=== PATIENT | female | born 1940 | race Caucasian/White ===

== ENCOUNTER 2016-12-26 05:54 | Emergency (ER) | payer OTHER ==
[~2016-12-26] VITALS: Ht 157.5 cm; Wt 79.4 kg
[~2016-12-26 05:54] MED LIST: FERR325T58 PO; HYDR-963 PO
[2016-12-26 06:05] VITALS: BP 190/71
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
[2016-12-26] MEDS ORDERED: ACETAMINOPHEN 500 MG TABLET PO ONE (06:30)
[2016-12-26] MEDS ORDERED: IBUPROFEN 400 MG TABLET. PO ONE (06:30)
[2016-12-26] MEDS ORDERED: NAPR-683 PO (07:20)
[2016-12-26] MEDS ORDERED: ACET325T9 PO (07:20)
--- NOTE | 2016-12-26 07:28 | RAD ---
Indication: Right elbow pain. Patient woke up with a swollen elbow. Technique: 3 views of the right elbow are submitted for review. No comparison is available. Findings: There is no fracture or dislocation. There is no displacement of fat pads/joint effusion. There is no gross bone destruction. There is no radiopaque foreign body Impression: Negative for fracture.
== END 2016-12-26 07:38 | disposition home or self-care (01) ==
LOC: ER 05:54
DX: M25.521 Pain in right elbow (principal); M19.90 Unspecified osteoarthritis, unspecified site; Z88.2 Allergy status to sulfonamides
CPT/HCPCS: 73080; 99284

== ENCOUNTER → 2017-05-03 | Outpatient (CLI) | payer OTHER | END | disposition home or self-care (01) | LOC: KCIC MRI 14:57 | DX: S83.232A Complex tear of medial meniscus, current injury, left knee, initial encounter (principal); M17.12 Unilateral primary osteoarthritis, left knee; M25.762 Osteophyte, left knee; M79.89 Other specified soft tissue disorders; R60.0 Localized edema; X58.XXXA Exposure to other specified factors, initial encounter; Y93.89 Activity, other specified; Y92.89 Other specified places as the place of occurrence of the external cause; Y99.8 Other external cause status | CPT/HCPCS: 73721 ==

== ENCOUNTER → 2017-07-17 | Outpatient (CLI) | payer OTHER ==
[2017-07-17 21:14] LABS: MRSA BY PCR Negative (Negative)
== END | disposition home or self-care (01) ==
LOC: SURGPAT 13:02
DX: Z01.818 Encounter for other preprocedural examination (principal); M17.12 Unilateral primary osteoarthritis, left knee
CPT/HCPCS: 36415; 71046; 87641; 93005

== ENCOUNTER → 2017-08-02 | Outpatient (CLI) | payer OTHER | END | disposition home or self-care (01) | LOC: ECHO 08:15 | DX: Z01.810 Encounter for preprocedural cardiovascular examination (principal); I08.1 Rheumatic disorders of both mitral and tricuspid valves; I31.3 Pericardial effusion (noninflammatory) | CPT/HCPCS: 93306 ==

== ENCOUNTER 2017-08-08 05:34 | Inpatient (IN) | payer OTHER ==
[2017-08-08] MEDS ORDERED: MELOXICAM 7.5 MG TABLET PO (06:00)
[2017-08-08] MEDS: ACETAMINOPHEN 500 MG TABLET PO (06:51)
[2017-08-08] MEDS: IV RINGERS,LACTATED 1000ML 1,000 ML IV (06:52)
[2017-08-08] MEDS ORDERED: MORPHINE SULFATE 4 MG/ML DISP.SYRIN. IV ×3 (07:00→10:00)
[2017-08-08] MEDS ORDERED: fentaNYL PF VIAL 100 MCG/2 ML VIAL IV ×2 (07:00→10:00)
[2017-08-08] MEDS ORDERED: LIDOCAINE 1% PF 2 ML VIAL. ID (07:00)
[2017-08-08] MEDS ORDERED: ONDANSETRON PF 4 MG/2 ML VIAL. IV (07:00)
[2017-08-08] MEDS ORDERED: PROCHLORPERAZINE 10 MG/2 ML VIAL. IV ×2 (07:00→10:00)
[2017-08-08] MEDS ORDERED: fentaNYL PF VIAL 100 MCG/2 ML VIAL (07:07)
[2017-08-08] MEDS ORDERED: PHENYLEPHRINE in 0.9% NACL PF 1 MG/10 ML SYRINGE. IV (07:08)
[2017-08-08] MEDS ORDERED: PROPOFOL 20 ML IV (07:08)
[2017-08-08] MEDS ORDERED: DEXAMETHASONE SOD PHOS 20 MG/5 ML VIAL. (07:29)
[2017-08-08] MEDS ORDERED: ONDANSETRON PF 4 MG/2 ML VIAL. (07:29)
[2017-08-08] MEDS ORDERED: SEVOFLURANE 61 TO 120 MINUTES. IH (07:29)
[2017-08-08] MEDS: TRANEXAMIC ACID 1,000 MG in IV NS 50ML -- 1ST BAG INJ (07:40)
[2017-08-08] MEDS: TOBRAMYCIN POWDER 1.2 GM VIAL. (08:13)
[2017-08-08] MEDS: VANCOMYCIN 1 GM VIAL. (08:14)
[2017-08-08] MEDS: TV=100ml MORPHINE 5 MG, KETOROLAC 30 MG, ROPIVacaine 0.5% PF 60 ML, EPINEPH... INT ART (08:15)
[2017-08-08] MEDS: TRANEXAMIC ACID 1,000 MG in IV NS 50ML -- 2ND BAG INJ (08:45)
[2017-08-08] MEDS ORDERED: PROCHLORPERAZINE 5 MG TABLET. PO (10:00)
[2017-08-08] MEDS ORDERED: ACETAMINOPHEN 325 MG TABLET. PO (10:00)
[2017-08-08] MEDS ORDERED: diphenhydrAMINE 50 MG/ML VIAL IV (10:00)
[2017-08-08] MEDS ORDERED: CALCIUM CARBONATE 500 MG TAB.CHEW PO (10:00)
[2017-08-08] MEDS ORDERED: HYDROcodone/APAP 10/325 1 TAB TABLET PO (10:00)
[2017-08-08] MEDS ORDERED: DEXTROSE 50% 25 GM / 50ML DISP.SYRIN. IV (10:00)
[2017-08-08] MEDS ORDERED: traMADol 50 MG TABLET PO (10:00)
[2017-08-08] MEDS ORDERED: METOCLOPRAMIDE HCL 10 MG/2 ML VIAL. IV (10:00)
[2017-08-08] MEDS ORDERED: 0.9 % SODIUM CHLORIDE 10 ML DISP.SYRIN. IV (10:00)
[2017-08-08] MEDS ORDERED: MORPHINE SULFATE 10 MG/ML VIAL. IV (10:00)
[2017-08-08] MEDS: IV DEXTROSE 5 %-0.45 % NACL 1,000 ML IV (10:37)
[2017-08-08] MEDS: fentaNYL PF VIAL 100 MCG/2 ML VIAL IV ×3 (10:37→11:35)
[2017-08-08] MEDS: MORPHINE SULFATE 4 MG/ML DISP.SYRIN. IV ×2 (13:18→21:22)
[2017-08-08] MEDS: FERROUS SULFATE 325 MG TABLET. PO (16:46)
[2017-08-08] MEDS: HYDROcodone/APAP 7.5/325MG 1 TAB TABLET PO ×2 (16:46→20:07)
[2017-08-08] MEDS: KETOROLAC 30 MG, BUPIVACAINE MPF 0.25% 20 ML, EPINEPHrine 0.5 MG in TOTAL VOLUME SYRING... INT ART (18:00)
[2017-08-08] MEDS: ASPIRIN ENTERIC COATED 325 MG TABLET.DR. PO (21:21)
[2017-08-09] MEDS: oxyCODONE/APAP 5/325 1 TAB TABLET PO (00:56)
[2017-08-09] MEDS: KETOROLAC 30 MG, BUPIVACAINE MPF 0.25% 20 ML, EPINEPHrine 0.5 MG in TOTAL VOLUME SYRING... INT ART (05:49)
[2017-08-09] MEDS ORDERED: MAGNESIUM HYDROXIDE 2,400 MG/30 ML ORAL.SUSP. PO (06:00)
[2017-08-09 06:36] LABS: HEMATOCRIT 32.8 % (36.0-47.0); HEMOGLOBIN 11.3 g/dL (12.0-15.5); MEAN CORPUSCULAR HGB CONC 35 g/dL (31-37)
[2017-08-09] MEDS: MORPHINE SULFATE 4 MG/ML DISP.SYRIN. IV (07:57)
[2017-08-09] MEDS: MULTIVITAMIN with MINERAL TABLET. PO (08:03)
[2017-08-09] MEDS: MELOXICAM 7.5 MG TABLET PO (08:03)
[2017-08-09] MEDS: SENNOSIDES/DOCUSATE 8.6/50MG TABLET. PO (08:03)
[2017-08-09] MEDS: FERROUS SULFATE 325 MG TABLET. PO ×2 (08:04→17:00)
[2017-08-09] MEDS: oxyCODONE/APAP 7.5/325 1 TAB TABLET PO ×4 (08:04→20:52)
[2017-08-09] MEDS: ASPIRIN ENTERIC COATED 325 MG TABLET.DR. PO ×2 (08:04→20:52)
[2017-08-09] MEDS: CHOLECALCIFEROL (VITAMIN D3) 1,000 UNIT TABLET PO (08:04)
[2017-08-09] MEDS ORDERED: BISACODYL 10 MG SUPP.RECT. PR (16:00)
[2017-08-09] MEDS: ZOLPIDEM 5 MG TABLET. PO (22:11)
[2017-08-10] MEDS: oxyCODONE/APAP 7.5/325 1 TAB TABLET PO ×2 (03:22→08:04)
[2017-08-10 04:58] LABS: HEMATOCRIT 31.5 % (36.0-47.0); MEAN CORPUSCULAR HGB CONC 35 g/dL (31-37)
[2017-08-10] MEDS: SENNOSIDES/DOCUSATE 8.6/50MG TABLET. PO (08:04)
[2017-08-10] MEDS: ASPIRIN ENTERIC COATED 325 MG TABLET.DR. PO ×2 (08:04→21:00)
[2017-08-10] MEDS: CHOLECALCIFEROL (VITAMIN D3) 1,000 UNIT TABLET PO (08:04)
[2017-08-10] MEDS: MULTIVITAMIN with MINERAL TABLET. PO (08:04)
[2017-08-10] MEDS: FERROUS SULFATE 325 MG TABLET. PO ×2 (08:05→17:00)
[2017-08-10] MEDS: MELOXICAM 7.5 MG TABLET PO (08:05)
[2017-08-10] MEDS: ONDANSETRON ODT 4 MG TAB.RAPDIS. PO (10:02)
[2017-08-10] MEDS: traMADol 50 MG TABLET PO ×2 (12:57→21:00)
[2017-08-10] MEDS: ZOLPIDEM 5 MG TABLET. PO (22:24)
[2017-08-11 05:07] LABS: HEMATOCRIT 29.7 % (36.0-47.0); HEMOGLOBIN 10.5 g/dL (12.0-15.5); MEAN CORPUSCULAR HGB CONC 35 g/dL (31-37)
[2017-08-11] MEDS: FERROUS SULFATE 325 MG TABLET. PO (07:42)
[2017-08-11] MEDS: MULTIVITAMIN with MINERAL TABLET. PO (08:16)
[2017-08-11] MEDS: SENNOSIDES/DOCUSATE 8.6/50MG TABLET. PO (08:16)
[2017-08-11] MEDS: CHOLECALCIFEROL (VITAMIN D3) 1,000 UNIT TABLET PO (08:16)
[2017-08-11] MEDS: ASPIRIN ENTERIC COATED 325 MG TABLET.DR. PO (08:16)
[2017-08-11] MEDS: traMADol 50 MG TABLET PO ×2 (08:16→12:24)
[2017-08-11] MEDS: MELOXICAM 7.5 MG TABLET PO (08:17)
== END 2017-08-11 14:20 | disposition home health service (06) | DRG 470 ==
LOC: OPSVCIP 05:34 → 4 SOUTHEST 11:05
PROC: 0SRD069 Replacement of Left Knee Joint with Oxidized Zirconium on Polyethylene Synthetic Substitute, Cemented, Open Approach (ICD-10-PCS; principal; 2017-08-08 07:10)
DX: M17.12 Unilateral primary osteoarthritis, left knee (principal); Z82.3 Family history of stroke; Z82.49 Family history of ischemic heart disease and other diseases of the circulatory system; Z83.3 Family history of diabetes mellitus; Z88.2 Allergy status to sulfonamides; Z91.018 Allergy to other foods
CPT/HCPCS: 36415; 73560; 85014; 85018; 86850; 86900; 86901; 88304; 88311; 97110-GO; 97110-GP; 97116-GP; 97150-GP; 97162-GP; 97166-GO; 97530-GP; 97535-GO; A7015; C1713; J0171; J0690; J1100; J1885; J2270; J2370; J2405; J2704; J2795; J3010; J3260; J3370; J3490; J7030; J7120; Q0162

== ENCOUNTER → 2018-07-04 | Outpatient (CLI) | payer OTHER ==
[2017-08-11 13:22] VITALS: BP 129/54
[~2018-07-04] MED LIST changes: +ACET-182 PO; +ACET325T9 PO; +ASPI325T11 PO; +CEPH500T PO; +CHOL10003 PO; +DICL100G18 TP; +GING250C PO; +HYDR-3135 PO; -HYDR-963 PO; +IBUP-1027 PO; +MELO15TA6 PO; +NAPR-683 PO; +TRAM50TA PO; +TURM538C PO
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
== END | disposition home or self-care (01) ==
LOC: PNCL 12:51
PROVIDERS: ATTEND Anesthesiology
DX: M54.5 Low back pain (principal); M79.604 Pain in right leg; M19.90 Unspecified osteoarthritis, unspecified site; Z88.8 Allergy status to other drugs, medicaments and biological substances; Z90.49 Acquired absence of other specified parts of digestive tract; Z96.652 Presence of left artificial knee joint; Z96.612 Presence of left artificial shoulder joint
CPT/HCPCS: G0463

== ENCOUNTER → 2018-07-18 | Outpatient (CLI) | payer OTHER ==
[2017-08-11 13:22] VITALS: BP 129/54
[~2018-07-18] MED LIST changes: +IOHEXOL 180 MG/ML 10 ML VIAL. ONE; +methylPREDNISolone ACETATE 40 MG/ML VIAL. ONE; +methylPREDNISolone ACETATE 80 MG/ML VIAL. ONE
--- NOTE | 2018-07-19 01:14 | PAIN ---
DATE OF SERVICE: 07/18/2018 PROGRESS NOTE FOR PAIN CLINIC: DIAGNOSES: Lumbar radiculopathy with lumbar degenerative disk disease, lumbar spinal stenosis. HISTORY OF PRESENT ILLNESS: The patient is an 78-year-old female who returns for followup status post initial evaluation and preauthorization for lumbar epidural steroid injection. The patient reports still significant pain in the low back, worse in the right lower extremity as it was previously. The patient reports it is a 9-10 on a scale of 10 at its worst, 8-9 on average and 8 at its least and is an 8 today. The patient reports it is aching type, tingling, cramping and becoming more severe with walking, standing, changing positions, better with sitting or lying down. It awakens her from sleep about every 5 hours. The patient reports no new motor or sensory deficits, no new bowel or bladder incontinence, still significant pain with activity as noted. PHYSICAL EXAMINATION: VITAL SIGNS: The patient's blood pressure 148/60, pulse 73, respirations are 20, temperature is 98.4 degrees Fahrenheit, weight is 186 pounds. GENERAL: The patient is awake, alert, oriented, appropriate, very pleasant demeanor. HEENT: Head shows normocephalic, atraumatic. Extraocular movements are intact and symmetrical. Oral cavity: Mucous membranes moist and pink. Dentition is intact. NECK: Shows anterior throat supple without palpable lymphadenopathy noted. Swallow reflex symmetrical. CHEST: Shows normal on inspection. Breath sounds clear to auscultation bilaterally. HEART: Shows S1, S2 clear. No murmurs auscultated. ABDOMEN: Soft, nontender, nondistended. No palpable organomegaly is noted. No rebound or guarding demonstrated. BACK: Shows spine grossly in the midline. Normal appearing thoracic kyphosis and lumbar lordotic curvature. Lumbar paraspinous muscle shows symmetrical on inspection, with palpation shows some moderate tenderness diffusely in the inferior aspect of the paraspinous muscle bilaterally. The patient shows no trigger points. No atrophy, hypertrophy, no asymmetry. The patient has good rotational motion of lumbar spine, both laterally as well as extension and flexion without difficulty. EXTREMITIES: Lower extremities show deep tendon reflexes at 0/4 in the left and 1+ in the right patellar tendon and tendo calcaneus tendons are 1+ bilaterally. Motor exam is strong with approximately 4 on a scale of 5 right, 5/5 on the left with dorsiflexion and extension. Peripheral pulses are 1+ posterior tibia. No peripheral edema is noted bilaterally. Options were discussed with the patient. The patient's old chart was reviewed as her current medication regimen updated. Current review of systems updated today as well. We will proceed with a lumbar epidural steroid injection today with fluoroscopic guidance. Risks were again discussed including, but not limited to bleeding, infection, possibility of epidural hematoma, subsequent neurologic compromise, dural puncture headaches, spinal cord and/or nerve damage, side effects of steroid medication and poor results regarding pain control. The patient understands and wished to proceed. The patient will return to clinic in approximately 2 weeks for followup, was counseled as to return appointment, activity level and side effects to be aware of. DIAGNOSES: Lumbar radiculopathy with lumbar degenerative disk disease, lumbar spinal stenosis. PROCEDURE: Lumbar epidural steroid injection, translaminar approach L4-L5 level using C-arm fluoroscopic guidance under sterile prep and drape using local anesthetic. MEDICATION INJECTED: A total of 120 mg Depo-Medrol plus 10 mL of preservative-free normal saline and 2 mL of Isovue for contrast. CONDITION AT DISCHARGE: Stable. The patient tolerated the procedure well, had no complications. KASSI HIGGINS MD DR: JOSE/nts JOB#: [id number] / [id number]
== END | disposition home or self-care (01) ==
LOC: PNCL 10:32
PROVIDERS: ATTEND Anesthesiology
DX: M51.16 Intervertebral disc disorders with radiculopathy, lumbar region (principal); M48.061 Spinal stenosis, lumbar region without neurogenic claudication; Z88.2 Allergy status to sulfonamides; Z91.018 Allergy to other foods
CPT/HCPCS: 62323; J1030; J1040; Q9965

== ENCOUNTER → 2018-08-08 | Outpatient (CLI) | payer OTHER ==
[2017-08-11 13:22] VITALS: BP 129/54
[~2018-08-08] MED LIST changes: -IOHEXOL 180 MG/ML 10 ML VIAL. ONE; -methylPREDNISolone ACETATE 40 MG/ML VIAL. ONE; -methylPREDNISolone ACETATE 80 MG/ML VIAL. ONE
--- NOTE | 2018-08-09 03:16 | PAIN ---
DATE OF SERVICE: 08/08/2018 PROGRESS NOTE FOR PAIN CLINIC DIAGNOSES: 1. Lumbar radiculopathy with lumbar degenerative disk disease and lumbar spinal stenosis. 2. Cervical radiculopathy with cervical degenerative disk disease. HISTORY OF PRESENT ILLNESS: The patient is an 78-year-old female who returns for followup status post lumbar epidural steroid injection x 1. The patient reports 95% improvement, still maintaining after 2 weeks with almost no pain left in the back, only some very mild aching with walking but otherwise, doing very well, has been increasing her distance walking, increasing her activities at home, traveling and sitting, sleeping better at night. The patient reports her main complaint, however, is neck and right upper extremity pain. The patient has some radiation into the base of the neck and shoulder on the right and also the front of the shoulder and into the arm, forearm and biceps region on the right side in a radicular pattern as well, which is more noticeable now but her low back is doing much better. The patient reports pain in her neck and shoulders tight, shooting, sharp, cramping at times in the base of the neck, sometimes constant, much worse with activity with lifting items, reaching forward or operating a car or driving with her right arm. The patient reports she is right handed and becomes more noticeable but does not awaken her from sleep at night. The patient reports no new motor or sensory deficits and no new changes with significant radicular pain in the right upper extremity as noted. PHYSICAL EXAMINATION: VITAL SIGNS: The patient's blood pressure 152/69, pulse 74, respirations 20 and temperature 97.9 degrees Fahrenheit. Height is 5 feet 1 inch and weight is 189 pounds. GENERAL: The patient is awake, alert, oriented, appropriate and very pleasant demeanor. HEENT: Head shows normocephalic and atraumatic. Extraocular movements are intact and symmetrical. Oral cavity, mucous membranes are moist and pink. Dentition is intact. NECK: Shows anterior throat supple without palpable lymphadenopathy noted. Swallow reflex symmetrical. CHEST: Shows normal on inspection. Breath sounds clear to auscultation bilaterally. HEART: Shows S1 and S2 clear. No murmurs auscultated. ABDOMEN: Obese, soft, nontender and nondistended. BACK: Shows spine grossly in the midline. Cervical paraspinous musculature shows symmetrical on inspection with palpation shows some mild tenderness in the inferior aspect of the cervical paraspinous muscles, more on the right than the left as well as in the superior medial trapezius on the right but not the left without radiation. The patient shows good rotational motion of the cervical spine with some minor tenderness with extension but not with forward flexion and also good rotation of the right and left lateral past 45 degrees without difficulty. Low back shows midline spine, very mild tenderness in the low lumbar distribution, slightly more on the right than the left but good rotational motion of the lumbar spine as well greater than 10 degrees right and left as well as extension greater than 10 degrees, forward flexion 45 degrees without pain reported. EXTREMITIES: The patient's upper extremities show deep tendon reflexes 2+ in the biceps and triceps tendons. Motor exam is approximately 4 on a scale of 5 with right raw sampler strength and 5/5 on the left. Peripheral pulses are 2+ radial distribution. No peripheral edema is noted. Lower extremities show deep tendon reflexes 0/4 in the left patellar, 1+ in the right. Lower extremity motor exam is 4 on a scale 5 on the right and 5/5 on the left with dorsiflexion and extension. Options were discussed with the patient. The patient's old chart was reviewed as well as her current medication regimen updated. Current review of systems updated today as well and we will preauthorize the patient for a cervical epidural steroid injection with clinical cervical radiculopathy at C5-C6 dermatomal distribution on the right. The patient continues to do stretching and strengthening exercises but with significant pain prevailing now that her low back is doing better. Her right arm and shoulder is much more noticeable and tender. We reviewed her MRI scan with her today, which is showing a C5-C6 subarticular disk protrusion contributing neural foramen encroachment, facet arthropathy, moderate right foraminal encroachment and [id number] left foraminal encroachment. The patient will return to the clinic, will have a preauthorization with her insurance provider for a C5-C6 cervical epidural steroid injection for C5-C6 right-sided clinical radiculopathy. The patient will continue with exercises in the meantime, as noted and we will follow up as scheduled for a cervical epidural steroid injection at that time. KASSI HIGGINS MD DR: JOSE/maryse JOB#: [id number] / [id number]
== END | disposition home or self-care (01) ==
LOC: PNCL 10:08
PROVIDERS: ATTEND Anesthesiology
DX: M51.16 Intervertebral disc disorders with radiculopathy, lumbar region (principal); M48.061 Spinal stenosis, lumbar region without neurogenic claudication; M50.10 Cervical disc disorder with radiculopathy, unspecified cervical region
CPT/HCPCS: G0463

== ENCOUNTER → 2018-08-20 | Outpatient (CLI) | payer OTHER ==
[2017-08-11 13:22] VITALS: BP 129/54
[~2018-08-20] MED LIST changes: +IOHEXOL 180 MG/ML 10 ML VIAL. ONE; +methylPREDNISolone ACETATE 40 MG/ML VIAL. ONE; +methylPREDNISolone ACETATE 80 MG/ML VIAL. ONE
--- NOTE | 2018-08-20 22:29 | PAIN ---
DATE OF SERVICE: 08/20/2018 PROGRESS NOTE FOR PAIN CLINIC DIAGNOSES: 1. Lumbar radiculopathy with lumbar degenerative disk disease, lumbar spinal stenosis. 2. Cervical radiculopathy with cervical degenerative disk disease. HISTORY OF PRESENT ILLNESS: The patient is an 78-year-old female who returns for followup status post lumbar epidural steroid injection x 1 with about 95% improvement. We did preauthorize her for a cervical epidural steroid injection. She has some significant right radicular pain, which is still present. The patient reports it is worse with using her upper extremities as she has been dropping some items from the right hand, especially has some cramping and stinging in both the hands at times as well as in the neck on the right side into the right shoulder with activity or even turning the head to the right side. The patient reports over the past week, it has been a 5 on a scale of 10 at its worst, 4 on average, 2 at its least and is a 2 today. The patient reports it is dull and cramping, shooting into the right side as described. The patient reports no new motor or sensory deficits, no new bowel or bladder incontinence or other complaints. PHYSICAL EXAMINATION: VITAL SIGNS: Today, the patient's blood pressure is 160/72, pulse 78, respirations 18, temperature 98.4 degrees Fahrenheit. Height is 5 feet 1 inch, weight is 189 pounds. GENERAL: The patient is awake, alert, oriented, appropriate, very pleasant demeanor. HEENT: Head shows normocephalic, atraumatic. Extraocular movements are intact and symmetrical. Oral cavity shows mucous membranes moist and pink. Dentition intact. NECK: Shows anterior throat supple without palpable lymphadenopathy noted. Swallow reflex symmetrical. CHEST: Shows normal on inspection. Breath sounds are clear to auscultation bilaterally. HEART: Shows S1, S2 clear. No murmurs auscultated. ABDOMEN: Soft, nontender, nondistended. No palpable organomegaly is noted. No rebound or guarding demonstrated. BACK: Shows spine grossly in the midline. Increased thoracic kyphosis, some minor flattening of cervical lordotic curvature. Cervical paraspinous muscle shows symmetrical on inspection, on palpation shows some moderate tenderness diffusely, but only diffusely without significant radiation. EXTREMITIES: The patient's upper extremities show deep tendon reflexes 2+ in the biceps and triceps tendons. Motor exam is 4 on a scale of 5 on the right with steward/stewardess strength with biceps and triceps flexion is 5/5 on the left. Peripheral pulses are 2+ in the radial distribution. No peripheral edema is noted bilaterally. Options were discussed with the patient. The patient's old chart was reviewed, as her medication regimen updated. Current review of systems updated today as well. We will proceed with a cervical epidural steroid injection today with fluoroscopic guidance. Risks were again discussed including, but not limited to, bleeding, infection, possibility of epidural hematoma and subsequent neurological compromise, dural puncture, headaches, spinal cord and/or nerve damage, side effects of steroid medication and poor results regarding pain control. The patient understands and wished to proceed. The patient will return to the clinic in approximately 2 weeks for followup, was counseled as to return appointment, activity level and side effects to be aware of. DIAGNOSIS: Cervical radiculopathy with cervical degenerative disk disease. PROCEDURE: Cervical epidural steroid injection, translaminar approach, C6-C7 level using C-arm fluoroscopic guidance under sterile prep and drape using local anesthetic. MEDICATION INJECTED: A total of 120 mg of Depo-Medrol plus 5 mL of preservative-free normal saline and 2 mL of contrast. CONDITION ON DISCHARGE: Stable. The patient tolerated the procedure well, had no complications. KASSI HIGGINS MD DR: JOSE/maryse JOB#: [id number] / [id number]
== END ==
LOC: PNCL 10:24
PROVIDERS: ATTEND Anesthesiology
DX: M50.123 Cervical disc disorder at C6-C7 level with radiculopathy (principal)
CPT/HCPCS: 62321; J1030; J1040; Q9965

== ENCOUNTER → 2018-09-03 | Outpatient (CLI) | payer OTHER ==
[2017-08-11 13:22] VITALS: BP 129/54
[~2018-09-03] MED LIST changes: -IOHEXOL 180 MG/ML 10 ML VIAL. ONE; -methylPREDNISolone ACETATE 40 MG/ML VIAL. ONE; -methylPREDNISolone ACETATE 80 MG/ML VIAL. ONE
--- NOTE | 2018-09-03 12:24 | PAIN ---
DATE OF SERVICE: 09/03/2018 PROGRESS NOTE FOR PAIN CLINIC DIAGNOSES: 1. Lumbar radiculopathy with lumbar degenerative disk disease, lumbar spinal stenosis. 2. Cervical radiculopathy with cervical degenerative disk disease. HISTORY OF PRESENT ILLNESS: The patient is an 80-year-old female who returns for followup status post both lumbar and cervical epidural steroid injection. The patient did very well, had 75% improvement after last cervical injection and was about 95% improvement after lumbar injection. The patient reports she is doing quite well. She is starting a new workout routine later this week with the [facility] both pool therapy and personal lines sales executive will be working with her 4 days a week. The patient reports she is very much looking forward to this and losing some weight, feeling better. The patient reports still significant improvement in both the neck, shoulders, upper extremities and the low back and leg, now just a dull ache remaining in the low back when she first gets up and is walking, otherwise doing very well. The patient reports her pain is a 5-6 on a scale of 10 at its worst over the past week, 5 on average, 2 at its least and is a 5 today. The patient reports no new motor or sensory deficits, no new bowel or bladder incontinence or other complaints, sleeping well at night, has been increasing activities, walking and doing household activities as well as traveling with greater ease and comfort. PHYSICAL EXAMINATION: VITAL SIGNS: Shows blood pressure 155/65, pulse 73, respirations 18, temperature 98.1 degrees Fahrenheit, height is 5 feet 1 inch, weight is 192 pounds. GENERAL: The patient is awake, alert, oriented, appropriate, very pleasant demeanor. HEENT: Shows normocephalic, atraumatic. Extraocular movements intact and symmetrical. Oral cavity: Mucous membranes moist and pink. Dentition is intact. NECK: Shows anterior throat supple without lymphadenopathy. Neck shows full rotational motion of cervical spine, both laterally as well as extension and full forward flexion without significant pain reported. EXTREMITIES: The patient's lower extremities show deep tendon reflexes 1+ on the right and 0 on the left in the patellar tendon and tendo calcaneus tendons are 1+ bilaterally. Upper extremities show deep tendon reflexes 2+ bilaterally in the biceps and triceps tendons. Motor exam is approximately 4 on a scale of 5 on the right vice president supply chain strength compared to the left vice president supply chain strength which is 5/5. Peripheral pulses are 2+ radial, 1+ posterior tibial. No peripheral edema is noted bilaterally. ASSESSMENT AND PLAN: Options were discussed with the patient. The patient's old chart was reviewed as her current medication regimen updated, current review of system updated today as well and we will hold on any further injections at this time as the patient is doing quite a bit better, starting her physical therapy routine and workout routine with the [facility] including water therapy and we will have her return on as needed basis at this time. The patient was counseled as to activity level as well as routine with regimen. Also, we discussed dietary strategies with the weight loss goal as well. The patient will return at this time on an as needed basis. KASSI HIGGINS MD DR: JOES/nts JOB#: [id number] / [id number]
== END | disposition home or self-care (01) ==
LOC: PNCL 09:28
PROVIDERS: ATTEND Anesthesiology
DX: M51.16 Intervertebral disc disorders with radiculopathy, lumbar region (principal); M48.061 Spinal stenosis, lumbar region without neurogenic claudication; M50.10 Cervical disc disorder with radiculopathy, unspecified cervical region
CPT/HCPCS: G0463

== ENCOUNTER → 2018-11-05 | Outpatient (CLI) | payer OTHER ==
[2017-08-11 13:22] VITALS: BP 129/54
[~2018-11-05] MED LIST changes: +MELO15TA23 PO
--- NOTE | 2018-11-05 10:09 | EKG ---
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 Electronically Signed On 11-05-2018 13:35:47 CDT by Art Ochoa
--- NOTE | 2018-11-05 10:18 | RAD ---
EXAM: Chest, 2 views. HISTORY: Preoperative evaluation. COMPARISON: 07/17/2017 FINDINGS: 2 views of the chest are obtained. There is no infiltrate, pleural effusion or pneumothorax. The heart is normal in size. There is a left shoulder arthroplasty. IMPRESSION: No acute pulmonary finding. Electronically signed by: Lakeshia Hanna MD (11/05/2018 10:16 AM) [id number]
== END | disposition home or self-care (01) ==
LOC: SURGPAT 08:54
PROVIDERS: ATTEND Orthopaedic Surgery
DX: Z01.818 Encounter for other preprocedural examination (principal); T84.84XA Pain due to internal orthopedic prosthetic devices, implants and grafts, initial encounter; Z88.2 Allergy status to sulfonamides; Z96.612 Presence of left artificial shoulder joint
CPT/HCPCS: 36415; 71046; 87641; 93005

== ENCOUNTER 2018-11-06 07:10 | Inpatient (IN) | payer OTHER ==
[~2018-11-06] VITALS: Ht 165.1 cm; Wt 88.0 kg
[~2018-11-06 07:10] MED LIST changes: +HYDROmorphone 2 MG/ML VIAL IV PRN; +IV RINGERS,LACTATED 1000ML 1,000 ML IV SCH; +MORPHINE SULFATE 2 MG/ML VIAL. IV PRN; +MORPHINE SULFATE 5 MG, KETOROLAC 30MG VIAL 30 MG, ROPIVacaine 0.5% PF 60 ML, EPINEPHrin... INT ART ONE; +ONDANSETRON PF 4 MG/2 ML VIAL. IV PRN; +PROCHLORPERAZINE 10 MG/2 ML VIAL. IV PRN; +fentaNYL PF VIAL 100 MCG/2 ML VIAL IV PRN
--- NOTE | 2018-11-12 15:06 | PDOC1 ---
History and Physical Date of Admission Date of Admission 11/13/18 Identification/Chief Complaint Chief Complaint Painful left total knee arthroplasty Source Source: Chart review History of Present Illness History of Present Illness Ms. Clark is an 78-year-old female who presents to discuss lab results and revision surgery. She had a left total knee artoplasty done by me on 08/08/17. The MRI of the cervical and lumbar spine both show severe pathology left and right sides. She also has "shoulder pain" although describes radicular type pain in a radicular pattern. She notes that she works out regularly at the [employer]. Her knee symptoms are perhaps from mild instability and possible contact of some remaining patellar cartilage. The symptoms are bad enough that she is willing to undergo revision surgery. There was no infection on workup. Past Medical History Cardiovascular: No pertinent hx Pulmonary: No pertinent hx GI: No pertinent hx Endocrine: No pertinent hx Past Surgical History Past Surgical History: Total knee replacement Family History Family History: Diabetes, Heart Disease, Hypertension, Stroke Social History ALCOHOL: none Drugs: None Current Medications Current Medications Current Medications Morphine Sulfate 5 mg/Ketorolac Tromethamine 30 mg/Ropivacaine 60 ml/Epinephrine HCl 0.5 mg/Sodium Chloride 100 ml @ 100 mls/hr 1X ONCE INT ART ; Start 11/06/18 at 06:00; Stop 11/06/18 at 06:59; Status Cancel Ondansetron HCl (Zofran) 4 mg PRN Q6HRS PRN IV NAUSEA/VOMITING; Start 11/06/18 at 07:00; Stop 11/07/18 at 06:59; Status Cancel Fentanyl Citrate (Fentanyl 2ml Vial) 25 mcg PRN Q5MIN PRN IV MILD PAIN 1-3; Start 11/06/18 at 07:00; Stop 11/07/18 at 06:59; Status Cancel Fentanyl Citrate (Fentanyl 2ml Vial) 50 mcg PRN Q5MIN PRN IV MODERATE TO SEVERE PAIN; Start 11/06/18 at 07:00; Stop 11/07/18 at 06:59; Status Cancel Morphine Sulfate (Morphine Sulfate) 1 mg PRN Q10MIN PRN IV SEVERE PAIN 7-10; Start 11/06/18 at 07:00; Stop 11/07/18 at 06:59; Status Cancel Ringer's Solution 1,000 ml @ 30 mls/hr Q24H IV ; Start 11/06/18 at 07:00; Stop 11/06/18 at 18:59; Status Cancel Hydromorphone HCl (Dilaudid) 0.5 mg PRN Q10MIN PRN IV SEV PAIN, Second choice; Start 11/06/18 at 07:00; Stop 11/07/18 at 06:59; Status Cancel Prochlorperazine Edisylate (Compazine) 5 mg PACU PRN PRN IV NAUSEA, MRX1; Start 11/06/18 at 07:00; Stop 11/07/18 at 06:59; Status Cancel Ondansetron HCl (Zofran) 4 mg PRN Q6HRS PRN IV NAUSEA/VOMITING; Start 11/13/18 at 07:00; Stop 11/14/18 at 06:59 Fentanyl Citrate (Fentanyl 2ml Vial) 25 mcg PRN Q5MIN PRN IV MILD PAIN 1-3; Start 11/13/18 at 07:00; Stop 11/14/18 at 06:59 Fentanyl Citrate (Fentanyl 2ml Vial) 50 mcg PRN Q5MIN PRN IV MODERATE TO SEVERE PAIN; Start 11/13/18 at 07:00; Stop 11/14/18 at 06:59 Morphine Sulfate (Morphine Sulfate) 1 mg PRN Q10MIN PRN IV SEVERE PAIN 7-10; Start 11/13/18 at 07:00; Stop 11/14/18 at 06:59 Ringer's Solution 1,000 ml @ 30 mls/hr Q24H IV ; Start 11/13/18 at 07:00; Stop 11/13/18 at 18:59 Lidocaine HCl (Xylocaine-Mpf 1% 2ml Vial) 2 ml PRN 1X PRN ID PRIOR TO IV START; Start 11/13/18 at 07:00; Stop 11/14/18 at 06:59 Hydromorphone HCl (Dilaudid) 0.5 mg PRN Q10MIN PRN IV SEV PAIN, Second choice; Start 11/13/18 at 07:00; Stop 11/14/18 at 06:59 Prochlorperazine Edisylate (Compazine) 5 mg PACU PRN PRN IV NAUSEA, MRX1; Start 11/13/18 at 07:00; Stop 9/4/19 at 06:59 Morphine Sulfate 5 mg/Ketorolac Tromethamine 30 mg/Ropivacaine 60 ml/Epinephrine HCl 0.5 mg/Sodium Chloride 100 ml @ 100 mls/hr 1X ONCE INT ART ; Start 11/13/18 at 06:00; Stop 11/13/18 at 06:59 Meloxicam (Mobic) 15 mg 1X PREOP PRN PO PRIOR TO PROCEDURE; Start 11/13/18 at 06:00; Stop 11/13/18 at 18:00 Acetaminophen (Tylenol) 1,000 mg 1X PREOP PRN PO PRIOR TO PROCEDURE; Start 11/13/18 at 06:00; Stop 11/13/18 at 18:00 Cefazolin Sodium/ Dextrose 50 ml @ 100 mls/hr 1X PREOP PRN IV PRIOR TO PROCEDURE; Start 11/13/18 at 06:00; Stop 11/13/18 at 18:00 Tranexamic Acid 1000 mg/Sodium Chloride 60 ml @ 60 mls/hr 1X PERIOP ONCE INJ ; Start 11/13/18 at 06:00; Stop 11/13/18 at 06:59 Tranexamic Acid 1000 mg/Sodium Chloride 60 ml @ 60 mls/hr 1X PERIOP ONCE INJ ; Start 11/13/18 at 08:00; Stop 11/13/18 at 08:59 Active Scripts Active Reported Meloxicam 15 Mg Tablet 1 Tab PO DAILY Pain Relief (Acetaminophen) 500 Mg Tablet 200 Mg PO PRN PRN Allergies Allergies: Coded Allergies: Sulfa (Sulfonamide Antibiotics) (Verified Allergy, Intermediate, rash, 08/08/17) strawberry (Verified Allergy, Intermediate, Hives, 11/05/18) Physical Exam General: Alert, Cooperative HEENT: Atraumatic Lungs: Normal air movement Heart: RRR Abdomen: Soft Extremities: No clubbing, No cyanosis, Normal pulses, Other (The LEFT knee shows a well-healed total knee scar, without drainage or ulcers. There is mild valgus instability with no masses and no effusion. There is mild tibiofemoral instability and tenderness to palpation at the medial and lateral patella. Range of motion is 0-125 degrees, with typical total knee crepitus but no pain at the extremes of motion. Muscle strength is normal (5/5) for quadriceps and hamstrings, and muscle tone is normal. The extensor mechanism is intact. The ski n shows a well-healed midline scar from total knee arthroplasty and no other lesions or rashes. Light touch sensation is intact. No edema and no varicosities. ) Skin: No significant lesion Neuro: Normal speech, Normal tone, Sensation intact Vitals Vitals Vital Signs Date Time Temp Pulse Resp B/P (MAP) Pulse Ox O2 Delivery O2 Flow Rate FiO2 11/05/18 09:30 98.0 94 20 95 98.0 Labs Labs ESR 25 Images Images [facility] [address] [place] [address] IMAGING REPORT Signed PATIENT: PATO CLARK ACCOUNT: [id number] : 1940 LOCATION: [facility] AGE: 78 SEX: F EXAM STATUS: REG CLI ORD. PHYSICIAN: ROSEANN SAMANO MD REASON: LEFT KNEE TKA 1 YR AGO PROCEDURE: KNEE LEFT 3V Left knee, 3 views, 05/21/2018: HISTORY: Postop knee replacement AP standing, lateral and tangential patellar views were obtained. No previous radiographs are available at this time for comparison purposes. A left total knee prosthesis is in place in satisfactory position. There is no radiographic evidence of loosening or infection. There is an elongated plaque-like calcification in the soft tissues of the distal thigh medially. Multiple phlebolith type calcifications are also noted in the soft tissues. The right knee, as visualized on the AP standing view, demonstrates moderate joint space narrowing, moderate marginal spurring and chondrocalcinosis. IMPRESSION: 1. The left knee prosthesis appears to be in satisfactory position. 2. Moderate degenerative change at the right knee. Electronically signed by: Larry Siddiqui MD (05/21/2018 10:15 AM) [facility] DICTATED and SIGNED BY: LARRY SIDDIQUI MD DATE: 05/21/18 1015 VTE Prophylaxis Ordered VTE Prophylaxis Devices: Yes VTE Pharmacological Prophylaxi: Yes Assessment/Plan Assessment/Plan I believe the patient's symptoms are due to contact between the remaining [place] cartilage and bone around the edges of the plastic patella prosthesis. I used a biconvex patella prosthesis, and the design of that prosthesis allows some contact of the remaining [place] tissue. It's a prosthesis that has some advantages by resecting less of the [place] bone, but may have disadvantages as well. My total knee patella resurfacing techniques have evolved over the years, and when she had her knee replacement in 2018, I was using the inset biconvex patella on patients with 21 mm or less thickness of their [place] patella, so as to avoid over-resection and risk of patella fracture or avascular necrosis. In my experience with the biconvex patellae, I felt there were more patients with anterior knee pain and I do have a patient who I since have successfully revised from biconvex to oval onlay patella. (The literature says the results of biconvex inset patella is not better but not worse: AURELIANO 2009 Ananya Dixon et al. The inset biconvex patella component is an alternative form of patella resurfacing in knee arthroplasty. We retrospectively reviewed 433 patients in whom 521 patella prostheses were implanted before June 1996 to determine survivorship, factors associated with failure of the implant, incidence of anterior knee pain, and factors that may be associated with the latter. We had clinical results for 204 surviving patients (242 knees) without failure of their implants with a minimum 10-year followup (mean, 11.4 years; range, 1017 years). For the remaining 229 patients we used chart or radiographic review to determine if failure of their implant or other complications had occurred. At latest followup, 14 patella components had been revised for aseptic reasons or were radiographically loose. The 10-year Berry-Abiola survivorship for the entire cohort for aseptic failure was 97.0%. Aseptic failure of the patella component was associated with the presence of osteonecrosis and the ab sence of a superior rim of bone radiographically. The incidence of anterior knee pain in surviving patients without failure of their implants was 7.8%. No factor examined was associated with anterior knee pain. Survivorship and clinical and radiographic results are equivalent, but not clearly superior, to those reported for other forms of patella resurfacing.) Based on her daily painful symptoms, tenderness of the patella, and x-ray findings, I gave her the option of proceeding with surgical revision. She has daily symptoms so I am actually recommending surgery, despite the option for nonoperative treatment. I think if I recut the patella, carefully, so as to avoid patellar necrosis, but resurface it entirely with an oval implant rather than the inset implant she has, this will improve her symptoms. She also has mild tibiofemoral instability, and I would be prepared for revision of her polyethylene. After reviewing the possible treatment options moving forward, I advised revision surgery. I explained the possible risks of revision surgery including infection and blood clots or continued pain along with the possible benefits and expectations. All of the patient's questions were answered and she agrees with this plan. She will schedule surgery at a mutually convenient date. Going forward, I will the attempt to minimize any cost and will consider the possibly of outpatient observation since her insurance company refused to pay for her hospital stay after her total knee.. ROSEANN SAMANO MD Nov 12, 2018 15:06
[2018-11-13] MEDS ORDERED: MORPHINE SULFATE 5 MG, KETOROLAC 30MG VIAL 30 MG, ROPIVacaine 0.5% PF 60 ML, EPINEPHrin... INT ART ONE ×5 (06:00)
[2018-11-13] MEDS ORDERED: MELOXICAM 7.5 MG TABLET PO PRN (06:00)
[2018-11-13] MEDS ORDERED: ACETAMINOPHEN 500 MG TABLET PO PRN (06:00)
[2018-11-13] MEDS ORDERED: TRANEXAMIC ACID 1,000 MG in IV NS 50ML -- 1ST BAG INJ ONE (06:00)
[2018-11-13] MEDS ORDERED: LIDOCAINE 1% PF 2 ML VIAL. ID PRN (07:00)
[2018-11-13] MEDS ORDERED: HYDROmorphone 2 MG/ML VIAL IV PRN (07:00)
[2018-11-13] MEDS ORDERED: MORPHINE SULFATE 2 MG/ML VIAL. IV PRN ×2 (07:00→18:45)
[2018-11-13] MEDS ORDERED: ONDANSETRON PF 4 MG/2 ML VIAL. IV PRN (07:00)
[2018-11-13] MEDS ORDERED: IV RINGERS,LACTATED 1000ML 1,000 ML IV SCH (07:00)
[2018-11-13] MEDS ORDERED: PROCHLORPERAZINE 10 MG/2 ML VIAL. IV PRN (07:00)
[2018-11-13] MEDS ORDERED: fentaNYL PF VIAL 100 MCG/2 ML VIAL IV PRN ×3 (07:00→18:45)
[2018-11-13] MEDS ORDERED: TRANEXAMIC ACID 1,000 MG in IV NS 50ML -- 2ND BAG INJ ONE (08:00)
[2018-11-13] MEDS ORDERED: TOBRAMYCIN POWDER 1.2 GM VIAL. ONE ×2 (12:52→13:52)
[2018-11-13] MEDS ORDERED: VANCOMYCIN 1 GM VIAL. ONE ×2 (12:52→13:52)
[2018-11-13] MEDS ORDERED: LIDOCAINE 2% PF 5 ML VIAL. ONE (13:59)
[2018-11-13] MEDS ORDERED: fentaNYL PF VIAL 100 MCG/2 ML VIAL ONE ×2 (13:59→17:58)
[2018-11-13] MEDS ORDERED: DEXAMETHASONE SOD PHOS 4 MG/ML VIAL ONE ×2 (13:59→15:23)
[2018-11-13] MEDS ORDERED: PROPOFOL 20 ML IV ONE (13:59)
[2018-11-13] MEDS ORDERED: ONDANSETRON PF 4 MG/2 ML VIAL. ONE (13:59)
[2018-11-13] MEDS ORDERED: SUCCINYLCHOLINE 200 MG/10 ML VIAL. ONE (14:00)
[2018-11-13] MEDS ORDERED: FAMOTIDINE 20 MG/2 ML VIAL ONE (15:23)
[2018-11-13] MEDS ORDERED: ROCURONIUM 50 MG/5 ML VIAL. ONE (15:24)
[2018-11-13] MEDS ORDERED: DESFLURANE 61 TO 120 MINUTES IH ONE (16:50)
[2018-11-13] MEDS ORDERED: GLYCOPYRROLATE 1 MG/5 ML VIAL. ONE (16:50)
[2018-11-13] MEDS ORDERED: NEOSTIGMINE METHYLSULFATE 5 MG/5 ML SYRINGE. ONE (16:50)
[2018-11-13] MEDS: fentaNYL PF VIAL 100 MCG/2 ML VIAL IV PRN ×2 (18:01→18:09)
[2018-11-13] MEDS ORDERED: MORPHINE SULFATE 2 MG/ML VIAL. ONE (18:14)
[2018-11-13] MEDS ORDERED: IV NORMAL SALINE 1000ML BAG 1,000 ML IV SCH (18:33)
[2018-11-13 18:45] VITALS: BP 134/63
[2018-11-13] MEDS ORDERED: CALCIUM CARBONATE 500 MG TAB.CHEW PO PRN (18:45)
[2018-11-13] MEDS ORDERED: IV DEXTROSE 5% 250 ML BAG. IV PRN (18:45)
[2018-11-13] MEDS ORDERED: diphenhydrAMINE 50 MG/ML VIAL IV PRN (18:45)
[2018-11-13] MEDS ORDERED: METOCLOPRAMIDE HCL 10 MG/2 ML VIAL. IV PRN (18:45)
[2018-11-13] MEDS ORDERED: MORPHINE SULFATE 4 MG/ML VIAL. IV PRN (18:45)
[2018-11-13] MEDS ORDERED: PROCHLORPERAZINE 5 MG TABLET. PO PRN (18:45)
[2018-11-13] MEDS ORDERED: ZOLPIDEM 5 MG TABLET. PO PRN (18:45)
[2018-11-13] MEDS ORDERED: 0.9 % SODIUM CHLORIDE 10 ML DISP.SYRIN. IV PRN (18:45)
[2018-11-13] MEDS ORDERED: DEXTROSE 50% 25 GM / 50ML DISP.SYRIN. IV PRN (18:45)
[2018-11-13 19:15] VITALS: BP 155/64
[2018-11-13 19:45] VITALS: BP 147/73
[2018-11-13] MEDS: KETOROLAC 30MG VIAL 30 MG, BUPIVACAINE MPF 0.25% 20 ML, EPINEPHrine 0.5 MG in TOTAL VOL... INT ART SCH (20:00)
--- NOTE | 2018-11-13 20:04 | PDOC4 ---
Operative Note Operative Note Date of Procedure: November 13, 2018 Pre-Op Diagnosis: Painful left total knee arthroplasty Post-Op Diagnosis: Painful left total knee arthroplasty Procedure: Revision left total knee arthroplasty including patella resurfacing revision, and revision of the polyethylene component Surgeon: Roseann Beltre MD Beam Saw Operator: Jessica BOGGS Anesthesia: General EBL: 50 mL Specimens Obtained: None Complications: None Drains: Hemovac and pain catheter Tourniquet time: 42 minutes Findings: No evidence of infection. Stable implants. Inflammation of the previous inset patella without loosening, malalignment or infection. Mild tibiofemoral instability was able to be resolved with change of polyethylene liner. Indications for Procedure: The patient is a 78-year-old woman who had left total knee arthroplasty by me, but is having continued knee pain. On examination she has tenderness at the patellofemoral joint. She has an inset type patella, and there is possibly some pain being caused by the remaining cartilage with this type of implant. In addition she reports mild tibiofemoral instability. We talked about nonoperative treatment and tried that, but she has persistent symptoms and she would like something done. I offered her revision surgery, including changing the type of resurfacing of the patella and possible tibial polyethylene revision. The patient and I discussed the risks, benefits and alternatives of surgery. We discussed the potential risks of infection, neurovascular injury, bleeding, blood clots, need for revision surgery, or other potential surgical or anesthetic complications. All of her questions about surgery were answered and she desires to proceed. Procedure in Detail: The patient was identified in the preoperative holding area. The correct left lower gravity was marked by me. The patient was taken to the operating room where general anesthesia was used. The patient was positioned supine on the operating table. Preoperative antibiotics were given intravenously. A timeout procedure was performed. A tourniquet was applied to the upper limb. The limb was prepared in sterile fashion with surgical prep solution. Sterile drapes were applied. An impervious stockinette and Ioban drape were used such that the skin was entirely covered. Tranexamic acid was given intravenously. The operating team wore the personal exhaust ventilated hoods. An Esmarch bandage was used to examine the limb. The tourniquet was inflated to 350 mmHg. The previous midline incision was used. Sharp dissection was used and Bovie electrocautery was used for hemostasis. A medial parapatellar arthrotomy was performed. There was benign synovial fluid. The patella was everted, and had quite a bit of scar tissue and synovitis area the patellar component was stable without loosening. It does appear that there is patellofemoral irritation and inflammation. I resected some of the surrounding synovium to better visualize the patella. I measured the thickness with a caliper. I recut the patella, cutting off the prior patellar polyethylene, and cutting the patella in a flat fashion rather than the inset used before. The caliper was used for measurements, to confirm 12 mm thickness throughout. Sizing was performed, and then an oval 3 pegged patella component was planned. Next the tibiofemoral articulation was examined. 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 I would not have left the knee this lax at the time of the initial surgery, so this is developed since the prior surgery. I removed the prior polyethylene and confirmed the sizing. I used additional trials, and went to a thicker polyethylene. She had 11 mm thickness removed, and I trialed 12 mm, 13 mm, 15 mm, and 18 mm. I was unable to insert the 18 mm trial due to the joint being too tight. The 15 mm was able to be inserted with good stability, and I used a constrained polyethylene trial due to the MCL deficiency. This achieved excellent range of motion and good varus valgus stability. The final 15 mm constrained polyethylene was chosen and opened on the back table. Betadine irrigation was used in the knee joint. The Tamanna InterPulse furnace loader was used and copious saline irrigation was used. The final 15 mm constrained polyethylene was now secured to the baseplate using the cardboard inserter device. The knee was reduced a final time. I then used the trial for the patella, and confirmed good patellar tracking with no contact of the remaining patellar bone with the femoral implant. The [place] InterPulse furnace loader was used on the patella, and then the patella was dried carefully with suction and laparotomy sponges. One package of rally HV bone cement was mixed with 1 g of vancomycin, and hand mixing was performed. The final polyethylene 32 mm oval patella was secured to the remaining patellar bone, and held with a bone clamp while the cement hardened. Excess cement was removed. The tourniquet was released. Additional tranexamic acid was given intravenously. Bovie electrocautery was used for hemostasis. After the cement hardened at 10 minutes the clamp was removed. Final patellar tracking and stability of the knee were confirmed. The knee was irrigated a final time and then closed in layers. A Hemovac drain was placed. A pain catheter was placed. 1 g of powdered vancomycin was placed into the knee joint and subcutaneous layer. The arthrotomy was closed with #1 PDS [id number] sutures. I then ran the arthrotomy with #1 StrataFix. My prosthetic assistant then closed the subcutaneous tissues with #2-0 PDS. She reapproximated the skin layer with #3-0 StrataFix Monocryl. Acticoat and a SP dressing were applied. Needle and sponge counts were correct. There were no apparent complications. ROSEANN BELTRE MD Nov 13, 2018 20:04
[2018-11-13 20:15] VITALS: BP 142/58
[2018-11-13] MEDS: ASPIRIN ENTERIC COATED 325 MG TABLET.DR. PO SCH (20:33)
[2018-11-13] MEDS: oxyCODONE/APAP 5/325 1 TAB TABLET PO PRN (20:33)
[2018-11-13 23:00] VITALS: BP 147/66
--- NOTE | 2018-11-13 23:33 | RAD ---
Exam: Left knee radiographs 2 views INDICATION: Postop TECHNIQUE: Frontal and lateral views of the left knee Comparisons: None FINDINGS: Left total knee arthroplasty which appears well seated and well aligned. There is a drain noted within the surgical bed. No acute fracture is seen. Small amount of air noted within the soft tissues of the operative bed. There is a small suprapatellar effusion. IMPRESSION: Left total knee arthroplasty without evidence of complication. Electronically signed by: Stephen Romero MD (11/13/2018 11:29 PM) [facility]
[2018-11-14] MEDS: ONDANSETRON PF 4 MG/2 ML VIAL. IV SCH ×4 (05:45→18:00)
[2018-11-14] MEDS: ONDANSETRON ODT 4 MG TAB.RAPDIS. PO SCH ×4 (05:45→18:00)
[2018-11-14] MEDS ORDERED: MAGNESIUM HYDROXIDE 2,400 MG/30 ML ORAL.SUSP. PO PRN (06:00)
[2018-11-14] MEDS: KETOROLAC 30MG VIAL 30 MG, BUPIVACAINE MPF 0.25% 20 ML, EPINEPHrine 0.5 MG in TOTAL VOL... INT ART SCH (06:55)
[2018-11-14 07:14] VITALS: BP 147/56
--- NOTE | 2018-11-14 07:38 | PDOC ---
ORTHO PROGRESS NOTES Subjective Patient getting out of bed on her own and has no major complaints. Post-op Day: 1 Procedure Left Total Knee revision with poly exchange and patellar resurfacing Vitals Vital Signs Date Time Temp Pulse Resp B/P (MAP) Pulse Ox O2 Delivery O2 Flow Rate FiO2 11/14/18 07:14 99.0 88 20 147/56 (86) 95 Room Air 99.0 11/13/18 23:00 3.0 Notes Awake and alert and stated she will be ready to go home tomorrow. Assessment and Plan POD # 1 S/P Left knee rev with poly exchange and patella resurfacing motor and sensory intact distally dressing dry and intact drain and pain catheter in place PT today Discharge planning for tomorrow MICHELLE VASQUEZ APRN Nov 14, 2018 07:38
[2018-11-14] MEDS: SENNOSIDES/DOCUSATE 8.6/50MG TABLET. PO SCH (09:33)
[2018-11-14] MEDS: MULTIVITAMIN with MINERAL TABLET. PO SCH (09:33)
[2018-11-14] MEDS: MELOXICAM 7.5 MG TABLET PO SCH (09:33)
[2018-11-14] MEDS: oxyCODONE/APAP 5/325 1 TAB TABLET PO PRN ×3 (09:33→21:12)
[2018-11-14] MEDS: ASPIRIN ENTERIC COATED 325 MG TABLET.DR. PO SCH ×2 (09:34→20:48)
[2018-11-14 10:01] LABS: HEMATOCRIT 38.4 % (36.0-47.0); HEMOGLOBIN 13.1 g/dL (12.0-15.5); RED BLOOD COUNT 4.04 x10^6/uL (3.50-5.40); RED CELL DISTRIBUTION WIDTH 12.5 % (11.5-14.5); WHITE BLOOD COUNT 12.7 x10^3/uL (4.0-11.0)
[2018-11-14] MEDS ORDERED: ONDANSETRON PF 4 MG/2 ML VIAL. IV PRN (12:00)
[2018-11-14] MEDS ORDERED: ONDANSETRON ODT 4 MG TAB.RAPDIS. PO PRN (12:00)
[2018-11-14] MEDS ORDERED: BISACODYL 10 MG SUPP.RECT. PR PRN (16:00)
--- NOTE | 2018-11-14 17:25 | PDOC ---
PROGRESS NOTES Subjective Subjective Pain controlled. No complaints. Objective Vital Signs Vital Signs Date Time Temp Pulse Resp B/P (MAP) Pulse Ox O2 Delivery O2 Flow Rate FiO2 11/14/18 13:09 Room Air 11/14/18 07:14 99.0 88 20 147/56 (86) 95 99.0 11/13/18 23:00 3.0 Physical Exam Dressing intact and dry. Hemovac and pain catheter in place. Thigh and calf s oft. Good active range of motion of foot including dorsiflexion and plantar flexion. Cap refill at toes intact. No signs of compartment syndrome, DVT or neurovascular injury. Labs Laboratory Tests Test 11/14/18 09:00 White Blood Count 12.7 x10^3/uL (4.0-11.0) Red Blood Count 4.04 x10^6/uL (3.50-5.40) Hemoglobin 13.1 g/dL (12.0-15.5) Hematocrit 38.4 % (36.0-47.0) Mean Corpuscular Volume 95 fL (79-100) Mean Corpuscular Hemoglobin 33 pg (25-35) Mean Corpuscular Hemoglobin Concent 34 g/dL (31-37) Red Cell Distribution Width 12.5 % (11.5-14.5) Platelet Count 250 x10^3/uL (140-400) Prothrombin Time 13.0 SEC (11.7-14.0) Prothromb Time International Ratio 1.0 (0.8-1.1) Laboratory Tests Test 11/14/18 09:00 White Blood Count 12.7 x10^3/uL (4.0-11.0) Red Blood Count 4.04 x10^6/uL (3.50-5.40) Hemoglobin 13.1 g/dL (12.0-15.5) Hematocrit 38.4 % (36.0-47.0) Mean Corpuscular Volume 95 fL (79-100) Mean Corpuscular Hemoglobin 33 pg (25-35) Mean Corpuscular Hemoglobin Concent 34 g/dL (31-37) Red Cell Distribution Width 12.5 % (11.5-14.5) Platelet Count 250 x10^3/uL (140-400) Prothrombin Time 13.0 SEC (11.7-14.0) Prothromb Time International Ratio 1.0 (0.8-1.1) Imaging Postop X-rays reviewed by me. Satisfactory patella revision and poly revision without apparent complications. Assessment Assessment POD 1 TKA revision of patella and revision of tibial polyethylene Plan Plan of Care Continue POC ROSEANN SAMANO MD Nov 14, 2018 17:25
[2018-11-14 18:40] VITALS: BP 141/62
[2018-11-15 06:00] VITALS: BP 130/71
[2018-11-15] MEDS: CHOLECALCIFEROL (VITAMIN D3) 5,000 UNIT CAPSULE PO SCH (08:45)
[2018-11-15] MEDS: MULTIVITAMIN with MINERAL TABLET. PO SCH (08:45)
[2018-11-15] MEDS: SENNOSIDES/DOCUSATE 8.6/50MG TABLET. PO SCH (08:45)
[2018-11-15] MEDS: MELOXICAM 7.5 MG TABLET PO SCH (08:45)
[2018-11-15] MEDS: ASPIRIN ENTERIC COATED 325 MG TABLET.DR. PO SCH ×2 (08:46→22:22)
[2018-11-15] MEDS: oxyCODONE/APAP 5/325 1 TAB TABLET PO PRN ×3 (08:48→19:30)
[2018-11-15 09:39] LABS: HEMATOCRIT 37.7 % (36.0-47.0); HEMOGLOBIN 12.9 g/dL (12.0-15.5)
[2018-11-15 09:48] LABS: PROTHROMBIN TIME PATIENT 12.6 SEC (11.7-14.0)
--- NOTE | 2018-11-15 12:55 | PDOC ---
PROGRESS NOTES Subjective Subjective Quite a bit more pain today. Has taken oral medications but pain still preventing motion, and pain at 8/10 Objective Vital Signs Vital Signs Date Time Temp Pulse Resp B/P (MAP) Pulse Ox O2 Delivery O2 Flow Rate FiO2 11/15/18 08:48 Room Air 11/15/18 06:00 98.2 71 20 130/71 (90) 95 98.2 11/13/18 23:00 3.0 Physical Exam I don't see evidence of effusion, infection or other reason for described pain. SP dressing intact. Pain catheter and drain have been removed. Calf soft and nontender. Good AROM of ankle. Minimal erythema/warmth. Not yet safely ambulating with walker. Requires PT or nursing assistance, and gait belt for safe transition from chair or bed to walker. Labs Laboratory Tests Test 11/14/18 09:00 11/15/18 09:15 White Blood Count 12.7 x10^3/uL (4.0-11.0) Red Blood Count 4.04 x10^6/uL (3.50-5.40) Hemoglobin 13.1 g/dL (12.0-15.5) 12.9 g/dL (12.0-15.5) Hematocrit 38.4 % (36.0-47.0) 37.7 % (36.0-47.0) Mean Corpuscular Volume 95 fL (79-100) Mean Corpuscular Hemoglobin 33 pg (25-35) Mean Corpuscular Hemoglobin Concent 34 g/dL (31-37) 34 g/dL (31-37) Red Cell Distribution Width 12.5 % (11.5-14.5) Platelet Count 250 x10^3/uL (140-400) Prothrombin Time 13.0 SEC (11.7-14.0) 12.6 SEC (11.7-14.0) Prothromb Time International Ratio 1.0 (0.8-1.1) 1.0 (0.8-1.1) Laboratory Tests Test 11/15/18 09:15 Hemoglobin 12.9 g/dL (12.0-15.5) Hematocrit 37.7 % (36.0-47.0) Mean Corpuscular Hemoglobin Concent 34 g/dL (31-37) Prothrombin Time 12.6 SEC (11.7-14.0) Prothromb Time International Ratio 1.0 (0.8-1.1) Assessment Assessment POD #2 TKA with pain and elevated WBC but no fever. Will add additional IV pain meds, and watch further for signs of infection. Plan Plan of Care Check CBC in AM IV pain meds today. Reexamine tomorrow for possible discharge ROSEANN SAMANO MD Nov 15, 2018 12:55
--- NOTE | 2018-11-15 15:10 | NUR ---
Pt c/o pain states "10" on pain scale. Fentanyl IV given. Cont. monitor.
[2018-11-15 18:15] VITALS: BP 148/73
[2018-11-16] MEDS: oxyCODONE/APAP 5/325 1 TAB TABLET PO PRN ×3 (00:23→15:50)
[2018-11-16 06:00] VITALS: BP 152/66
[2018-11-16] MEDS: MELOXICAM 7.5 MG TABLET PO SCH (07:59)
[2018-11-16] MEDS: MULTIVITAMIN with MINERAL TABLET. PO SCH (08:00)
[2018-11-16] MEDS: SENNOSIDES/DOCUSATE 8.6/50MG TABLET. PO SCH (08:00)
[2018-11-16] MEDS: ASPIRIN ENTERIC COATED 325 MG TABLET.DR. PO SCH (08:00)
[2018-11-16] MEDS: CHOLECALCIFEROL (VITAMIN D3) 5,000 UNIT CAPSULE PO SCH (08:00)
[2018-11-16 08:19] LABS: BASO # 0.1 x10^3/uL (0.0-0.2); BASO % 1 % (0-3); EOS # 0.9 x10^3/uL (0.0-0.7); EOS % 9 % (0-3); HEMATOCRIT 36.4 % (36.0-47.0); HEMOGLOBIN 12.7 g/dL (12.0-15.5); LYMPH # 1.7 x10^3/uL (1.0-4.8); LYMPH % 16 % (24-48); MEAN CORPUSCULAR HEMOGLOBIN 33 pg (25-35); MEAN CORPUSCULAR HGB CONC 35 g/dL (31-37); MEAN CORPUSCULAR VOLUME 94 fL (79-100); MONO # 0.9 x10^3/uL (0.0-1.1); MONO % 9 % (0-9); NEUT # 6.7 x10^3/uL (1.8-7.7); NEUT % 65 % (31-73); PLATELET COUNT 202 x10^3/uL (140-400); RED BLOOD COUNT 3.87 x10^6/uL (3.50-5.40); RED CELL DISTRIBUTION WIDTH 12.8 % (11.5-14.5); WHITE BLOOD COUNT 10.3 x10^3/uL (4.0-11.0)
[2018-11-16 08:30] LABS: PROTHROMBIN TIME PATIENT 13.3 SEC (11.7-14.0)
--- NOTE | 2018-11-16 16:12 | PDOC ---
PROGRESS NOTES Subjective Subjective No complaints. Planning on discharge today to home. Objective Vital Signs Vital Signs Date Time Temp Pulse Resp B/P (MAP) Pulse Ox O2 Delivery O2 Flow Rate FiO2 11/16/18 15:50 Room Air 11/16/18 09:25 95 11/16/18 06:00 99.0 84 18 152/66 (94) 99.0 11/15/18 20:14 3.0 Physical Exam SP intact and dry. Good AROM ankle. Calf soft and nontender. Minimal warmth or erythema. Labs Laboratory Tests Test 11/15/18 09:15 11/16/18 07:17 Hemoglobin 12.9 g/dL (12.0-15.5) 12.7 g/dL (12.0-15.5) Hematocrit 37.7 % (36.0-47.0) 36.4 % (36.0-47.0) Mean Corpuscular Hemoglobin Concent 34 g/dL (31-37) 35 g/dL (31-37) Prothrombin Time 12.6 SEC (11.7-14.0) 13.3 SEC (11.7-14.0) Prothromb Time International Ratio 1.0 (0.8-1.1) 1.0 (0.8-1.1) White Blood Count 10.3 x10^3/uL (4.0-11.0) Red Blood Count 3.87 x10^6/uL (3.50-5.40) Mean Corpuscular Volume 94 fL (79-100) Mean Corpuscular Hemoglobin 33 pg (25-35) Red Cell Distribution Width 12.8 % (11.5-14.5) Platelet Count 202 x10^3/uL (140-400) Neutrophils (%) (Auto) 65 % (31-73) Lymphocytes (%) (Auto) 16 % (24-48) Monocytes (%) (Auto) 9 % (0-9) Eosinophils (%) (Auto) 9 % (0-3) Basophils (%) (Auto) 1 % (0-3) Neutrophils # (Auto) 6.7 x10^3/uL (1.8-7.7) Lymphocytes # (Auto) 1.7 x10^3/uL (1.0-4.8) Monocytes # (Auto) 0.9 x10^3/uL (0.0-1.1) Eosinophils # (Auto) 0.9 x10^3/uL (0.0-0.7) Basophils # (Auto) 0.1 x10^3/uL (0.0-0.2) Erythrocyte Sedimentation Rate 37 (0-25) C-Reactive Protein, Quantitative 47.6 mg/L (0-3.3) Laboratory Tests Test 11/16/18 07:17 White Blood Count 10.3 x10^3/uL (4.0-11.0) Red Blood Count 3.87 x10^6/uL (3.50-5.40) Hemoglobin 12.7 g/dL (12.0-15.5) Hematocrit 36.4 % (36.0-47.0) Mean Corpuscular Volume 94 fL (79-100) Mean Corpuscular Hemoglobin 33 pg (25-35) Mean Corpuscular Hemoglobin Concent 35 g/dL (31-37) Red Cell Distribution Width 12.8 % (11.5-14.5) Platelet Count 202 x10^3/uL (140-400) Neutrophils (%) (Auto) 65 % (31-73) Lymphocytes (%) (Auto) 16 % (24-48) Monocytes (%) (Auto) 9 % (0-9) Eosinophils (%) (Auto) 9 % (0-3) Basophils (%) (Auto) 1 % (0-3) Neutrophils # (Auto) 6.7 x10^3/uL (1.8-7.7) Lymphocytes # (Auto) 1.7 x10^3/uL (1.0-4.8) Monocytes # (Auto) 0.9 x10^3/uL (0.0-1.1) Eosinophils # (Auto) 0.9 x10^3/uL (0.0-0.7) Basophils # (Auto) 0.1 x10^3/uL (0.0-0.2) Erythrocyte Sedimentation Rate 37 (0-25) Prothrombin Time 13.3 SEC (11.7-14.0) Prothromb Time International Ratio 1.0 (0.8-1.1) C-Reactive Protein, Quantitative 47.6 mg/L (0-3.3) Assessment Assessment POD #3 TKA revision. WBC back to normal. ESR and CRP in expected range for postop TKA. Plan Plan of Care Discharge planning for today. Continue PT and DVT prophylaxis. F/U 10-14 days in office.POD# ROSEANN SAMANO MD Nov 16, 2018 16:12
[2018-11-16] MEDS ORDERED: OXYC1TAB15 PO (16:15)
--- NOTE | 2018-11-16 16:18 | SNU/HH DC ---
DISCHARGE WITH HOME HEALTH DISCHARGE INFORMATION: Discharge Date: Nov 16, 2018 Final Diagnosis: painful left total knee replacement aftercare following (revision) total knee replacement Condition on Discharge: Stable CODE STATUS: Code Status: Full HOME HEALTH: Face to Face: I certify this patient is under my care and that I had a face to face encounter that meets the physician face to face encounter requirements with this patient on 11/16/18. RN For Eval/Treatment: No Physical Therapy For: Evalulation/Treatment Pt Meets Homebound Status: Unsteady balance w/ amb,, Limited distance walking POST DISCHARGE ORDERS: Activity Instructions for Disc: Activity as tolerated, Progressive ambulation Weight Bearing Status after Di: As tolerated Bathing Instructions: Shower-keep dressing dry, No Tub Bath until see DIET AFTER DISCHARGE: Regular Wound/Incision Care: Ice to area for comfort, Keep wound/cast CDI, Do not change dressing Other wound/incision instructi: DO NOT change SP dressing. It is to remain in place for two weeks. FOLLOW-UP: Follow Up With: Dr Beltre in 10-14 days [phone] Warfarin Follow UP: NOT NEEDED TREATMENT/EQUIPMENT ORDERS: Adaptive Equipment Issued: Walker CERTIFICATION STATEMENT: Certification Statement: Certification Statement: Based on the above finding, I certify that this patient is confined to the home and needs intermittent custodial care, physical therapy and/or speech therapy, or continues to need occupational therapy. This patient is under my care, and I have initiated the establishment of the plan of care. This patient will be followed by myself or a community physician who will periodically review the plan of care. Home Meds Active Scripts Oxycodone/Apap 5-325 (PERCOCET 5-325 MG TABLET ) 1 Each Tablet, 1-2 TAB PO PRN Q4HRS PRN for PAIN, #50 TAB Take 1-2 tablets by mouth every 4 hours as needed for pain. Prov:ROSEANN BELTRE MD 11/16/18 Reported Medications Meloxicam (MELOXICAM) 15 Mg Tablet, 1 TAB PO DAILY for inflammation, #30 TAB 2 Refills 11/05/18 Acetaminophen (PAIN RELIEF) 500 Mg Tablet, 200 MG PO PRN PRN for PAIN, TAB 07/04/18 ROSEANN BELTRE MD Nov 16, 2018 16:18
--- NOTE | 2018-11-16 16:20 | PDOC3 ---
Discharge Summary Visit Information Date of Admission: Nov 13, 2018 Date of Discharge: Nov 16, 2018 Final Diagnosis painful left total knee arthroplasty Brief Hospital Course Allergies Allergies Coded Allergies Type Severity Reaction Last Updated Verified Sulfa (Sulfonamide Antibiotics) Allergy Intermediate rash 11/13/18 Yes strawberry Allergy Intermediate Hives 11/13/18 Yes Vital Signs Vital Signs Date Time Temp Pulse Resp B/P (MAP) Pulse Ox O2 Delivery O2 Flow Rate FiO2 11/16/18 15:50 Room Air 11/16/18 09:25 95 11/16/18 06:00 99.0 84 18 152/66 (94) 99.0 11/15/18 20:14 3.0 Lab Results Laboratory Tests Test 11/15/18 09:15 11/16/18 07:17 Hemoglobin 12.9 g/dL (12.0-15.5) 12.7 g/dL (12.0-15.5) Hematocrit 37.7 % (36.0-47.0) 36.4 % (36.0-47.0) Mean Corpuscular Hemoglobin Concent 34 g/dL (31-37) 35 g/dL (31-37) Prothrombin Time 12.6 SEC (11.7-14.0) 13.3 SEC (11.7-14.0) Prothromb Time International Ratio 1.0 (0.8-1.1) 1.0 (0.8-1.1) White Blood Count 10.3 x10^3/uL (4.0-11.0) Red Blood Count 3.87 x10^6/uL (3.50-5.40) Mean Corpuscular Volume 94 fL (79-100) Mean Corpuscular Hemoglobin 33 pg (25-35) Red Cell Distribution Width 12.8 % (11.5-14.5) Platelet Count 202 x10^3/uL (140-400) Neutrophils (%) (Auto) 65 % (31-73) Lymphocytes (%) (Auto) 16 % (24-48) Monocytes (%) (Auto) 9 % (0-9) Eosinophils (%) (Auto) 9 % (0-3) Basophils (%) (Auto) 1 % (0-3) Neutrophils # (Auto) 6.7 x10^3/uL (1.8-7.7) Lymphocytes # (Auto) 1.7 x10^3/uL (1.0-4.8) Monocytes # (Auto) 0.9 x10^3/uL (0.0-1.1) Eosinophils # (Auto) 0.9 x10^3/uL (0.0-0.7) Basophils # (Auto) 0.1 x10^3/uL (0.0-0.2) Erythrocyte Sedimentation Rate 37 (0-25) C-Reactive Protein, Quantitative 47.6 mg/L (0-3.3) Laboratory Tests Test 11/16/18 07:17 White Blood Count 10.3 x10^3/uL (4.0-11.0) Red Blood Count 3.87 x10^6/uL (3.50-5.40) Hemoglobin 12.7 g/dL (12.0-15.5) Hematocrit 36.4 % (36.0-47.0) Mean Corpuscular Volume 94 fL (79-100) Mean Corpuscular Hemoglobin 33 pg (25-35) Mean Corpuscular Hemoglobin Concent 35 g/dL (31-37) Red Cell Distribution Width 12.8 % (11.5-14.5) Platelet Count 202 x10^3/uL (140-400) Neutrophils (%) (Auto) 65 % (31-73) Lymphocytes (%) (Auto) 16 % (24-48) Monocytes (%) (Auto) 9 % (0-9) Eosinophils (%) (Auto) 9 % (0-3) Basophils (%) (Auto) 1 % (0-3) Neutrophils # (Auto) 6.7 x10^3/uL (1.8-7.7) Lymphocytes # (Auto) 1.7 x10^3/uL (1.0-4.8) Monocytes # (Auto) 0.9 x10^3/uL (0.0-1.1) Eosinophils # (Auto) 0.9 x10^3/uL (0.0-0.7) Basophils # (Auto) 0.1 x10^3/uL (0.0-0.2) Erythrocyte Sedimentation Rate 37 (0-25) Prothrombin Time 13.3 SEC (11.7-14.0) Prothromb Time International Ratio 1.0 (0.8-1.1) C-Reactive Protein, Quantitative 47.6 mg/L (0-3.3) Brief Hospital Course 78 year old who presented for elective left total knee arthroplasty revision. The patient underwent total knee arthroplasty revision under general anesthesia the day of admission. Perioperative antibiotics and DVT prophylaxis were used. Postoperatively physical therapy and case management were consulted. The patient progressed and is stable for discharge. Discharge Information Condition at Discharge: Stable Follow Up: Weeks Disposition/Orders: D/C to Home w/ HH Scheduled Meloxicam (Meloxicam), 1 TAB PO DAILY, (Reported) Scheduled PRN Acetaminophen (Pain Relief), 200 MG PO PRN PRN for PAIN, (Reported) Oxycodone/Apap 5-325 (Percocet 5-325 Mg Tablet ), 1-2 TAB PO PRN Q4HRS PRN for PAIN Patient Instructions Patient Instructions Continue to weight bearing as tolerated with walker. Keep SP dressing intact and dry. Cut off SP "tail" and throw away battery pack on the 7th day after surgery. Tape down SP tail Leave SP dressing intact otherwise. Follow up with Dr. Beltre's office in 10-14 days. Call for appointment unless already scheduled. Continue enteric coated aspirin 325 mg by mouth twice a day for 30 days to prevent blood clots. ROSEANN BELTRE MD Nov 16, 2018 16:20
--- NOTE | 2018-11-16 18:12 | NUR ---
Patient left the facility by wheelchair around 1800 with her sister, nephew, and niece. SP dressing education was completed by this nurse without any concerns noted by the patient or her family. Discharge education was completed by this nurse, therapy, and the patients doctor. No IV access present upon discharge. Patient and family stated understanding of all discharge education.
== END 2018-11-16 18:10 | disposition home health service (06) | DRG 489 ==
LOC: OPSVCIP 11-13 12:30 → SURHIP 11-13 18:45 → 4 SOUTHEST 11-13 19:21
PROVIDERS: ADMIT Orthopaedic Surgery; ATTEND Orthopaedic Surgery
PROC: 0SUW09Z Supplement Left Knee Joint, Tibial Surface with Liner, Open Approach (ICD-10-PCS; 2018-11-13)
PROC: 0SPD09Z Removal of Liner from Left Knee Joint, Open Approach (ICD-10-PCS; 2018-11-13)
PROC: 0SUD09C Supplement Left Knee Joint with Liner, Patellar Surface, Open Approach (ICD-10-PCS; 2018-11-13)
PROC: 0SPD09Z Removal of Liner from Left Knee Joint, Open Approach (ICD-10-PCS; principal; 2018-11-13 15:00)
DX: T84.84XA Pain due to internal orthopedic prosthetic devices, implants and grafts, initial encounter (principal); Z96.652 Presence of left artificial knee joint; M65.9 Synovitis and tenosynovitis, unspecified; Y83.1 Surgical operation with implant of artificial internal device as the cause of abnormal reaction of the patient, or of later complication, without mention of misadventure at the time of the procedure; Y92.89 Other specified places as the place of occurrence of the external cause; Z83.3 Family history of diabetes mellitus; Z82.49 Family history of ischemic heart disease and other diseases of the circulatory system; Z82.3 Family history of stroke; Z88.2 Allergy status to sulfonamides
CPT/HCPCS: 36415; 73560; 85014; 85018; 85025; 85027; 85610; 85651; 86140; 86850; 86900; 86901; A7015; C1713; C1776; J0171; J0330; J0696; J1100; J1885; J2001; J2270; J2405; J2704; J2710; J2795; J3010; J3260; J3370; J3490; J7120; 97116; 97150; 97530; 97535; A4461; C1769; G0378

== ENCOUNTER 2018-11-22 15:03 | Inpatient (IN) | payer OTHER ==
[~2018-11-22] VITALS: Ht 154.9 cm; Wt 54.0 kg
[~2018-11-22 15:03] MED LIST changes: -HYDROmorphone 2 MG/ML VIAL IV PRN; -IV RINGERS,LACTATED 1000ML 1,000 ML IV SCH; -MORPHINE SULFATE 2 MG/ML VIAL. IV PRN; -MORPHINE SULFATE 5 MG, KETOROLAC 30MG VIAL 30 MG, ROPIVacaine 0.5% PF 60 ML, EPINEPHrin... INT ART ONE; -ONDANSETRON PF 4 MG/2 ML VIAL. IV PRN; +OXYC1TAB15 PO; -PROCHLORPERAZINE 10 MG/2 ML VIAL. IV PRN; -fentaNYL PF VIAL 100 MCG/2 ML VIAL IV PRN
[2018-11-22] MEDS ORDERED: IV NORMAL SALINE 1000ML BAG 1,000 ML IV SCH (15:44)
[2018-11-22] MEDS ORDERED: ONDANSETRON PF 4 MG/2 ML VIAL. IV ONE ×2 (15:45→20:00)
[2018-11-22] MEDS ORDERED: LIDO:MAALOX 1:1 20 ML SINGLE DOSE. SWSW ONE (15:45)
--- NOTE | 2018-11-22 16:07 | PHYS DOC ---
Past Medical History Past Medical History: Arthritis Additional Past Medical Histor: ( (JEAN MARIE LEBRON MD) Past Surgical History: Other Additional Past Surgical Histo: right shoulder surgery, left knee (JEAN MARIE LEBRON MD) Alcohol Use: Occasionally Drug Use: None (JEAN MARIE LEBRON MD) Adult General Chief Complaint Chief Complaint: ABDOMINAL PAIN HPI HPI Patient is an 78-year-old female, who presents to the emergency department for evaluation. 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 She has been taking oxycodone every 4 hours, and states that since the surgery she has been having some gradually worsening epigastric pain, described as a burning. She has had several episodes of vomiting. She has not had any diarrhea, and reports that she has been having regular bowel movements throughout this time, including several normal bowel movements today. She denies any bloody emesis or stools, chest pain or shortness of breath. She is taking aspirin for coagulation prophylaxis post procedure, and although she has some swelling in her left leg, she does not have any soft tissu e pain or pain greater than expected postoperatively. There are no alleviating, or exacerbating factors to his symptoms. (JEAN MARIE LEBRON MD) Review of Systems Review of Systems Constitutional: Denies fever or chills [] Eyes: Denies change in visual acuity, redness, or eye pain [] HENT: Denies nasal congestion or sore throat [] Respiratory: Denies cough or shortness of breath [] Cardiovascular: The patient denies any shortness of breath, chest pain, palpitations, or orthopnea [] GI: No additional information not addressed in HPI [] : Denies dysuria or hematuria [] Musculoskeletal: Denies back pain or joint pain [] Integument: Denies rash or skin lesions [] Neurologic: Denies headache, focal weakness or sensory changes [] Endocrine: Denies polyuria or polydipsia [] All other systems were reviewed and found to be within normal limits, except as documented in this note. (JEAN MARIE LEBRON MD) Current Medications Current Medications Current Medications Medications (Trade) Dose Ordered Sig/Jerod Start Time Stop Time Status Last Admin Dose Admin Ciprofloxacin/ Dextrose 200 ml @ 200 mls/hr 1X ONCE 11/22/18 20:00 11/22/18 20:59 UNV Fentanyl Citrate (Fentanyl 2ml Vial) 50 mcg 1X ONCE 11/22/18 20:00 11/22/18 20:01 Info (CONTRAST GIVEN -- Rx MONITORING) 1 each PRN DAILY PRN 11/22/18 17:00 11/24/18 16:59 Iohexol (Omnipaque 300 Mg/ml) 75 ml 1X ONCE 11/22/18 17:00 11/22/18 17:01 DC Metronidazole 100 ml @ 100 mls/hr Q8HRS 11/22/18 22:00 UNV Multi-Ingredient Mouthwash/Gargle (Gi Cocktail) 20 ml 1X ONCE 11/22/18 15:45 11/22/18 15:55 DC 11/22/18 16:40 20 ML Ondansetron HCl (Zofran) 4 mg 1X ONCE 11/22/18 20:00 11/22/18 20:01 Sodium Chloride 1,000 ml @ 100 mls/hr Q10H 11/22/18 15:44 11/23/18 01:43 11/22/18 16:40 100 MLS/HR (JAIR SCOTT Jr. DO) Allergies Allergies Allergies Coded Allergies Type Severity Reaction Last Updated Verified Sulfa (Sulfonamide Antibiotics) Allergy Intermediate rash 11/13/18 Yes strawberry Allergy Intermediate Hives 11/13/18 Yes (JAIR SCOTT Jr. DO) Physical Exam Physical Exam PHYSICAL EXAM: CONSTITUTIONAL: Well developed, well nourished HEAD: normocephalic, atraumatic EENT: PERRL, EOMI. Conjunctivae normal color, sclerae non-icteric; moist mucous membranes. NECK: Supple, non-tender; no meningismus. LUNGS: Lungs CTA, breathing even and unlabored. Normal air movement. HEART: Regular rate and rhythm, no murmur CHEST: No deformity; non-tender ABDOMEN: The abdomen is soft, there is diffuse tenderness to palpation to the entire upper abdomen, without rebound or guarding, the remainder the abdomen is relatively soft and non-tender, no masses or bruits. EXTREM: Normal ROM; no deformity, no calf tenderness. Normal pulses palpable in all extremities. There is no pedal edema. SKIN: No rash; no diaphoresis NEURO: Alert; normal speech and cognition; CN's grossly intact; strength grossly intact without focal deficit. BACK: No CVA TTP. (JEAN MARIE LEBRON MD) Current Patient Data Vital Signs Vital Signs Date Time Temp Pulse Resp B/P (MAP) Pulse Ox O2 Delivery O2 Flow Rate FiO2 11/22/18 18:43 86 193/74 (113) 93 Room Air 11/22/18 15:39 99.0 20 99.0 (JAIR SCOTT Jr. DO) Lab Values Laboratory Tests Test 11/22/18 16:19 11/22/18 18:00 White Blood Count 10.1 x10^3/uL (4.0-11.0) Red Blood Count 3.88 x10^6/uL (3.50-5.40) Hemoglobin 12.6 g/dL (12.0-15.5) Hematocrit 36.1 % (36.0-47.0) Mean Corpuscular Volume 93 fL (79-100) Mean Corpuscular Hemoglobin 32 pg (25-35) Mean Corpuscular Hemoglobin Concent 35 g/dL (31-37) Red Cell Distribution Width 12.3 % (11.5-14.5) Platelet Count 333 x10^3/uL (140-400) Neutrophils (%) (Auto) 81 % (31-73) H Lymphocytes (%) (Auto) 12 % (24-48) L Monocytes (%) (Auto) 6 % (0-9) Eosinophils (%) (Auto) 0 % (0-3) Basophils (%) (Auto) 1 % (0-3) Neutrophils # (Auto) 8.1 x10^3/uL (1.8-7.7) H Lymphocytes # (Auto) 1.2 x10^3/uL (1.0-4.8) Monocytes # (Auto) 0.6 x10^3/uL (0.0-1.1) Eosinophils # (Auto) 0.0 x10^3/uL (0.0-0.7) Basophils # (Auto) 0.1 x10^3/uL (0.0-0.2) Prothrombin Time 13.6 SEC (11.7-14.0) Prothrombin Time INR 1.1 (0.8-1.1) Sodium Level 140 mmol/L (136-145) Potassium Level 4.0 mmol/L (3.5-5.1) Chloride Level 103 mmol/L (98-107) Carbon Dioxide Level 27 mmol/L (21-32) Anion Gap 10 (6-14) Blood Urea Nitrogen 17 mg/dL (7-20) Creatinine 0.7 mg/dL (0.6-1.0) Estimated GFR (Cockcroft-Gault) 80.5 BUN/Creatinine Ratio 24 (6-20) H Glucose Level 167 mg/dL (70-99) H Calcium Level 9.5 mg/dL (8.5-10.1) Total Bilirubin 0.7 mg/dL (0.2-1.0) Aspartate Amino Transferase (AST) 24 U/L (15-37) Alanine Aminotransferase (ALT) 23 U/L (14-59) Alkaline Phosphatase 96 U/L (46-116) Troponin I Quantitative < 0.017 ng/mL (0.000-0.055) Total Protein 7.5 g/dL (6.4-8.2) Albumin 3.3 g/dL (3.4-5.0) L Albumin/Globulin Ratio 0.8 (1.0-1.7) L Lipase 83 U/L (73-393) Urine Collection Type Clean catch Urine Color Yellow Urine Clarity Clear Urine pH 8.0 Urine Specific [place] >=1.030 Urine Protein Negative mg/dL (NEG-TRACE) Urine Glucose (UA) Negative mg/dL (NEG) Urine Ketones (Stick) Trace mg/dL (NEG) Urine Blood Negative (NEG) Urine Nitrite Negative (NEG) Urine Bilirubin Negative (NEG) Urine Urobilinogen Dipstick 1.0 mg/dL (0.2 mg/dL) Urine Leukocyte Esterase Negative (NEG) Urine RBC 0 /HPF (0-2) Urine WBC 1-4 /HPF (0-4) Urine Squamous Epithelial Cells Few /LPF Urine Bacteria Few /HPF (0-FEW) Laboratory Tests 11/22/18 16:19 Laboratory Tests 11/22/18 16:19 (JAIR SCOTT Jr. DO) Lab Values Laboratory Tests Test 11/22/18 16:19 White Blood Count 10.1 x10^3/uL (4.0-11.0) Red Blood Count 3.88 x10^6/uL (3.50-5.40) Hemoglobin 12.6 g/dL (12.0-15.5) Hematocrit 36.1 % (36.0-47.0) Mean Corpuscular Volume 93 fL (79-100) Mean Corpuscular Hemoglobin 32 pg (25-35) Mean Corpuscular Hemoglobin Concent 35 g/dL (31-37) Red Cell Distribution Width 12.3 % (11.5-14.5) Platelet Count 333 x10^3/uL (140-400) Neutrophils (%) (Auto) 81 % (31-73) H Lymphocytes (%) (Auto) 12 % (24-48) L Monocytes (%) (Auto) 6 % (0-9) Eosinophils (%) (Auto) 0 % (0-3) Basophils (%) (Auto) 1 % (0-3) Neutrophils # (Auto) 8.1 x10^3/uL (1.8-7.7) H Lymphocytes # (Auto) 1.2 x10^3/uL (1.0-4.8) Monocytes # (Auto) 0.6 x10^3/uL (0.0-1.1) Eosinophils # (Auto) 0.0 x10^3/uL (0.0-0.7) Basophils # (Auto) 0.1 x10^3/uL (0.0-0.2) Prothrombin Time 13.6 SEC (11.7-14.0) Prothrombin Time INR 1.1 (0.8-1.1) Sodium Level 140 mmol/L (136-145) Potassium Level 4.0 mmol/L (3.5-5.1) Chloride Level 103 mmol/L (98-107) Carbon Dioxide Level 27 mmol/L (21-32) Anion Gap 10 (6-14) Blood Urea Nitrogen 17 mg/dL (7-20) Creatinine 0.7 mg/dL (0.6-1.0) Estimated GFR (Cockcroft-Gault) 80.5 BUN/Creatinine Ratio 24 (6-20) H Glucose Level 167 mg/dL (70-99) H Calcium Level 9.5 mg/dL (8.5-10.1) Total Bilirubin 0.7 mg/dL (0.2-1.0) Aspartate Amino Transferase (AST) 24 U/L (15-37) Alanine Aminotransferase (ALT) 23 U/L (14-59) Alkaline Phosphatase 96 U/L (46-116) Troponin I Quantitative < 0.017 ng/mL (0.000-0.055) Total Protein 7.5 g/dL (6.4-8.2) Albumin 3.3 g/dL (3.4-5.0) L Albumin/Globulin Ratio 0.8 (1.0-1.7) L Lipase 83 U/L (73-393) Laboratory Tests 11/22/18 16:19 Laboratory Tests 11/22/18 16:19 (JEAN MARIE LEBRON MD) EKG EKG []Normal sinus rhythm at a rate of 87 beats for minute, normal axis, normal intervals, nonspecific ST/T changes. (JEAN MARIE LEBRON MD) Radiology/Procedures Radiology/Procedures [] (JEAN MARIE LEBRON MD) Impressions: PROCEDURE: CT ABD PELV W/ IV CONTRST ONLY Exam: CT abdomen and pelvis with contrast INDICATION: Abdominal pain, vomiting TECHNIQUE: Sequential axial images through the abdomen and pelvis obtained following the administration of 75 mL of Omni 300 IV contrast. Sagittal and coronal reformatted images were reconstructed from the axial data and reviewed. Comparisons: None FINDINGS: Heart size is normal. No pericardial effusion. Bandlike opacity at the lung bases likely representing atelectasis. No pleural effusion. Liver, spleen, pancreas, and adrenals are unremarkable. Kidneys demonstrate symmetric enhancement. No perinephric inflammation or hydronephrosis. No renal or ureteral calculi are identified. Bilateral peripelvic cysts are noted. The graft bladder is incompletely distended and not well evaluated. Uterus is not enlarged. No abnormal adnexal mass. Extensive diverticulosis is noted within the descending and sigmoid colon. Very mild stranding noted at the descending colon/sigmoid colon junction. The appendix is normal. No free intra-abdominal air or fluid. No obstruction. Abdominal aorta has a normal course and caliber. Abdominal vasculature is patent. No enlarged intra-abdominal lymph nodes are identified. No suspicious osseous lesion or acute fracture. IMPRESSION: Very mild fat stranding at the descending/sigmoid colon junction in the area of diverticulosis which may represent a very mild diverticulitis. Exposure: One or more of the following in the visualized dose reduction techniques were utilized for this examination: 1. Automated exposure control 2. Adjustment of the MA and/or KV according to patient size 3. Use of iterative of reconstructive technique Electronically signed by: Stephen Romero MD (11/22/2018 5:43 PM) [facility] (JAIR SCOTT Jr., DO) Course & Med Decision Making Course & Med Decision Making Pertinent Labs and Imaging studies reviewed. (See chart for details) []5:00 PM: Patient condition remains stable. Care will be turned over to Dr. Scott at shift change, pending urinalysis, CT, and final disposition. Report given. (JEAN MARIE LEBRON MD) Dragon Disclaimer Dragon Disclaimer This electronic medical record was generated, in whole or in part, using a voice recognition dictation system. (JEAN MARIE LEBRON MD) Departure Departure Impression: Primary Impression: Diverticulitis large intestine Disposition: ADMITTED INPATIENT Admitting Physician: HORTENCIAS (DR. CARRILLO) (JAIR SCOTT Jr. DO) Condition: IMPROVED Referrals: MICKI ROSARIO (PCP) Problem Qualifiers Primary Impression: Diverticulitis large intestine Diverticulitis bleeding: without bleeding Diverticulitis complication: without perforation or abscess Qualified Codes: K57.32 - Diverticulitis of large intestine without perforation or abscess without bleeding JEAN MARIE LEBRON MD Nov 22, 2018 16:07 JAIR SCOTT Jr., DO Nov 22, 2018 18:03
[2018-11-22 16:34] LABS: BASO # 0.1 x10^3/uL (0.0-0.2); BASO % 1 % (0-3); EOS % 0 % (0-3); HEMATOCRIT 36.1 % (36.0-47.0); HEMOGLOBIN 12.6 g/dL (12.0-15.5); LYMPH # 1.2 x10^3/uL (1.0-4.8); LYMPH % 12 % (24-48); MEAN CORPUSCULAR HEMOGLOBIN 32 pg (25-35); MEAN CORPUSCULAR HGB CONC 35 g/dL (31-37); MEAN CORPUSCULAR VOLUME 93 fL (79-100); MONO # 0.6 x10^3/uL (0.0-1.1); MONO % 6 % (0-9); NEUT # 8.1 x10^3/uL (1.8-7.7); NEUT % 81 % (31-73); PLATELET COUNT 333 x10^3/uL (140-400); RED BLOOD COUNT 3.88 x10^6/uL (3.50-5.40); RED CELL DISTRIBUTION WIDTH 12.3 % (11.5-14.5); WHITE BLOOD COUNT 10.1 x10^3/uL (4.0-11.0)
[2018-11-22 16:38] LABS: PROTHROMBIN TIME PATIENT 13.6 SEC (11.7-14.0)
[2018-11-22 16:41] LABS: CALCIUM 9.5 mg/dL (8.5-10.1); CREATININE 0.7 mg/dL (0.6-1.0); GFR 80.5
[2018-11-22 16:46] LABS: ALBUMIN 3.3 g/dL (3.4-5.0); ALBUMIN/GLOBULIN RATIO 0.8 (1.0-1.7); TOTAL BILIRUBIN 0.7 mg/dL (0.2-1.0); TOTAL PROTEIN 7.5 g/dL (6.4-8.2)
[2018-11-22] MEDS ORDERED: CONTRAST GIVEN. MC PRN (17:00)
[2018-11-22] MEDS ORDERED: IOHEXOL 300 MG/ML 100ML VIAL. IV ONE (17:00)
--- NOTE | 2018-11-22 17:46 | RAD ---
Exam: CT abdomen and pelvis with contrast INDICATION: Abdominal pain, vomiting TECHNIQUE: Sequential axial images through the abdomen and pelvis obtained following the administration of 75 mL of Omni 300 IV contrast. Sagittal and coronal reformatted images were reconstructed from the axial data and reviewed. Comparisons: None FINDINGS: Heart size is normal. No pericardial effusion. Bandlike opacity at the lung bases likely representing atelectasis. No pleural effusion. Liver, spleen, pancreas, and adrenals are unremarkable. Kidneys demonstrate symmetric enhancement. No perinephric inflammation or hydronephrosis. No renal or ureteral calculi are identified. Bilateral peripelvic cysts are noted. The graft bladder is incompletely distended and not well evaluated. Uterus is not enlarged. No abnormal adnexal mass. Extensive diverticulosis is noted within the descending and sigmoid colon. Very mild stranding noted at the descending colon/sigmoid colon junction. The appendix is normal. No free intra-abdominal air or fluid. No obstruction. Abdominal aorta has a normal course and caliber. Abdominal vasculature is patent. No enlarged intra-abdominal lymph nodes are identified. No suspicious osseous lesion or acute fracture. IMPRESSION: Very mild fat stranding at the descending/sigmoid colon junction in the area of diverticulosis which may represent a very mild diverticulitis. Exposure: One or more of the following in the visualized dose reduction techniques were utilized for this examination: 1. Automated exposure control 2. Adjustment of the MA and/or KV according to patient size 3. Use of iterative of reconstructive technique Electronically signed by: Stephen Romero MD (11/22/2018 5:43 PM) [facility]
[2018-11-22 18:14] LABS: BILIRUBIN,URINE NEGATIVE (NEG); CLARITY,URINE CLEAR; COLOR,URINE YELLOW; NITRITE,URINE NEGATIVE (NEG); PROTEIN,URINE NEGATIVE (NEG-TRACE)
[2018-11-22 18:22] LABS: BACTERIA,URINE FEW /HPF (0-FEW); RBC,URINE 0 /HPF (0-2); SQUAMOUS EPITHELIAL CELL,UR FEW /LPF
[2018-11-22] MEDS ORDERED: fentaNYL PF VIAL 100 MCG/2 ML VIAL IV ONE (20:00)
[2018-11-22] MEDS ORDERED: ACETAMINOPHEN 325 MG TABLET. PO PRN (20:00)
[2018-11-22] MEDS ORDERED: CIPROFLOXACIN 400MG PREMIX 200 ML IV ONE (20:00)
[2018-11-22] MEDS: fentaNYL PF VIAL 100 MCG/2 ML VIAL IV PRN (22:14)
[2018-11-22] MEDS: IV NORMAL SALINE 1000ML BAG 1,000 ML IV SCH (22:14)
[2018-11-22 23:00] VITALS: BP 165/89
[2018-11-23] MEDS: fentaNYL PF VIAL 100 MCG/2 ML VIAL IV PRN ×4 (01:35→14:41)
[2018-11-23] MEDS ORDERED: CHOL500L2 PO (02:38)
[2018-11-23] MEDS ORDERED: ASPI325T8 PO (02:38)
[2018-11-23 03:00] VITALS: BP 185/75
[2018-11-23] MEDS: ONDANSETRON PF 4 MG/2 ML VIAL. IV PRN ×2 (04:02→12:17)
[2018-11-23 05:37] LABS: BASO # 0.1 x10^3/uL (0.0-0.2); BASO % 1 % (0-3); EOS # 0.2 x10^3/uL (0.0-0.7); EOS % 2 % (0-3); HEMATOCRIT 34.3 % (36.0-47.0); HEMOGLOBIN 12.1 g/dL (12.0-15.5); LYMPH # 1.3 x10^3/uL (1.0-4.8); LYMPH % 13 % (24-48); MEAN CORPUSCULAR HEMOGLOBIN 33 pg (25-35); MEAN CORPUSCULAR HGB CONC 35 g/dL (31-37); MEAN CORPUSCULAR VOLUME 93 fL (79-100); MONO # 0.9 x10^3/uL (0.0-1.1); MONO % 9 % (0-9); NEUT % 76 % (31-73); PLATELET COUNT 353 x10^3/uL (140-400); RED CELL DISTRIBUTION WIDTH 12.4 % (11.5-14.5); WHITE BLOOD COUNT 10.5 x10^3/uL (4.0-11.0)
[2018-11-23 05:53] LABS: CREATININE 0.7 mg/dL (0.6-1.0); GFR 80.5; POTASSIUM 3.6 mmol/L (3.5-5.1)
--- NOTE | 2018-11-23 06:48 | EKG ---
[facility] [address] [place] [address] Test Date: 2018-11-22 Test Time: 16:12:16 Pat Name: PATO CLARK Department: Room: Gender: F Oss Architect: : [id number] Requested By: JEAN MARIE LEBRON Order Number: [id number] Reading MD: Measurements Intervals [place] Rate: 87 P: 34 [place]: 126 QRS: 3 QRSD: 84 T: 47 QT: 378 QTc: 460 Interpretive Statements SINUS RHYTHM LEFT ATRIAL ABNORMALITY NON SPECIFIC T ABNORMALITY ABNORMAL ECG No previous ECG available for comparison
[2018-11-23 07:00] VITALS: BP 167/55
--- NOTE | 2018-11-23 07:59 | PDOC1 ---
History and Physical Date of Admission Date of Admission DATE: 11/23/18 TIME: 07:59 Identification/Chief Complaint Chief Complaint vomiting/reflux, LLQ pain, change in bowel habits she underwent a revision of her left total knee arthroplasty about 2 days ago. She has been taking oxycodone every 4 hours, states that since the surgery she has been having some gradually worsening epigastric pain, described as a burning. She has had several episodes of vomiting. She has not had any diarrhea, and reports that she has been having regular bowel movements throughout this time, including several normal bowel movements 11/22. She denies any bloody emesis or stools, Past Medical History Past Medical History Past Medical History: Arthritis Additional Past Medical His Past Surgical History: Other Additional Past Surgical Histo: right shoulder surgery, left knee Alcohol Use: Occasionally Drug Use: None Cardiovascular: No pertinent hx Pulmonary: No pertinent hx GI: No pertinent hx Endocrine: No pertinent hx Past Surgical History Past Surgical History: Total knee replacement Family History Family History: Diabetes, Heart Disease, Hypertension, Stroke Social History Smoke: # pack years ALCOHOL: none Drugs: None Current Problem List Problem List Problems Medical Problems: (1) Diverticulitis large intestine Status: Acute Current Medications Current Medications Current Medications Multi-Ingredient Mouthwash/Gargle (Gi Cocktail) 20 ml 1X ONCE SWSW Last administered on 11/22/18at 16:40; Start 11/22/18 at 15:45; Stop 11/22/18 at 15:55; Status DC Sodium Chloride 1,000 ml @ 100 mls/hr Q10H IV Last administered on 11/22/18at 16:40; Start 11/22/18 at 15:44; Stop 11/23/18 at 01:43; Status DC Ondansetron HCl (Zofran) 4 mg 1X ONCE IV Last administered on 11/22/18at 16:40; Start 11/22/18 at 15:45; Stop 11/22/18 at 15:55; Status DC Iohexol (Omnipaque 300 Mg/ml) 75 ml 1X ONCE IV ; Start 11/22/18 at 17:00; Stop 11/22/18 at 17:01; Status DC Info (CONTRAST GIVEN -- Rx MONITORING) 1 each PRN DAILY PRN MC SEE COMMENTS; Start 11/22/18 at 17:00; Stop 11/24/18 at 16:59 Fentanyl Citrate (Fentanyl 2ml Vial) 50 mcg 1X ONCE IV Last administered on 11/22/18at 20:19; Start 11/22/18 at 20:00; Stop 11/22/18 at 20:01; Status DC Ondansetron HCl (Zofran) 4 mg 1X ONCE IV Last administered on 11/22/18at 22:15; Start 11/22/18 at 20:00; Stop 11/22/18 at 20:01; Status DC Ciprofloxacin/ Dextrose 200 ml @ 200 mls/hr 1X ONCE IV Last administered on 11/22/18at 20:19; Start 11/22/18 at 20:00; Stop 11/22/18 at 20:59; Status DC Metronidazole 100 ml @ 100 mls/hr Q8HRS IV Last administered on 11/23/18at 0 6:30; Start 11/22/18 at 22:00 Ondansetron HCl (Zofran) 4 mg PRN Q8HRS PRN IV NAUSEA/VOMITING Last administered on 11/23/18at 04:02; Start 11/22/18 at 20:00; Stop 11/23/18 at 19:59 Fentanyl Citrate (Fentanyl 2ml Vial) 25 mcg PRN Q1HR PRN IV PAIN Last admin istered on 11/23/18at 01:35; Start 11/22/18 at 20:00; Stop 11/23/18 at 19:59 Sodium Chloride 1,000 ml @ 100 mls/hr Q10H IV Last administered on 11/22/18at 22:15; Start 11/22/18 at 20:00; Stop 11/23/18 at 19:59 Acetaminophen (Tylenol) 650 mg PRN Q4HRS PRN PO FEVER; Start 11/22/18 at 20:00; Stop 11/23/18 at 19:59 Active Scripts Active Percocet 5-325 Mg Tablet (Oxycodone/Acetaminophen) 1 Each Tablet 1-2 Tab PO PRN Q4HRS PRN Take 1-2 tablets by mouth every 4 hours as needed for pain. Reported Meloxicam 15 Mg Tablet 1 Tab PO DAILY Pain Relief (Acetaminophen) 500 Mg Tablet 200 Mg PO PRN PRN Vitamin D3 (Cholecalciferol (Vitamin D3)) 500 Unit/5 Ml Liquid 500 Unit PO DAILY Allergies Allergies: Coded Allergies: Sulfa (Sulfonamide Antibiotics) (Verified Allergy, Intermediate, rash, 11/13/18) strawberry (Verified Allergy, Intermediate, Hives, 11/13/18) ROS Review of System Review of Systems Review of Systems Constitutional: Denies fever or chills [] Eyes: Denies change in visual acuity, redness, or eye pain [] HENT: Denies nasal congestion or sore throat [] Respiratory: Denies cough or shortness of breath [] Cardiovascular: The patient denies any shortness of breath, chest pain, palpitations, or orthopnea [] GI: No additional information not addressed in HPI [] : Denies dysuria or hematuria [] Musculoskeletal: Denies back pain or joint pain [] Integument: Denies rash or skin lesions [] Neurologic: Denies headache, focal weakness or sensory changes [] Endocrine: Denies polyuria or polydipsia [] 14 pt systems were reviewed and found to be within normal limits, except as documented . Physical Exam Physical Exam Physical Exam Physical Exam PHYSICAL EXAM: CONSTITUTIONAL: Well developed, well nourished HEAD: normocephalic, atraumatic EENT: PERRL, EOMI. Conjunctivae normal color, sclerae non-icteric; moist mucous membranes. NECK: Supple, non-tender; no meningismus. LUNGS: Lungs CTA, breathing even and unlabored. Normal air movement. HEART: Regular rate and rhythm, no murmur CHEST: No deformity; non-tender ABDOMEN: The abdomen is soft, there is diffuse tenderness to palpation to the entire upper abdomen, without rebound or guarding, the remainder the abdomen is relatively soft and non-tender, no masses or bruits. EXTREM: Normal ROM; no deformity, no calf tenderness. Normal pulses palpable in all extremities. There is no pedal edema. SKIN: No rash; no diaphoresis NEURO: Alert; normal speech and cognition; CN's grossly intact; strength grossly intact without focal deficit. BACK: No CVA TTP. General: Oriented X3, Cooperative HEENT: Atraumatic Breasts: Not examined Abdomen: Soft PELVIC: Examination not indicated Neuro: Normal speech, Cranial nerves 3-12 NL Psych/Mental Status: Mental status NL, Mood NL Vitals Vitals Vital Signs Date Time Temp Pulse Resp B/P (MAP) Pulse Ox O2 Delivery O2 Flow Rate FiO2 11/23/18 03:00 98.7 84 20 185/75 (111) 94 Room Air 98.7 Labs Labs Laboratory Tests Test 11/22/18 16:19 11/22/18 18:00 11/23/18 05:15 White Blood Count 10.1 x10^3/uL (4.0-11.0) 10.5 x10^3/uL (4.0-11.0) Red Blood Count 3.88 x10^6/uL (3.50-5.40) 3.70 x10^6/uL (3.50-5.40) Hemoglobin 12.6 g/dL (12.0-15.5) 12.1 g/dL (12.0-15.5) Hematocrit 36.1 % (36.0-47.0) 34.3 % (36.0-47.0) Mean Corpuscular Volume 93 fL (79-100) 93 fL (79-100) Mean Corpuscular Hemoglobin 32 pg (25-35) 33 pg (25-35) Mean Corpuscular Hemoglobin Concent 35 g/dL (31-37) 35 g/dL (31-37) Red Cell Distribution Width 12.3 % (11.5-14.5) 12.4 % (11.5-14.5) Platelet Count 333 x10^3/uL (140-400) 353 x10^3/uL (140-400) Neutrophils (%) (Auto) 81 % (31-73) 76 % (31-73) Lymphocytes (%) (Auto) 12 % (24-48) 13 % (24-48) Monocytes (%) (Auto) 6 % (0-9) 9 % (0-9) Eosinophils (%) (Auto) 0 % (0-3) 2 % (0-3) Basophils (%) (Auto) 1 % (0-3) 1 % (0-3) Neutrophils # (Auto) 8.1 x10^3/uL (1.8-7.7) 8.0 x10^3/uL (1.8-7.7) Lymphocytes # (Auto) 1.2 x10^3/uL (1.0-4.8) 1.3 x10^3/uL (1.0-4.8) Monocytes # (Auto) 0.6 x10^3/uL (0.0-1.1) 0.9 x10^3/uL (0.0-1.1) Eosinophils # (Auto) 0.0 x10^3/uL (0.0-0.7) 0.2 x10^3/uL (0.0-0.7) Basophils # (Auto) 0.1 x10^3/uL (0.0-0.2) 0.1 x10^3/uL (0.0-0.2) Prothrombin Time 13.6 SEC (11.7-14.0) Prothromb Time International Ratio 1.1 (0.8-1.1) Sodium Level 140 mmol/L (136-145) 141 mmol/L (136-145) Potassium Level 4.0 mmol/L (3.5-5.1) 3.6 mmol/L (3.5-5.1) Chloride Level 103 mmol/L (98-107) 105 mmol/L (98-107) Carbon Dioxide Level 27 mmol/L (21-32) 27 mmol/L (21-32) Anion Gap 10 (6-14) 9 (6-14) Blood Urea Nitrogen 17 mg/dL (7-20) 10 mg/dL (7-20) Creatinine 0.7 mg/dL (0.6-1.0) 0.7 mg/dL (0.6-1.0) Estimated GFR (Cockcroft-Gault) 80.5 80.5 BUN/Creatinine Ratio 24 (6-20) Glucose Level 167 mg/dL (70-99) 132 mg/dL (70-99) Calcium Level 9.5 mg/dL (8.5-10.1) 9.0 mg/dL (8.5-10.1) Total Bilirubin 0.7 mg/dL (0.2-1.0) Aspartate Amino Transf (AST/SGOT) 24 U/L (15-37) Alanine Aminotransferase (ALT/SGPT) 23 U/L (14-59) Alkaline Phosphatase 96 U/L (46-116) Troponin I Quantitative < 0.017 ng/mL (0.000-0.055) Total Protein 7.5 g/dL (6.4-8.2) Albumin 3.3 g/dL (3.4-5.0) Albumin/Globulin Ratio 0.8 (1.0-1.7) Lipase 83 U/L (73-393) Urine Collection Type Clean catch Urine Color Yellow Urine Clarity Clear Urine pH 8.0 Urine Specific [place] >=1.030 Urine Protein Negative mg/dL (NEG-TRACE) Urine Glucose (UA) Negative mg/dL (NEG) Urine Ketones (Stick) Trace mg/dL (NEG) Urine Blood Negative (NEG) Urine Nitrite Negative (NEG) Urine Bilirubin Negative (NEG) Urine Urobilinogen Dipstick 1.0 mg/dL (0.2 mg/dL) Urine Leukocyte Esterase Negative (NEG) Urine RBC 0 /HPF (0-2) Urine WBC 1-4 /HPF (0-4) Urine Squamous Epithelial Cells Few /LPF Urine Bacteria Few /HPF (0-FEW) Laboratory Tests Test 11/22/18 16:19 11/22/18 18:00 11/23/18 05:15 White Blood Count 10.1 x10^3/uL (4.0-11.0) 10.5 x10^3/uL (4.0-11.0) Red Blood Count 3.88 x10^6/uL (3.50-5.40) 3.70 x10^6/uL (3.50-5.40) Hemoglobin 12.6 g/dL (12.0-15.5) 12.1 g/dL (12.0-15.5) Hematocrit 36.1 % (36.0-47.0) 34.3 % (36.0-47.0) Mean Corpuscular Volume 93 fL (79-100) 93 fL (79-100) Mean Corpuscular Hemoglobin 32 pg (25-35) 33 pg (25-35) Mean Corpuscular Hemoglobin Concent 35 g/dL (31-37) 35 g/dL (31-37) Red Cell Distribution Width 12.3 % (11.5-14.5) 12.4 % (11.5-14.5) Platelet Count 333 x10^3/uL (140-400) 353 x10^3/uL (140-400) Neutrophils (%) (Auto) 81 % (31-73) 76 % (31-73) Lymphocytes (%) (Auto) 12 % (24-48) 13 % (24-48) Monocytes (%) (Auto) 6 % (0-9) 9 % (0-9) Eosinophils (%) (Auto) 0 % (0-3) 2 % (0-3) Basophils (%) (Auto) 1 % (0-3) 1 % (0-3) Neutrophils # (Auto) 8.1 x10^3/uL (1.8-7.7) 8.0 x10^3/uL (1.8-7.7) Lymphocytes # (Auto) 1.2 x10^3/uL (1.0-4.8) 1.3 x10^3/uL (1.0-4.8) Monocytes # (Auto) 0.6 x10^3/uL (0.0-1.1) 0.9 x10^3/uL (0.0-1.1) Eosinophils # (Auto) 0.0 x10^3/uL (0.0-0.7) 0.2 x10^3/uL (0.0-0.7) Basophils # (Auto) 0.1 x10^3/uL (0.0-0.2) 0.1 x10^3/uL (0.0-0.2) Prothrombin Time 13.6 SEC (11.7-14.0) Prothromb Time International Ratio 1.1 (0.8-1.1) Sodium Level 140 mmol/L (136-145) 141 mmol/L (136-145) Potassium Level 4.0 mmol/L (3.5-5.1) 3.6 mmol/L (3.5-5.1) Chloride Level 103 mmol/L (98-107) 105 mmol/L (98-107) Carbon Dioxide Level 27 mmol/L (21-32) 27 mmol/L (21-32) Anion Gap 10 (6-14) 9 (6-14) Blood Urea Nitrogen 17 mg/dL (7-20) 10 mg/dL (7-20) Creatinine 0.7 mg/dL (0.6-1.0) 0.7 mg/dL (0.6-1.0) Estimated GFR (Cockcroft-Gault) 80.5 80.5 BUN/Creatinine Ratio 24 (6-20) Glucose Level 167 mg/dL (70-99) 132 mg/dL (70-99) Calcium Level 9.5 mg/dL (8.5-10.1) 9.0 mg/dL (8.5-10.1) Total Bilirubin 0.7 mg/dL (0.2-1.0) Aspartate Amino Transf (AST/SGOT) 24 U/L (15-37) Alanine Aminotransferase (ALT/SGPT) 23 U/L (14-59) Alkaline Phosphatase 96 U/L (46-116) Troponin I Quantitative < 0.017 ng/mL (0.000-0.055) Total Protein 7.5 g/dL (6.4-8.2) Albumin 3.3 g/dL (3.4-5.0) Albumin/Globulin Ratio 0.8 (1.0-1.7) Lipase 83 U/L (73-393) Urine Collection Type Clean catch Urine Color Yellow Urine Clarity Clear Urine pH 8.0 Urine Specific [place] >=1.030 Urine Protein Negative mg/dL (NEG-TRACE) Urine Glucose (UA) Negative mg/dL (NEG) Urine Ketones (Stick) Trace mg/dL (NEG) Urine Blood Negative (NEG) Urine Nitrite Negative (NEG) Urine Bilirubin Negative (NEG) Urine Urobilinogen Dipstick 1.0 mg/dL (0.2 mg/dL) Urine Leukocyte Esterase Negative (NEG) Urine RBC 0 /HPF (0-2) Urine WBC 1-4 /HPF (0-4) Urine Squamous Epithelial Cells Few /LPF Urine Bacteria Few /HPF (0-FEW) Images Images LEFT VENTRICLE The left ventricle is normal size. There is mild to moderate concentric left ventricular hypertrophy. The left ventricular systolic function is normal and the ejection fraction is within normal range. The Ejection Fraction is 70%. RIGHT VENTRICLE The right ventricle is normal size. There is normal right ventricular wall thickness. The right ventricular systolic function is normal. ATRIA The left atrium size is normal. The right atrium size is normal. The interatrial septum is intact with no evidence for an atrial septal defect or patent foramen ovale as noted on 2-D or Doppler imaging. AORTIC VALVE The aortic valve is trileaflet. The aortic valve is mildly thickened. Doppler and Color Flow revealed trace aortic regurgitation. There is no significant aortic valvular stenosis. MITRAL VALVE There is no evidence of mitral valve prolapse. There is no mitral valve stenosis. Doppler and Color-flow revealed mild mitral regurgitation. TRICUSPID VALVE Doppler and Color Flow revealed mild to moderate tricuspid regurgitation. There is no tricuspid valve stenosis. PULMONIC VALVE The pulmonic valve is not well visualized. Doppler and Color Flow revealed no pulmonic valvular regurgitation. There is no pulmonic valvular stenosis. GREAT VESSELS The aortic root is normal in size. The IVC is normal in size and collapses >50% with inspiration. PERICARDIAL EFFUSION There is no pleural effusion. There is a very small pericardial effusion Critical Notification Critical Value: Yes <Conclusion> The left ventricular systolic function is normal and the ejection fraction is within normal range. The Ejection Fraction is 70%. There is mild to moderate concentric left ventricular hypertrophy. The left atrium size is normal. The right atrium size is normal. The aortic valve is trileaflet. The aortic valve is mildly thickened. Doppler and Color Flow revealed trace aortic regurgitation. Doppler and Color-flow revealed mild mitral regurgitation. Doppler and Color Flow revealed mild to moderate tricuspid regurgitation. The pulmonic valve is not well visualized. There is a very small pericardial effusion Signed by : Orlando Lamas MD Electronically Approved : 08/03/2017 15:15:46 REASON: abd pain, vomiting PROCEDURE: CT ABD PELV W/ IV CONTRST ONLY Exam: CT abdomen and pelvis with contrast INDICATION: Abdominal pain, vomiting TECHNIQUE: Sequential axial images through the abdomen and pelvis obtained following the administration of 75 mL of Omni 300 IV contrast. Sagittal and coronal reformatted images were reconstructed from the axial data and reviewed. Comparisons: None FINDINGS: Heart size is normal. No pericardial effusion. Bandlike opacity at the lung bases likely representing atelectasis. No pleural effusion. Liver, spleen, pancreas, and adrenals are unremarkable. Kidneys demonstrate symmetric enhancement. No perinephric inflammation or hydronephrosis. No renal or ureteral calculi are identified. Bilateral peripelvic cysts are noted. The graft bladder is incompletely distended and not well evaluated. Uterus is not enlarged. No abnormal adnexal mass. Extensive diverticulosis is noted within the descending and sigmoid colon. Very mild stranding noted at the descending colon/sigmoid colon junction. The appendix is normal. No free intra-abdominal air or fluid. No obstruction. Abdominal aorta has a normal course and caliber. Abdominal vasculature is patent. No enlarged intra-abdominal lymph nodes are identified. No suspicious osseous lesion or acute fracture. IMPRESSION: Very mild fat stranding at the descending/sigmoid colon junction in the area of diverticulosis which may represent a very mild diverticulitis. Exposure: One or more of the following in the visualized dose reduction techniques were utilized for this examination: 1. Automated exposure control 2. Adjustment of the MA and/or KV according to patient size 3. Use of iterative of reconstructive technique Electronically signed by: Stephen Romero MD (11/22/2018 5:43 PM) [facility] [id number] VTE Prophylaxis Ordered VTE Prophylaxis Devices: Yes VTE Pharmacological Prophylaxi: Yes Assessment/Plan Assessment/Plan Impression: Diverticulitis large intestine, acute mild fat stranding at the descending/sigmoid colon junction in the area of diverticulosis which may represent a very mild diverticulitis. ADMITTED gi consult IV ANTIBIOTICS , CIPRO, FLAGYL DVT PROPHYLAXIS IV PROTONIX HOME MEDS 56 MIN PT EXAM, CGHART REVIEW, > 50% OF TIME SPENT WITH EXAM, CHART REVIEW, PT CARE COORDINATION DEVON CARRILLO MD Nov 23, 2018 07:59
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
[2018-11-23] MEDS ORDERED: CALCIUM CARBONATE 500 MG TAB.CHEW PO PRN (09:45)
[2018-11-23] MEDS ORDERED: DICYCLOMINE HCL 10 MG CAPSULE PO PRN (09:45)
[2018-11-23] MEDS: CIPROFLOXACIN 200MG PREMIX 100 ML IV SCH ×2 (10:32→20:23)
[2018-11-23 11:00] VITALS: BP 183/75
[2018-11-23] MEDS: LIDO:MAALOX 1:1 20 ML SINGLE DOSE. PO PRN ×2 (12:17→20:29)
[2018-11-23] MEDS: IV NORMAL SALINE 1000ML BAG 1,000 ML IV SCH ×2 (12:45→16:00)
--- NOTE | 2018-11-23 14:23 | EKG ---
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
[2018-11-23 15:00] VITALS: BP 137/51
[2018-11-23] MEDS ORDERED: ACETAMINOPHEN 500 MG TABLET PO PRN (15:00)
[2018-11-23] MEDS: PANTOPRAZOLE IV PUSH 40 MG VIAL. IVP SCH (16:29)
[2018-11-23 19:00] VITALS: BP 148/59
[2018-11-23] MEDS: ASPIRIN 325 MG TABLET PO SCH (20:23)
[2018-11-23] MEDS: LACTOBACILLUS RHAMNOSUS GG 1 CAPSULE. PO SCH (20:23)
[2018-11-23 23:00] VITALS: BP 156/62
[2018-11-24 03:00] VITALS: BP 152/62
[2018-11-24 05:08] LABS: BASO # 0.1 x10^3/uL (0.0-0.2); BASO % 1 % (0-3); EOS # 0.5 x10^3/uL (0.0-0.7); EOS % 5 % (0-3); HEMATOCRIT 33.6 % (36.0-47.0); HEMOGLOBIN 11.7 g/dL (12.0-15.5); LYMPH % 21 % (24-48); MEAN CORPUSCULAR HEMOGLOBIN 32 pg (25-35); MEAN CORPUSCULAR HGB CONC 35 g/dL (31-37); MEAN CORPUSCULAR VOLUME 93 fL (79-100); MONO # 0.9 x10^3/uL (0.0-1.1); MONO % 10 % (0-9); NEUT % 63 % (31-73); PLATELET COUNT 338 x10^3/uL (140-400); RED BLOOD COUNT 3.62 x10^6/uL (3.50-5.40); RED CELL DISTRIBUTION WIDTH 12.4 % (11.5-14.5); WHITE BLOOD COUNT 9.5 x10^3/uL (4.0-11.0)
[2018-11-24 05:37] LABS: ALBUMIN 2.8 g/dL (3.4-5.0); ALBUMIN/GLOBULIN RATIO 0.8 (1.0-1.7); CALCIUM 8.8 mg/dL (8.5-10.1); CREATININE 0.7 mg/dL (0.6-1.0); GFR 80.5; POTASSIUM 3.6 mmol/L (3.5-5.1); TOTAL BILIRUBIN 0.5 mg/dL (0.2-1.0); TOTAL PROTEIN 6.5 g/dL (6.4-8.2)
[2018-11-24 07:00] VITALS: BP 146/61
--- NOTE | 2018-11-24 07:21 | PDOC ---
PROGRESS NOTES History of Present Illness History of Present Illness VTE Prophylaxis Ordered VTE Prophylaxis Devices: Yes VTE Pharmacological Prophylaxi: Yes Assessment/Plan Assessment/Plan Impression: Diverticulitis large intestine, acute mild fat stranding at the descending/sigmoid colon junction in the area of diverticulosis which may represent a very mild diverticulitis. MODERATE PROTEIN-CALORIC MALNUTRITION ADMITTED gi consult IV ANTIBIOTICS , CIPRO, FLAGYL DVT PROPHYLAXIS IV PROTONIX HOME MEDS CLEAR LIQ DIET 29 MIN PT EXAM, CGHART REVIEW, > 50% OF TIME SPENT WITH EXAM, CHART REVIEW, PT CARE COORDINATION Vitals Vitals Vital Signs Date Time Temp Pulse Resp B/P (MAP) Pulse Ox O2 Delivery O2 Flow Rate FiO2 11/24/18 03:00 99.3 84 20 152/62 (92) 95 Room Air 99.3 Physical Exam General: Alert, Oriented X3, Cooperative, No acute distress Heart: Regular rate, Normal S1 Lungs: Clear Abdomen: Soft Extremities: No cyanosis, No edema Labs LABS Laboratory Tests Test 11/24/18 04:55 White Blood Count 9.5 x10^3/uL (4.0-11.0) Red Blood Count 3.62 x10^6/uL (3.50-5.40) Hemoglobin 11.7 g/dL (12.0-15.5) Hematocrit 33.6 % (36.0-47.0) Mean Corpuscular Volume 93 fL (79-100) Mean Corpuscular Hemoglobin 32 pg (25-35) Mean Corpuscular Hemoglobin Concent 35 g/dL (31-37) Red Cell Distribution Width 12.4 % (11.5-14.5) Platelet Count 338 x10^3/uL (140-400) Neutrophils (%) (Auto) 63 % (31-73) Lymphocytes (%) (Auto) 21 % (24-48) Monocytes (%) (Auto) 10 % (0-9) Eosinophils (%) (Auto) 5 % (0-3) Basophils (%) (Auto) 1 % (0-3) Neutrophils # (Auto) 6.0 x10^3/uL (1.8-7.7) Lymphocytes # (Auto) 2.0 x10^3/uL (1.0-4.8) Monocytes # (Auto) 0.9 x10^3/uL (0.0-1.1) Eosinophils # (Auto) 0.5 x10^3/uL (0.0-0.7) Basophils # (Auto) 0.1 x10^3/uL (0.0-0.2) Sodium Level 143 mmol/L (136-145) Potassium Level 3.6 mmol/L (3.5-5.1) Chloride Level 108 mmol/L (98-107) Carbon Dioxide Level 26 mmol/L (21-32) Anion Gap 9 (6-14) Blood Urea Nitrogen 6 mg/dL (7-20) Creatinine 0.7 mg/dL (0.6-1.0) Estimated GFR (Cockcroft-Gault) 80.5 BUN/Creatinine Ratio 9 (6-20) Glucose Level 109 mg/dL (70-99) Calcium Level 8.8 mg/dL (8.5-10.1) Total Bilirubin 0.5 mg/dL (0.2-1.0) Aspartate Amino Transf (AST/SGOT) 18 U/L (15-37) Alanine Aminotransferase (ALT/SGPT) 20 U/L (14-59) Alkaline Phosphatase 81 U/L (46-116) Total Protein 6.5 g/dL (6.4-8.2) Albumin 2.8 g/dL (3.4-5.0) Albumin/Globulin Ratio 0.8 (1.0-1.7) Assessment and Plan Assessmemt and Plan Problems Medical Problems: (1) Diverticulitis large intestine Status: Acute Comment Review of Relevant I have reviewed the following items lynn (where applicable) has been applied. Labs Laboratory Tests Test 11/22/18 16:19 11/22/18 18:00 11/23/18 05:15 11/24/18 04:55 White Blood Count 10.1 x10^3/uL (4.0-11.0) 10.5 x10^3/uL (4.0-11.0) 9.5 x10^3/uL (4.0-11.0) Red Blood Count 3.88 x10^6/uL (3.50-5.40) 3.70 x10^6/uL (3.50-5.40) 3.62 x10^6/uL (3.50-5.40) Hemoglobin 12.6 g/dL (12.0-15.5) 12.1 g/dL (12.0-15.5) 11.7 g/dL (12.0-15.5) Hematocrit 36.1 % (36.0-47.0) 34.3 % (36.0-47.0) 33.6 % (36.0-47.0) Mean Corpuscular Volume 93 fL (79-100) 93 fL (79-100) 93 fL (79-100) Mean Corpuscular Hemoglobin 32 pg (25-35) 33 pg (25-35) 32 pg (25-35) Mean Corpuscular Hemoglobin Concent 35 g/dL (31-37) 35 g/dL (31-37) 35 g/dL (31-37) Red Cell Distribution Width 12.3 % (11.5-14.5) 12.4 % (11.5-14.5) 12.4 % (11.5-14.5) Platelet Count 333 x10^3/uL (140-400) 353 x10^3/uL (140-400) 338 x10^3/uL (140-400) Neutrophils (%) (Auto) 81 % (31-73) 76 % (31-73) 63 % (31-73) Lymphocytes (%) (Auto) 12 % (24-48) 13 % (24-48) 21 % (24-48) Monocytes (%) (Auto) 6 % (0-9) 9 % (0-9) 10 % (0-9) Eosinophils (%) (Auto) 0 % (0-3) 2 % (0-3) 5 % (0-3) Basophils (%) (Auto) 1 % (0-3) 1 % (0-3) 1 % (0-3) Neutrophils # (Auto) 8.1 x10^3/uL (1.8-7.7) 8.0 x10^3/uL (1.8-7.7) 6.0 x10^3/uL (1.8-7.7) Lymphocytes # (Auto) 1.2 x10^3/uL (1.0-4.8) 1.3 x10^3/uL (1.0-4.8) 2.0 x10^3/uL (1.0-4.8) Monocytes # (Auto) 0.6 x10^3/uL (0.0-1.1) 0.9 x10^3/uL (0.0-1.1) 0.9 x10^3/uL (0.0-1.1) Eosinophils # (Auto) 0.0 x10^3/uL (0.0-0.7) 0.2 x10^3/uL (0.0-0.7) 0.5 x10^3/uL (0.0-0.7) Basophils # (Auto) 0.1 x10^3/uL (0.0-0.2) 0.1 x10^3/uL (0.0-0.2) 0.1 x10^3/uL (0.0-0.2) Prothrombin Time 13.6 SEC (11.7-14.0) Prothromb Time International Ratio 1.1 (0.8-1.1) Sodium Level 140 mmol/L (136-145) 141 mmol/L (136-145) 143 mmol/L (136-145) Potassium Level 4.0 mmol/L (3.5-5.1) 3.6 mmol/L (3.5-5.1) 3.6 mmol/L (3.5-5.1) Chloride Level 103 mmol/L (98-107) 105 mmol/L (98-107) 108 mmol/L (98-107) Carbon Dioxide Level 27 mmol/L (21-32) 27 mmol/L (21-32) 26 mmol/L (21-32) Anion Gap 10 (6-14) 9 (6-14) 9 (6-14) Blood Urea Nitrogen 17 mg/dL (7-20) 10 mg/dL (7-20) 6 mg/dL (7-20) Creatinine 0.7 mg/dL (0.6-1.0) 0.7 mg/dL (0.6-1.0) 0.7 mg/dL (0.6-1.0) Estimated GFR (Cockcroft-Gault) 80.5 80.5 80.5 BUN/Creatinine Ratio 24 (6-20) 9 (6-20) Glucose Level 167 mg/dL (70-99) 132 mg/dL (70-99) 109 mg/dL (70-99) Calcium Level 9.5 mg/dL (8.5-10.1) 9.0 mg/dL (8.5-10.1) 8.8 mg/dL (8.5-10.1) Total Bilirubin 0.7 mg/dL (0.2-1.0) 0.5 mg/dL (0.2-1.0) Aspartate Amino Transf (AST/SGOT) 24 U/L (15-37) 18 U/L (15-37) Alanine Aminotransferase (ALT/SGPT) 23 U/L (14-59) 20 U/L (14-59) Alkaline Phosphatase 96 U/L (46-116) 81 U/L (46-116) Troponin I Quantitative < 0.017 ng/mL (0.000-0.055) < 0.017 ng/mL (0.000-0.055) Total Protein 7.5 g/dL (6.4-8.2) 6.5 g/dL (6.4-8.2) Albumin 3.3 g/dL (3.4-5.0) 2.8 g/dL (3.4-5.0) Albumin/Globulin Ratio 0.8 (1.0-1.7) 0.8 (1.0-1.7) Lipase 83 U/L (73-393) Urine Collection Type Clean catch Urine Color Yellow Urine Clarity Clear Urine pH 8.0 Urine Specific [place] >=1.030 Urine Protein Negative mg/dL (NEG-TRACE) Urine Glucose (UA) Negative mg/dL (NEG) Urine Ketones (Stick) Trace mg/dL (NEG) Urine Blood Negative (NEG) Urine Nitrite Negative (NEG) Urine Bilirubin Negative (NEG) Urine Urobilinogen Dipstick 1.0 mg/dL (0.2 mg/dL) Urine Leukocyte Esterase Negative (NEG) Urine RBC 0 /HPF (0-2) Urine WBC 1-4 /HPF (0-4) Urine Squamous Epithelial Cells Few /LPF Urine Bacteria Few /HPF (0-FEW) Laboratory Tests Test 11/24/18 04:55 White Blood Count 9.5 x10^3/uL (4.0-11.0) Red Blood Count 3.62 x10^6/uL (3.50-5.40) Hemoglobin 11.7 g/dL (12.0-15.5) Hematocrit 33.6 % (36.0-47.0) Mean Corpuscular Volume 93 fL (79-100) Mean Corpuscular Hemoglobin 32 pg (25-35) Mean Corpuscular Hemoglobin Concent 35 g/dL (31-37) Red Cell Distribution Width 12.4 % (11.5-14.5) Platelet Count 338 x10^3/uL (140-400) Neutrophils (%) (Auto) 63 % (31-73) Lymphocytes (%) (Auto) 21 % (24-48) Monocytes (%) (Auto) 10 % (0-9) Eosinophils (%) (Auto) 5 % (0-3) Basophils (%) (Auto) 1 % (0-3) Neutrophils # (Auto) 6.0 x10^3/uL (1.8-7.7) Lymphocytes # (Auto) 2.0 x10^3/uL (1.0-4.8) Monocytes # (Auto) 0.9 x10^3/uL (0.0-1.1) Eosinophils # (Auto) 0.5 x10^3/uL (0.0-0.7) Basophils # (Auto) 0.1 x10^3/uL (0.0-0.2) Sodium Level 143 mmol/L (136-145) Potassium Level 3.6 mmol/L (3.5-5.1) Chloride Level 108 mmol/L (98-107) Carbon Dioxide Level 26 mmol/L (21-32) Anion Gap 9 (6-14) Blood Urea Nitrogen 6 mg/dL (7-20) Creatinine 0.7 mg/dL (0.6-1.0) Estimated GFR (Cockcroft-Gault) 80.5 BUN/Creatinine Ratio 9 (6-20) Glucose Level 109 mg/dL (70-99) Calcium Level 8.8 mg/dL (8.5-10.1) Total Bilirubin 0.5 mg/dL (0.2-1.0) Aspartate Amino Transf (AST/SGOT) 18 U/L (15-37) Alanine Aminotransferase (ALT/SGPT) 20 U/L (14-59) Alkaline Phosphatase 81 U/L (46-116) Total Protein 6.5 g/dL (6.4-8.2) Albumin 2.8 g/dL (3.4-5.0) Albumin/Globulin Ratio 0.8 (1.0-1.7) Medications Current Medications Multi-Ingredient Mouthwash/Gargle (Gi Cocktail) 20 ml 1X ONCE SWSW Last administered on 11/22/18at 16:40; Start 11/22/18 at 15:45; Stop 11/22/18 at 15:55; Status DC Sodium Chloride 1,000 ml @ 100 mls/hr Q10H IV Last administered on 11/22/18at 16:40; Start 11/22/18 at 15:44; Stop 11/23/18 at 01:43; Status DC Ondansetron HCl (Zofran) 4 mg 1X ONCE IV Last administered on 11/22/18at 16:40; Start 11/22/18 at 15:45; Stop 11/22/18 at 15:55; Status DC Iohexol (Omnipaque 300 Mg/ml) 75 ml 1X ONCE IV ; Start 11/22/18 at 17:00; Stop 11/22/18 at 17:01; Status DC Info (CONTRAST GIVEN -- Rx MONITORING) 1 each PRN DAILY PRN MC SEE COMMENTS; Start 11/22/18 at 17:00; Stop 11/24/18 at 16:59 Fentanyl Citrate (Fentanyl 2ml Vial) 50 mcg 1X ONCE IV Last administered on 11/22/18at 20:19; Start 11/22/18 at 20:00; Stop 11/22/18 at 20:01; Status DC Ondansetron HCl (Zofran) 4 mg 1X ONCE IV Last administered on 11/22/18at 22:15; Start 11/22/18 at 20:00; Stop 11/22/18 at 20:01; Status DC Ciprofloxacin/ Dextrose 200 ml @ 200 mls/hr 1X ONCE IV Last administered on 11/22/18at 20:19; Start 11/22/18 at 20:00; Stop 11/22/18 at 20:59; Status DC Metronidazole 100 ml @ 100 mls/hr Q8HRS IV Last administered on 11/24/18at 06:17; Start 11/22/18 at 22:00 Ondansetron HCl (Zofran) 4 mg PRN Q8HRS PRN IV NAUSEA/VOMITING Last administered on 11/23/18 12:17; Start 11/22/18 at 20:00; Stop 11/23/18 at 19:59; Status DC Fentanyl Citrate (Fentanyl 2ml Vial) 25 mcg PRN Q1HR PRN IV PAIN Last administered on 11/23/18 14:43; Start 11/22/18 at 20:00; Stop 11/23/18 at 19:59; Status DC Sodium Chloride 1,000 ml @ 100 mls/hr Q10H IV Last administered on 11/23/18at 12:45; Start 11/22/18 at 20:00; Stop 11/23/18 at 19:59; Status DC Acetaminophen (Tylenol) 650 mg PRN Q4HRS PRN PO FEVER; Start 11/22/18 at 20:00; Stop 11/23/18 at 19:59; Status DC Pantoprazole Sodium (PROTONIX VIAL for IV PUSH) 40 mg BIDAC IVP Last administered on 11/23/18 16:29; Start 11/23/18 at 16:30 Ciprofloxacin/ Dextrose 100 ml @ 100 mls/hr Q12HR IV Last administered on 11/23/18 20:23; Start 11/23/18 at 10:00 Multi-Ingredient Mouthwash/Gargle (Gi Cocktail) 20 ml PRN QID PRN PO abd pain Last administered on 11/23/18at 20:29; Start 11/23/18 at 09:45 Calcium Carbonate/ Glycine (Tums) 500 mg PRN AFTMEALHC PRN PO INDIGESTION; Start 11/23/18 at 09:45 Dicyclomine HCl (Bentyl) 10 mg PRN TID PRN PO abd pain; Start 11/23/18 at 09:45 Acetaminophen (Tylenol) 500 mg PRN Q4HRS PRN PO FEVER/HEADACHE; Start 11/23/18 at 15:00 Aspirin (Lolis Aspirin) 325 mg BID PO Last administered on 11/23/18 20:23; Start 11/23/18 at 21:00 Vitamin D (Vitamin D3) 1,000 unit DAILY PO ; Start 11/24/18 at 09:00 Meloxicam (Mobic) 15 mg DAILY PO ; Start 11/24/18 at 09:00 Enoxaparin Sodium (Lovenox 40mg Syringe) 40 mg Q24H SQ ; Start 11/24/18 at 09:00 Lactobacillus Rhamnosus (Culturelle) 1 cap BID PO Last administered on 11/23/18at 20:23; Start 11/23/18 at 21:00 Active Scripts Active Percocet 5-325 Mg Tablet (Oxycodone/Acetaminophen) 1 Each Tablet 1-2 Tab PO P RN Q4HRS PRN Take 1-2 tablets by mouth every 4 hours as needed for pain. Reported Aspirin 325 Mg Tablet 1 Tab PO BID Vitamin D3 (Cholecalciferol (Vitamin D3)) 500 Unit/5 Ml Liquid 500 Unit PO DAILY Meloxicam 15 Mg Tablet 1 Tab PO DAILY Pain Relief (Acetaminophen) 500 Mg Tablet 200 Mg PO PRN PRN Vitals/I & O Vital Sign - Last 24 Hours 11/23/18 11/23/18 11/23/18 11/23/18 08:00 11:00 12:17 12:48 Temp 98.0 98.0 Pulse 82 Resp 16 B/P (MAP) 183/75 (111) Pulse Ox 97 O2 Delivery Room Air Room Air Room Air Room Air 11/23/18 11/23/18 11/23/18 11/23/18 15:00 19:00 20:00 22:15 Temp 99.0 99.2 99.0 99.2 Pulse 79 79 Resp 16 20 B/P (MAP) 137/51 (79) 148/59 (88) Pulse Ox 93 97 O2 Delivery Room Air Room Air Room Air Room Air 11/23/18 11/24/18 23:00 03:00 Temp 99.8 99.3 99.8 99.3 Pulse 76 84 Resp 20 20 B/P (MAP) 156/62 (93) 152/62 (92) Pulse Ox 97 95 O2 Delivery Room Air Room Air Intake and Output 11/23/18 11/23/18 11/24/18 14:59 22:59 06:59 Intake Total 100 ml 1400 ml Balance 100 ml 1400 ml DEVON CARRILLO MD Nov 24, 2018 07:21
[2018-11-24] MEDS: PANTOPRAZOLE IV PUSH 40 MG VIAL. IVP SCH ×2 (08:35→17:24)
[2018-11-24] MEDS: CIPROFLOXACIN 200MG PREMIX 100 ML IV SCH ×2 (08:38→20:47)
[2018-11-24] MEDS: ASPIRIN 325 MG TABLET PO SCH ×2 (08:40→20:47)
[2018-11-24] MEDS: LACTOBACILLUS RHAMNOSUS GG 1 CAPSULE. PO SCH ×2 (08:40→20:47)
[2018-11-24] MEDS: CHOLECALCIFEROL (VITAMIN D3) 1,000 UNIT TABLET PO SCH (08:41)
[2018-11-24] MEDS: MELOXICAM 7.5 MG TABLET PO SCH (08:41)
[2018-11-24] MEDS: ENOXAPARIN 40 MG/0.4 ML SYRINGE. SQ SCH (08:42)
[2018-11-24 11:00] VITALS: BP 161/53
[2018-11-24] MEDS: LIDO:MAALOX 1:1 20 ML SINGLE DOSE. PO PRN ×2 (13:57→20:47)
[2018-11-24 15:00] VITALS: BP 149/62
[2018-11-24 19:00] VITALS: BP 155/60
[2018-11-24 23:00] VITALS: BP 173/58
[2018-11-25 03:00] VITALS: BP 175/71
[2018-11-25 07:00] VITALS: BP 149/63
--- NOTE | 2018-11-25 08:31 | PDOC ---
PROGRESS NOTES History of Present Illness History of Present Illness VTE Prophylaxis Ordered VTE Prophylaxis Devices: Yes VTE Pharmacological Prophylaxi: Yes Assessment/Plan Assessment/Plan Impression: Diverticulitis large intestine, acute mild fat stranding at the descending/sigmoid colon junction in the area of diverticulosis which may represent a very mild diverticulitis. MODERATE PROTEIN-CALORIC MALNUTRITION ADMITTED gi consult IV ANTIBIOTICS , CIPRO, FLAGYL DVT PROPHYLAXIS IV PROTONIX HOME MEDS CLEAR LIQ DIET advance diet 27 MIN PT EXAM, CHART REVIEW, > 50% OF TIME SPENT WITH EXAM, CHART REVIEW, PT CARE COORDINATION Vitals Vitals Vital Signs Date Time Temp Pulse Resp B/P (MAP) Pulse Ox O2 Delivery O2 Flow Rate FiO2 11/25/18 07:00 98.2 72 18 149/63 (91) 95 Room Air 98.2 Physical Exam General: Alert, Oriented X3, Cooperative, No acute distress Heart: Regular rate, Normal S1 Lungs: Clear Abdomen: Soft Extremities: No cyanosis, No edema Labs LABS SPEC #: [id number] ISSA: 11/23/18 STATUS: RES REQ #: [id number] RECD: 11/23/18-[address] [facility] [address]: LISSETH THACKER SOURCE: FECES ENTR: 11/23/18-[address] [facility] [address]: MICKI ROSARIO SPDESC: DEVON CARRILLO MD, SCOTT S MD ORDERED: STOOL CULT COMMENTS: Has specimen been collected/obtained? Y ------ ------ Procedure Result STOOL CULTURE Final Final report STOOL CULT RES 1 Final Comment No Salmonella or Shigella recovered. Performed at: - [facility] [address], [place], [place] [id number] Time Clerk: FAROOQ Otero MD, Phone: [phone] CAMPY PENDING CAMPY RES 1 PENDING SHIGA TOXIN PENDING Assessment and Plan Assessmemt and Plan Problems Medical Problems: (1) Diverticulitis large intestine Status: Acute Comment Review of Relevant I have reviewed the following items lynn (where applicable) has been applied. Labs Laboratory Tests Test 11/23/18 09:50 11/24/18 04:55 Clostridium difficile Toxin B Gene Negative (Negative) White Blood Count 9.5 x10^3/uL (4.0-11.0) Red Blood Count 3.62 x10^6/uL (3.50-5.40) Hemoglobin 11.7 g/dL (12.0-15.5) Hematocrit 33.6 % (36.0-47.0) Mean Corpuscular Volume 93 fL (79-100) Mean Corpuscular Hemoglobin 32 pg (25-35) Mean Corpuscular Hemoglobin Concent 35 g/dL (31-37) Red Cell Distribution Width 12.4 % (11.5-14.5) Platelet Count 338 x10^3/uL (140-400) Neutrophils (%) (Auto) 63 % (31-73) Lymphocytes (%) (Auto) 21 % (24-48) Monocytes (%) (Auto) 10 % (0-9) Eosinophils (%) (Auto) 5 % (0-3) Basophils (%) (Auto) 1 % (0-3) Neutrophils # (Auto) 6.0 x10^3/uL (1.8-7.7) Lymphocytes # (Auto) 2.0 x10^3/uL (1.0-4.8) Monocytes # (Auto) 0.9 x10^3/uL (0.0-1.1) Eosinophils # (Auto) 0.5 x10^3/uL (0.0-0.7) Basophils # (Auto) 0.1 x10^3/uL (0.0-0.2) Sodium Level 143 mmol/L (136-145) Potassium Level 3.6 mmol/L (3.5-5.1) Chloride Level 108 mmol/L (98-107) Carbon Dioxide Level 26 mmol/L (21-32) Anion Gap 9 (6-14) Blood Urea Nitrogen 6 mg/dL (7-20) Creatinine 0.7 mg/dL (0.6-1.0) Estimated GFR (Cockcroft-Gault) 80.5 BUN/Creatinine Ratio 9 (6-20) Glucose Level 109 mg/dL (70-99) Calcium Level 8.8 mg/dL (8.5-10.1) Total Bilirubin 0.5 mg/dL (0.2-1.0) Aspartate Amino Transf (AST/SGOT) 18 U/L (15-37) Alanine Aminotransferase (ALT/SGPT) 20 U/L (14-59) Alkaline Phosphatase 81 U/L (46-116) Total Protein 6.5 g/dL (6.4-8.2) Albumin 2.8 g/dL (3.4-5.0) Albumin/Globulin Ratio 0.8 (1.0-1.7) Medications Current Medications Multi-Ingredient Mouthwash/Gargle (Gi Cocktail) 20 ml 1X ONCE SWSW Last administered on 11/22/18at 16:40; Start 11/22/18 at 15:45; Stop 11/22/18 at 15:55; Status DC Sodium Chloride 1,000 ml @ 100 mls/hr Q10H IV Last administered on 11/22/18at 16:40; Start 11/22/18 at 15:44; Stop 11/23/18 at 01:43; Status DC Ondansetron HCl (Zofran) 4 mg 1X ONCE IV Last administered on 11/22/18at 16:40; Start 11/22/18 at 15:45; Stop 11/22/18 at 15:55; Status DC Iohexol (Omnipaque 300 Mg/ml) 75 ml 1X ONCE IV ; Start 11/22/18 at 17:00; Stop 11/22/18 at 17:01; Status DC Info (CONTRAST GIVEN -- Rx MONITORING) 1 each PRN DAILY PRN MC SEE COMMENTS; Start 11/22/18 at 17:00; Stop 11/24/18 at 16:59; Status DC Fentanyl Citrate (Fentanyl 2ml Vial) 50 mcg 1X ONCE IV Last administered on 11/22/18at 20:19; Start 11/22/18 at 20:00; Stop 11/22/18 at 20:01; Status DC Ondansetron HCl (Zofran) 4 mg 1X ONCE IV Last administered on 11/22/18at 22:15; Start 11/22/18 at 20:00; Stop 11/22/18 at 20:01; Status DC Ciprofloxacin/ Dextrose 200 ml @ 200 mls/hr 1X ONCE IV Last administered on 11/22/18at 20:19; Start 11/22/18 at 20:00; Stop 11/22/18 at 20:59; Status DC Metronidazole 100 ml @ 100 mls/hr Q8HRS IV Last administered on 11/25/18at 05:57; Start 11/22/18 at 22:00 Ondansetron HCl (Zofran) 4 mg PRN Q8HRS PRN IV NAUSEA/VOMITING Last administered on 11/23/18at 12:17; Start 11/22/18 at 20:00; Stop 11/23/18 at 19:59; Status DC Fentanyl Citrate (Fentanyl 2ml Vial) 25 mcg PRN Q1HR PRN IV PAIN Last administered on 11/23/18at 14:43; Start 11/22/18 at 20:00; Stop 11/23/18 at 19:59; Status DC Sodium Chloride 1,000 ml @ 100 mls/hr Q10H IV Last administered on 11/23/18at 12:45; Start 11/22/18 at 20:00; Stop 11/23/18 at 19:59; Status DC Acetaminophen (Tylenol) 650 mg PRN Q4HRS PRN PO FEVER; Start 11/22/18 at 20:00; Stop 11/23/18 at 19:59; Status DC Pantoprazole Sodium (PROTONIX VIAL for IV PUSH) 40 mg BIDAC IVP Last administered on 11/24/18at 17:29; Start 11/23/18 at 16:30 Ciprofloxacin/ Dextrose 100 ml @ 100 mls/hr Q12HR IV Last administered on 11/24/18 20:47; Start 11/23/18 at 10:00 Multi-Ingredient Mouthwash/Gargle (Gi Cocktail) 20 ml PRN QID PRN PO abd pain Last administered on 11/24/18 20:47; Start 11/23/18 at 09:45 Calcium Carbonate/ Glycine (Tums) 500 mg PRN AFTMEALHC PRN PO INDIGESTION; Start 11/23/18 at 09:45 Dicyclomine HCl (Bentyl) 10 mg PRN TID PRN PO abd pain; Start 11/23/18 at 09:45 Acetaminophen (Tylenol) 500 mg PRN Q4HRS PRN PO FEVER/HEADACHE; Start 11/23/18 at 15:00 Aspirin (Lolis Aspirin) 325 mg BID PO Last administered on 11/24/18 20:47; Start 11/23/18 at 21:00 Vitamin D (Vitamin D3) 1,000 unit DAILY PO Last administered on 11/24/18 08:43; Start 11/24/18 at 09:00 Meloxicam (Mobic) 15 mg DAILY PO Last administered on 11/24/18 08:43; Start 11/24/18 at 09:00 Enoxaparin Sodium (Lovenox 40mg Syringe) 40 mg Q24H SQ Last administered on 11/24/18 08:43; Start 11/24/18 at 09:00 Lactobacillus Rhamnosus (Culturelle) 1 cap BID PO Last administered on 11/24/18 20:47; Start 11/23/18 at 21:00 Active Scripts Active Percocet 5-325 Mg Tablet (Oxycodone/Acetaminophen) 1 Each Tablet 1-2 Tab PO PRN Q4HRS PRN Take 1-2 tablets by mouth every 4 hours as needed for pain. Reported Aspirin 325 Mg Tablet 1 Tab PO BID Vitamin D3 (Cholecalciferol (Vitamin D3)) 500 Unit/5 Ml Liquid 500 Unit PO DAILY Meloxicam 15 Mg Tablet 1 Tab PO DAILY Pain Relief (Acetaminophen) 500 Mg Tablet 200 Mg PO PRN PRN Vitals/I & O Vital Sign - Last 24 Hours 9/14/19 9/14/19 9/14/19 9/14/19 11:00 15:00 19:00 19:45 Temp 98.1 98.6 98.8 98.1 98.6 98.8 Pulse 78 77 78 Resp 16 16 18 B/P (MAP) 161/53 (89) 149/62 (91) 155/60 (91) Pulse Ox 97 96 97 O2 Delivery Room Air Room Air Room Air Room Air 11/24/18 11/25/18 11/25/18 23:00 03:00 07:00 Temp 98.7 98.2 98.2 98.7 98.2 98.2 Pulse 80 80 72 Resp 18 18 18 B/P (MAP) 173/58 (96) 175/71 (105) 149/63 (91) Pulse Ox 93 96 95 O2 Delivery Room Air Room Air Room Air Intake and Output 11/24/18 11/24/18 11/25/18 14:59 22:59 06:59 Intake Total 750 ml 400 ml Balance 750 ml 400 ml DEVON CARRILLO MD Nov 25, 2018 08:31
[2018-11-25] MEDS: PANTOPRAZOLE IV PUSH 40 MG VIAL. IVP SCH (08:53)
[2018-11-25] MEDS: CIPROFLOXACIN 200MG PREMIX 100 ML IV SCH ×2 (08:55→21:17)
[2018-11-25] MEDS: ASPIRIN 325 MG TABLET PO SCH ×2 (08:57→21:17)
[2018-11-25] MEDS: LACTOBACILLUS RHAMNOSUS GG 1 CAPSULE. PO SCH ×2 (08:58→21:17)
[2018-11-25] MEDS: MELOXICAM 7.5 MG TABLET PO SCH (09:00)
[2018-11-25] MEDS: CHOLECALCIFEROL (VITAMIN D3) 1,000 UNIT TABLET PO SCH (09:00)
[2018-11-25] MEDS: ENOXAPARIN 40 MG/0.4 ML SYRINGE. SQ SCH (09:01)
[2018-11-25 11:00] VITALS: BP 156/57
--- NOTE | 2018-11-25 13:38 | PDOC ---
G I PROGRESS NOTE Subjective Says better. Still some dyspeptic issues, though much less. LLQ pain gone. Physical Exam Lungs clear. RRR Abdomen soft, not tender nor distended. Review of Relevant I have reviewed the following items lynn (where applicable) has been applied. Labs Laboratory Tests Test 11/24/18 04:55 White Blood Count 9.5 x10^3/uL (4.0-11.0) Red Blood Count 3.62 x10^6/uL (3.50-5.40) Hemoglobin 11.7 g/dL (12.0-15.5) Hematocrit 33.6 % (36.0-47.0) Mean Corpuscular Volume 93 fL (79-100) Mean Corpuscular Hemoglobin 32 pg (25-35) Mean Corpuscular Hemoglobin Concent 35 g/dL (31-37) Red Cell Distribution Width 12.4 % (11.5-14.5) Platelet Count 338 x10^3/uL (140-400) Neutrophils (%) (Auto) 63 % (31-73) Lymphocytes (%) (Auto) 21 % (24-48) Monocytes (%) (Auto) 10 % (0-9) Eosinophils (%) (Auto) 5 % (0-3) Basophils (%) (Auto) 1 % (0-3) Neutrophils # (Auto) 6.0 x10^3/uL (1.8-7.7) Lymphocytes # (Auto) 2.0 x10^3/uL (1.0-4.8) Monocytes # (Auto) 0.9 x10^3/uL (0.0-1.1) Eosinophils # (Auto) 0.5 x10^3/uL (0.0-0.7) Basophils # (Auto) 0.1 x10^3/uL (0.0-0.2) Sodium Level 143 mmol/L (136-145) Potassium Level 3.6 mmol/L (3.5-5.1) Chloride Level 108 mmol/L (98-107) Carbon Dioxide Level 26 mmol/L (21-32) Anion Gap 9 (6-14) Blood Urea Nitrogen 6 mg/dL (7-20) Creatinine 0.7 mg/dL (0.6-1.0) Estimated GFR (Cockcroft-Gault) 80.5 BUN/Creatinine Ratio 9 (6-20) Glucose Level 109 mg/dL (70-99) Calcium Level 8.8 mg/dL (8.5-10.1) Total Bilirubin 0.5 mg/dL (0.2-1.0) Aspartate Amino Transf (AST/SGOT) 18 U/L (15-37) Alanine Aminotransferase (ALT/SGPT) 20 U/L (14-59) Alkaline Phosphatase 81 U/L (46-116) Total Protein 6.5 g/dL (6.4-8.2) Albumin 2.8 g/dL (3.4-5.0) Albumin/Globulin Ratio 0.8 (1.0-1.7) Microbiology 11/23/18 Stool Culture - Final, Resulted 11/23/18 Stool Culture Result 1 (JOSHUA) - Final, Resulted 11/23/18 Campylobacter Antigen Assay, Resulted Pending 11/23/18 Campylobactor Result 1, Resulted Pending 11/23/18 Shiga Toxin Test, Resulted Pending Vitals/I & O Vital Sign - Last 24 Hours 11/24/18 11/24/18 11/24/18 11/24/18 15:00 19:00 19:45 23:00 Temp 98.6 98.8 98.7 98.6 98.8 98.7 Pulse 77 78 80 Resp 16 18 18 B/P (MAP) 149/62 (91) 155/60 (91) 173/58 (96) Pulse Ox 96 97 93 O2 Delivery Room Air Room Air Room Air Room Air 11/25/18 11/25/18 11/25/18 11/25/18 03:00 07:00 08:00 11:00 Temp 98.2 98.2 98.7 98.2 98.2 98.7 Pulse 80 72 73 Resp 18 18 18 B/P (MAP) 175/71 (105) 149/63 (91) 156/57 (90) Pulse Ox 96 95 97 O2 Delivery Room Air Room Air Room Air Room Air Intake and Output 11/24/18 11/24/18 11/25/18 15:00 23:00 07:00 Intake Total 750 ml 400 ml Balance 750 ml 400 ml Problem List Problems Medical Problems: (1) Diverticulitis large intestine Status: Acute Assessment N, V, dyspepsia; historicallly may have been opiod-provoked. Diverticulitis better. Plan of Care: Continue current Tx, Mgmt Plan of Care Note Try advanace diet some. PO PPI. RAUL ROMERO MD Nov 25, 2018 13:38
[2018-11-25] MEDS: amLODIPine BESYLATE 5 MG TABLET PO SCH (16:03)
[2018-11-25] MEDS ORDERED: PANTOPRAZOLE IV PUSH 40 MG VIAL. IVP SCH (16:30)
[2018-11-25 19:00] VITALS: BP 124/55
[2018-11-25 23:00] VITALS: BP 136/61
[2018-11-26 03:00] VITALS: BP 157/50
[2018-11-26 07:00] VITALS: BP 143/47
[2018-11-26 07:51] LABS: BASO # 0.1 x10^3/uL (0.0-0.2); BASO % 1 % (0-3); EOS # 0.7 x10^3/uL (0.0-0.7); EOS % 8 % (0-3); HEMATOCRIT 31.8 % (36.0-47.0); HEMOGLOBIN 11.1 g/dL (12.0-15.5); LYMPH # 1.9 x10^3/uL (1.0-4.8); LYMPH % 23 % (24-48); MEAN CORPUSCULAR HEMOGLOBIN 32 pg (25-35); MEAN CORPUSCULAR HGB CONC 35 g/dL (31-37); MEAN CORPUSCULAR VOLUME 92 fL (79-100); MONO # 0.7 x10^3/uL (0.0-1.1); MONO % 8 % (0-9); NEUT % 60 % (31-73); PLATELET COUNT 341 x10^3/uL (140-400); RED BLOOD COUNT 3.44 x10^6/uL (3.50-5.40); RED CELL DISTRIBUTION WIDTH 12.4 % (11.5-14.5); WHITE BLOOD COUNT 8.4 x10^3/uL (4.0-11.0)
[2018-11-26 08:18] LABS: ALBUMIN 2.6 g/dL (3.4-5.0); ALBUMIN/GLOBULIN RATIO 0.8 (1.0-1.7); CALCIUM 8.4 mg/dL (8.5-10.1); CREATININE 0.7 mg/dL (0.6-1.0); GFR 80.5; POTASSIUM 3.3 mmol/L (3.5-5.1); TOTAL BILIRUBIN 0.4 mg/dL (0.2-1.0)
--- NOTE | 2018-11-26 08:20 | PDOC ---
PROGRESS NOTES Chief Complaint Chief Complaint Assessment/Plan Diverticulitis large intestine, acute - mild fat stranding at the descending/sigmoid colon junction in the area of diverticulosis which may represent a very mild diverticulitis. MODERATE PROTEIN-CALORIC MALNUTRITION Nausea and vomiting Dyspepsia Left knee OA s/p TKA on 11/14/18 gi consult IV ANTIBIOTICS , CIPRO, FLAGYL DVT PROPHYLAXIS IV PROTONIX HOME MEDS CLEAR LIQ DIET advance diet 27 MIN PT EXAM, CHART REVIEW, > 50% OF TIME SPENT WITH EXAM, CHART REVIEW, PT CARE COORDINATION History of Present Illness History of Present Illness Admitted with vomiting/reflux, LLQ pain, change in bowel habits she underwent a left TKA 11/14/18. She has been taking oxycodone every 4 hours, states that since the surgery she has been having some gradually worsening epigastric pain, described as a burning. She has had several episodes of vomiting. She has not had any diarrhea, and reports that she has been having regular bowel movements throughout this time, including several normal bowel movements 11/22. She denies any bloody emesis or stools. Abdomen feeling better today. No SOB or CP. Her left knee has swollen a bit and the battery on her vac has been removed. Vitals Vitals Vital Signs Date Time Temp Pulse Resp B/P (MAP) Pulse Ox O2 Delivery O2 Flow Rate FiO2 11/26/18 07:00 98.3 73 18 143/47 (79) 98 Room Air 98.3 Physical Exam General: Alert, Oriented X3, Cooperative, No acute distress Heart: Regular rate, Normal S1 Lungs: Clear Abdomen: Soft Extremities: No cyanosis, No edema Labs LABS Laboratory Tests Test 11/26/18 06:44 White Blood Count 8.4 x10^3/uL (4.0-11.0) Red Blood Count 3.44 x10^6/uL (3.50-5.40) Hemoglobin 11.1 g/dL (12.0-15.5) Hematocrit 31.8 % (36.0-47.0) Mean Corpuscular Volume 92 fL (79-100) Mean Corpuscular Hemoglobin 32 pg (25-35) Mean Corpuscular Hemoglobin Concent 35 g/dL (31-37) Red Cell Distribution Width 12.4 % (11.5-14.5) Platelet Count 341 x10^3/uL (140-400) Neutrophils (%) (Auto) 60 % (31-73) Lymphocytes (%) (Auto) 23 % (24-48) Monocytes (%) (Auto) 8 % (0-9) Eosinophils (%) (Auto) 8 % (0-3) Basophils (%) (Auto) 1 % (0-3) Neutrophils # (Auto) 5.0 x10^3/uL (1.8-7.7) Lymphocytes # (Auto) 1.9 x10^3/uL (1.0-4.8) Monocytes # (Auto) 0.7 x10^3/uL (0.0-1.1) Eosinophils # (Auto) 0.7 x10^3/uL (0.0-0.7) Basophils # (Auto) 0.1 x10^3/uL (0.0-0.2) Assessment and Plan Assessmemt and Plan Problems Medical Problems: (1) Diverticulitis large intestine Status: Acute (2) Nausea & vomiting Status: Acute Comment Review of Relevant I have reviewed the following items lynn (where applicable) has been applied. Labs Laboratory Tests Test 11/26/18 06:44 White Blood Count 8.4 x10^3/uL (4.0-11.0) Red Blood Count 3.44 x10^6/uL (3.50-5.40) Hemoglobin 11.1 g/dL (12.0-15.5) Hematocrit 31.8 % (36.0-47.0) Mean Corpuscular Volume 92 fL (79-100) Mean Corpuscular Hemoglobin 32 pg (25-35) Mean Corpuscular Hemoglobin Concent 35 g/dL (31-37) Red Cell Distribution Width 12.4 % (11.5-14.5) Platelet Count 341 x10^3/uL (140-400) Neutrophils (%) (Auto) 60 % (31-73) Lymphocytes (%) (Auto) 23 % (24-48) Monocytes (%) (Auto) 8 % (0-9) Eosinophils (%) (Auto) 8 % (0-3) Basophils (%) (Auto) 1 % (0-3) Neutrophils # (Auto) 5.0 x10^3/uL (1.8-7.7) Lymphocytes # (Auto) 1.9 x10^3/uL (1.0-4.8) Monocytes # (Auto) 0.7 x10^3/uL (0.0-1.1) Eosinophils # (Auto) 0.7 x10^3/uL (0.0-0.7) Basophils # (Auto) 0.1 x10^3/uL (0.0-0.2) Laboratory Tests Test 11/26/18 06:44 White Blood Count 8.4 x10^3/uL (4.0-11.0) Red Blood Count 3.44 x10^6/uL (3.50-5.40) Hemoglobin 11.1 g/dL (12.0-15.5) Hematocrit 31.8 % (36.0-47.0) Mean Corpuscular Volume 92 fL (79-100) Mean Corpuscular Hemoglobin 32 pg (25-35) Mean Corpuscular Hemoglobin Concent 35 g/dL (31-37) Red Cell Distribution Width 12.4 % (11.5-14.5) Platelet Count 341 x10^3/uL (140-400) Neutrophils (%) (Auto) 60 % (31-73) Lymphocytes (%) (Auto) 23 % (24-48) Monocytes (%) (Auto) 8 % (0-9) Eosinophils (%) (Auto) 8 % (0-3) Basophils (%) (Auto) 1 % (0-3) Neutrophils # (Auto) 5.0 x10^3/uL (1.8-7.7) Lymphocytes # (Auto) 1.9 x10^3/uL (1.0-4.8) Monocytes # (Auto) 0.7 x10^3/uL (0.0-1.1) Eosinophils # (Auto) 0.7 x10^3/uL (0.0-0.7) Basophils # (Auto) 0.1 x10^3/uL (0.0-0.2) Microbiology 11/23/18 Stool Culture - Final, Resulted 11/23/18 Stool Culture Result 1 (JOSHUA) - Final, Resulted 11/23/18 Campylobacter Antigen Assay, Resulted Pending 11/23/18 Campylobactor Result 1, Resulted Pending 11/23/18 Shiga Toxin Test - Final, Resulted Medications Current Medications Multi-Ingredient Mouthwash/Gargle (Gi Cocktail) 20 ml 1X ONCE SWSW Last administered on 11/22/18at 16:40; Start 11/22/18 at 15:45; Stop 11/22/18 at 15:55; Status DC Sodium Chloride 1,000 ml @ 100 mls/hr Q10H IV Last administered on 11/22/18at 16:40; Start 11/22/18 at 15:44; Stop 11/23/18 at 01:43; Status DC Ondansetron HCl (Zofran) 4 mg 1X ONCE IV Last administered on 11/22/18at 16:40; Start 11/22/18 at 15:45; Stop 11/22/18 at 15:55; Status DC Iohexol (Omnipaque 300 Mg/ml) 75 ml 1X ONCE IV ; Start 11/22/18 at 17:00; Stop 11/22/18 at 17:01; Status DC Info (CONTRAST GIVEN -- Rx MONITORING) 1 each PRN DAILY PRN MC SEE COMMENTS; Start 11/22/18 at 17:00; Stop 11/24/18 at 16:59; Status DC Fentanyl Citrate (Fentanyl 2ml Vial) 50 mcg 1X ONCE IV Last administered on 11/22/18at 20:19; Start 11/22/18 at 20:00; Stop 11/22/18 at 20:01; Status DC Ondansetron HCl (Zofran) 4 mg 1X ONCE IV Last administered on 11/22/18at 22:15; Start 11/22/18 at 20:00; Stop 11/22/18 at 20:01; Status DC Ciprofloxacin/ Dextrose 200 ml @ 200 mls/hr 1X ONCE IV Last administered on 11/22/18at 20:19; Start 11/22/18 at 20:00; Stop 11/22/18 at 20:59; Status DC Metronidazole 100 ml @ 100 mls/hr Q8HRS IV Last administered on 11/26/18at 06:10; Start 11/22/18 at 22:00 Ondansetron HCl (Zofran) 4 mg PRN Q8HRS PRN IV NAUSEA/VOMITING Last administered on 11/23/18at 12:17; Start 11/22/18 at 20:00; Stop 11/23/18 at 19:59; Status DC Fentanyl Citrate (Fentanyl 2ml Vial) 25 mcg PRN Q1HR PRN IV PAIN Last administered on 11/23/18at 14:43; Start 11/22/18 at 20:00; Stop 11/23/18 at 19:59; Status DC Sodium Chloride 1,000 ml @ 100 mls/hr Q10H IV Last administered on 11/23/18at 12:45; Start 11/22/18 at 20:00; Stop 11/23/18 at 19:59; Status DC Acetaminophen (Tylenol) 650 mg PRN Q4HRS PRN PO FEVER; Start 11/22/18 at 20:00; Stop 11/23/18 at 19:59; Status DC Pantoprazole Sodium (PROTONIX VIAL for IV PUSH) 40 mg BIDAC IVP Last administered on 11/25/18at 09:02; Start 11/23/18 at 16:30; Stop 11/25/18 at 13:41; Status DC Ciprofloxacin/ Dextrose 100 ml @ 100 mls/hr Q12HR IV Last administered on 11/25/18at 21:18; Start 11/23/18 at 10:00 Multi-Ingredient Mouthwash/Gargle (Gi Cocktail) 20 ml PRN QID PRN PO abd pain, 1ST CHOICE Last administered on 11/24/18at 20:47; Start 11/23/18 at 09:45 Calcium Carbonate/ Glycine (Tums) 500 mg PRN AFTMEALHC PRN PO INDIGESTION; Start 11/23/18 at 09:45 Dicyclomine HCl (Bentyl) 10 mg PRN TID PRN PO abd pain, 2ND CHOICE; Start 11/23/18 at 09:45 Acetaminophen (Tylenol) 500 mg PRN Q4HRS PRN PO FEVER/HEADACHE; Start 11/23/18 at 15:00 Aspirin (Lolis Aspirin) 325 mg BID PO Last administered on 11/25/18at 21:18; Start 11/23/18 at 21:00 Vitamin D (Vitamin D3) 1,000 unit DAILY PO Last administered on 11/25/18 09:02; Start 11/24/18 at 09:00 Meloxicam (Mobic) 15 mg DAILY PO Last administered on 11/25/18at 09:02; Start 11/24/18 at 09:00 Enoxaparin Sodium (Lovenox 40mg Syringe) 40 mg Q24H SQ Last administered on 11/25/18at 09:02; Start 11/24/18 at 09:00 Lactobacillus Rhamnosus (Culturelle) 1 cap BID PO Last administered on 11/25/18at 21:18; Start 11/23/18 at 21:00 Pantoprazole Sodium (Protonix) 40 mg DAILYAC PO ; Start 11/26/18 at 07:30 Pantoprazole Sodium (PROTONIX VIAL for IV PUSH) 40 mg BIDAC IVP Last administered on 11/25/18at 16:03; Start 11/25/18 at 16:30; Stop 11/25/18 at 16:31; Status DC Amlodipine Besylate (Norvasc) 5 mg DAILY PO Last administered on 11/25/18 16:03; Start 11/25/18 at 15:00 Active Scripts Active Percocet 5-325 Mg Tablet (Oxycodone/Acetaminophen) 1 Each Tablet 1-2 Tab PO PRN Q4HRS PRN Take 1-2 tablets by mouth every 4 hours as needed for pain. Reported Aspirin 325 Mg Tablet 1 Tab PO BID Vitamin D3 (Cholecalciferol (Vitamin D3)) 500 Unit/5 Ml Liquid 500 Unit PO DAILY Meloxicam 15 Mg Tablet 1 Tab PO DAILY Pain Relief (Acetaminophen) 500 Mg Tablet 200 Mg PO PRN PRN Vitals/I & O Vital Sign - Last 24 Hours 11/25/18 11/25/18 11/25/18 11/25/18 11:00 16:03 19:00 20:00 Temp 98.7 99.2 98.7 99.2 Pulse 73 77 82 Resp 18 18 B/P (MAP) 156/57 (90) 153/51 124/55 (78) Pulse Ox 97 96 O2 Delivery Room Air Room Air Room Air 11/25/18 11/26/18 11/26/18 23:00 03:00 07:00 Temp 99.2 98.6 98.3 99.2 98.6 98.3 Pulse 81 77 73 Resp 18 18 18 B/P (MAP) 136/61 (86) 157/50 (85) 143/47 (79) Pulse Ox 97 92 98 O2 Delivery Room Air Room Air Room Air Intake and Output 11/25/18 11/25/18 11/26/18 14:59 22:59 06:59 Intake Total 900 ml Balance 900 ml RIFFEL,CHRISTOPHER S MD Nov 26, 2018 08:20
[2018-11-26] MEDS: PANTOPRAZOLE 40 MG TABLET.DR. PO SCH (08:59)
[2018-11-26] MEDS: CIPROFLOXACIN 200MG PREMIX 100 ML IV SCH ×2 (08:59→21:15)
[2018-11-26] MEDS: MELOXICAM 7.5 MG TABLET PO SCH (09:00)
[2018-11-26] MEDS: LACTOBACILLUS RHAMNOSUS GG 1 CAPSULE. PO SCH ×2 (09:00→21:15)
[2018-11-26] MEDS: ASPIRIN 325 MG TABLET PO SCH ×2 (09:00→21:15)
[2018-11-26] MEDS: amLODIPine BESYLATE 5 MG TABLET PO SCH (09:00)
[2018-11-26] MEDS: CHOLECALCIFEROL (VITAMIN D3) 1,000 UNIT TABLET PO SCH (09:00)
[2018-11-26] MEDS: ENOXAPARIN 40 MG/0.4 ML SYRINGE. SQ SCH (09:01)
[2018-11-26 11:00] VITALS: BP 140/45
--- NOTE | 2018-11-26 12:42 | PDOC ---
Subjective: Subjective: Feels better overall. Tolerating full liquids and would like to try "the next level." Stools are loose - "not just water anymore." Objective: Vital Signs: Vital Signs Date Time Temp Pulse Resp B/P (MAP) Pulse Ox O2 Delivery O2 Flow Rate FiO2 11/26/18 11:00 97.9 67 17 140/45 (76) 95 Room Air 97.9 Labs: Laboratory Tests Test 11/26/18 06:44 11/26/18 06:45 White Blood Count 8.4 x10^3/uL Red Blood Count 3.44 x10^6/uL Hemoglobin 11.1 g/dL Hematocrit 31.8 % Mean Corpuscular Volume 92 fL Mean Corpuscular Hemoglobin 32 pg Mean Corpuscular Hemoglobin Concent 35 g/dL Red Cell Distribution Width 12.4 % Platelet Count 341 x10^3/uL Neutrophils (%) (Auto) 60 % Lymphocytes (%) (Auto) 23 % Monocytes (%) (Auto) 8 % Eosinophils (%) (Auto) 8 % Basophils (%) (Auto) 1 % Neutrophils # (Auto) 5.0 x10^3/uL Lymphocytes # (Auto) 1.9 x10^3/uL Monocytes # (Auto) 0.7 x10^3/uL Eosinophils # (Auto) 0.7 x10^3/uL Basophils # (Auto) 0.1 x10^3/uL Sodium Level 144 mmol/L Potassium Level 3.3 mmol/L Chloride Level 108 mmol/L Carbon Dioxide Level 27 mmol/L Anion Gap 9 Blood Urea Nitrogen 5 mg/dL Creatinine 0.7 mg/dL Estimated GFR (Cockcroft-Gault) 80.5 BUN/Creatinine Ratio 7 Glucose Level 100 mg/dL Calcium Level 8.4 mg/dL Total Bilirubin 0.4 mg/dL Aspartate Amino Transf (AST/SGOT) 20 U/L Alanine Aminotransferase (ALT/SGPT) 20 U/L Alkaline Phosphatase 73 U/L Total Protein 6.0 g/dL Albumin 2.6 g/dL Albumin/Globulin Ratio 0.8 C Diff negative. ORDERED: STOOL CULT Procedure Result ------- ----- STOOL CULTURE Final Final report STOOL CULT RES 1 Final Comment No Salmonella or Shigella recovered. Performed at: - [facility] [address] [place] [address] [address], [place], [place] [id number] Pit Supervisor: FAROOQ Otero MD, Phone: [phone] CAMPY PENDING CAMPY RES 1 PENDING SHIGA TOXIN Final Negative Negative PE: GEN: NAD - up to chair watching tv and talking on the phone LUNGS: room air HEART: RRR ABD: mild LLQ and epigastric discomfort, NASB, soft NEURO/PSYCH: A & O �3 A/P: Epigastric pain, acid reflux, LLQ pain Descending/sigmoid colon diverticulitis NSAID use -- Continue PPI and atbx. Try GI soft for dinner. LISSETH THACKER Nov 26, 2018 12:42
--- NOTE | 2018-11-26 13:48 | NUR ---
SW following pt for anticipated dc needs. Chart reviewed and discussed with RN. Pt lives at home and had undergone left total knee arthroplasty last week. Pt was discharged home with [facility]. RN had requested for PT/OT order. SW will continue to follow.
[2018-11-26] MEDS ORDERED: POTASSIUM CHLORIDE 20 MEQ TABLET.ER. PO ONE (14:30)
[2018-11-26 15:00] VITALS: BP 141/53
[2018-11-26] MEDS: POTASSIUM CHLORIDE 10MEQ 100 ML IV SCH ×2 (16:20→19:49)
[2018-11-26 19:00] VITALS: BP 137/54
[2018-11-26 23:00] VITALS: BP 143/53
[2018-11-27 03:00] VITALS: BP 151/58
[2018-11-27 07:00] VITALS: BP 138/69
[2018-11-27] MEDS: PANTOPRAZOLE 40 MG TABLET.DR. PO SCH (07:34)
--- NOTE | 2018-11-27 08:31 | PDOC ---
PROGRESS NOTES Chief Complaint Chief Complaint Assessment/Plan Diverticulitis large intestine, acute - mild fat stranding at the descending/sigmoid colon junction in the area of diverticulosis which may represent a very mild diverticulitis. MODERATE PROTEIN-CALORIC MALNUTRITION Nausea and vomiting Dyspepsia Left knee OA s/p TKA on 11/14/18 gi consult IV ANTIBIOTICS , CIPRO, FLAGYL DVT PROPHYLAXIS IV PROTONIX HOME MEDS CLEAR LIQ DIET advance diet 27 MIN PT EXAM, CHART REVIEW, > 50% OF TIME SPENT WITH EXAM, CHART REVIEW, PT CARE COORDINATION History of Present Illness History of Present Illness Admitted with vomiting/reflux, LLQ pain, change in bowel habits she underwent a left TKA 11/14/18. She has been taking oxycodone every 4 hours, states that since the surgery she has been having some gradually worsening epigastric pain, described as a burning. She has had several episodes of vomiting. She has not had any diarrhea, and reports that she has been having regular bowel movements throughout this time, including several normal bowel movements 11/22. She denies any bloody emesis or stools. Abdomen feeling better today. No SOB or CP. Her left knee has swollen a bit and the battery on her vac has been removed. Doing much better - ate regular food for breakfast - had a little of that "funny feeling" in her stomach after but much better overall. No LLQ pain. Had a normal, formed stool. Vitals Vitals Vital Signs Date Time Temp Pulse Resp B/P (MAP) Pulse Ox O2 Delivery O2 Flow Rate FiO2 11/27/18 07:00 98.5 52 17 138/69 (92) 93 Room Air 98.5 Physical Exam General: Alert, Oriented X3, Cooperative, No acute distress Heart: Regular rate, Normal S1 Lungs: Clear Abdomen: Soft Extremities: No cyanosis, No edema Assessment and Plan Assessmemt and Plan Problems Medical Problems: (1) Diverticulitis large intestine Status: Acute (2) Nausea & vomiting Status: Acute Comment Review of Relevant I have reviewed the following items lynn (where applicable) has been applied. Labs Laboratory Tests Test 11/26/18 06:44 11/26/18 06:45 White Blood Count 8.4 x10^3/uL (4.0-11.0) Red Blood Count 3.44 x10^6/uL (3.50-5.40) Hemoglobin 11.1 g/dL (12.0-15.5) Hematocrit 31.8 % (36.0-47.0) Mean Corpuscular Volume 92 fL (79-100) Mean Corpuscular Hemoglobin 32 pg (25-35) Mean Corpuscular Hemoglobin Concent 35 g/dL (31-37) Red Cell Distribution Width 12.4 % (11.5-14.5) Platelet Count 341 x10^3/uL (140-400) Neutrophils (%) (Auto) 60 % (31-73) Lymphocytes (%) (Auto) 23 % (24-48) Monocytes (%) (Auto) 8 % (0-9) Eosinophils (%) (Auto) 8 % (0-3) Basophils (%) (Auto) 1 % (0-3) Neutrophils # (Auto) 5.0 x10^3/uL (1.8-7.7) Lymphocytes # (Auto) 1.9 x10^3/uL (1.0-4.8) Monocytes # (Auto) 0.7 x10^3/uL (0.0-1.1) Eosinophils # (Auto) 0.7 x10^3/uL (0.0-0.7) Basophils # (Auto) 0.1 x10^3/uL (0.0-0.2) Sodium Level 144 mmol/L (136-145) Potassium Level 3.3 mmol/L (3.5-5.1) Chloride Level 108 mmol/L (98-107) Carbon Dioxide Level 27 mmol/L (21-32) Anion Gap 9 (6-14) Blood Urea Nitrogen 5 mg/dL (7-20) Creatinine 0.7 mg/dL (0.6-1.0) Estimated GFR (Cockcroft-Gault) 80.5 BUN/Creatinine Ratio 7 (6-20) Glucose Level 100 mg/dL (70-99) Calcium Level 8.4 mg/dL (8.5-10.1) Magnesium Level 1.8 mg/dL (1.8-2.4) Total Bilirubin 0.4 mg/dL (0.2-1.0) Aspartate Amino Transf (AST/SGOT) 20 U/L (15-37) Alanine Aminotransferase (ALT/SGPT) 20 U/L (14-59) Alkaline Phosphatase 73 U/L (46-116) Total Protein 6.0 g/dL (6.4-8.2) Albumin 2.6 g/dL (3.4-5.0) Albumin/Globulin Ratio 0.8 (1.0-1.7) Microbiology 11/23/18 Stool Culture - Final, Resulted 11/23/18 Stool Culture Result 1 (JOSHUA) - Final, Resulted 11/23/18 Campylobacter Antigen Assay, Resulted Pending 11/23/18 Campylobactor Result 1, Resulted Pending 11/23/18 Shiga Toxin Test - Final, Resulted Medications Current Medications Multi-Ingredient Mouthwash/Gargle (Gi Cocktail) 20 ml 1X ONCE SWSW Last administered on 11/22/18at 16:40; Start 11/22/18 at 15:45; Stop 11/22/18 at 15:55; Status DC Sodium Chloride 1,000 ml @ 100 mls/hr Q10H IV Last administered on 11/22/18at 1 6:40; Start 11/22/18 at 15:44; Stop 11/23/18 at 01:43; Status DC Ondansetron HCl (Zofran) 4 mg 1X ONCE IV Last administered on 11/22/18at 16:40; Start 11/22/18 at 15:45; Stop 11/22/18 at 15:55; Status DC Iohexol (Omnipaque 300 Mg/ml) 75 ml 1X ONCE IV ; Start 11/22/18 at 17:00; Stop 11/22/18 at 17:01; Status DC Info (CONTRAST GIVEN -- Rx MONITORING) 1 each PRN DAILY PRN MC SEE COMMENTS; Start 11/22/18 at 17:00; Stop 11/24/18 at 16:59; Status DC Fentanyl Citrate (Fentanyl 2ml Vial) 50 mcg 1X ONCE IV Last administered on 11/22/18at 20:19; Start 11/22/18 at 20:00; Stop 11/22/18 at 20:01; Status DC Ondansetron HCl (Zofran) 4 mg 1X ONCE IV Last administered on 11/22/18at 22:15; Start 11/22/18 at 20:00; Stop 11/22/18 at 20:01; Status DC Ciprofloxacin/ Dextrose 200 ml @ 200 mls/hr 1X ONCE IV Last administered on 11/22/18at 20:19; Start 11/22/18 at 20:00; Stop 11/22/18 at 20:59; Status DC Metronidazole 100 ml @ 100 mls/hr Q8HRS IV Last administered on 11/27/18at 06:23; Start 11/22/18 at 22:00 Ondansetron HCl (Zofran) 4 mg PRN Q8HRS PRN IV NAUSEA/VOMITING Last administered on 11/23/18at 12:17; Start 11/22/18 at 20:00; Stop 11/23/18 at 19:59; Status DC Fentanyl Citrate (Fentanyl 2ml Vial) 25 mcg PRN Q1HR PRN IV PAIN Last administered on 11/23/18at 14:43; Start 11/22/18 at 20:00; Stop 11/23/18 at 19:59; Status DC Sodium Chloride 1,000 ml @ 100 mls/hr Q10H IV Last administered on 11/23/18at 12:45; Start 11/22/18 at 20:00; Stop 11/23/18 at 19:59; Status DC Acetaminophen (Tylenol) 650 mg PRN Q4HRS PRN PO FEVER; Start 11/22/18 at 20:00; Stop 11/23/18 at 19:59; Status DC Pantoprazole Sodium (PROTONIX VIAL for IV PUSH) 40 mg BIDAC IVP Last administered on 11/25/18at 09:02; Start 11/23/18 at 16:30; Stop 11/25/18 at 13:41; Status DC Ciprofloxacin/ Dextrose 100 ml @ 100 mls/hr Q12HR IV Last administered on 11/26/18at 21:16; Start 11/23/18 at 10:00 Multi-Ingredient Mouthwash/Gargle (Gi Cocktail) 20 ml PRN QID PRN PO abd pain, 1ST CHOICE Last administered on 11/24/18at 20:47; Start 11/23/18 at 09:45 Calcium Carbonate/ Glycine (Tums) 500 mg PRN AFTMEALHC PRN PO INDIGESTION; Start 11/23/18 at 09:45 Dicyclomine HCl (Bentyl) 10 mg PRN TID PRN PO abd pain, 2ND CHOICE; Start 11/23/18 at 09:45 Acetaminophen (Tylenol) 500 mg PRN Q4HRS PRN PO FEVER/HEADACHE; Start 11/23/18 at 15:00 Aspirin (Lolis Aspirin) 325 mg BID PO Last administered on 11/26/18 21:16; Start 11/23/18 at 21:00 Vitamin D (Vitamin D3) 1,000 unit DAILY PO Last administered on 11/26/18 09:01; Start 11/24/18 at 09:00 Meloxicam (Mobic) 15 mg DAILY PO Last administered on 11/26/18 09:01; Start 11/24/18 at 09:00 Enoxaparin Sodium (Lovenox 40mg Syringe) 40 mg Q24H SQ Last administered on 11/26/18 09:01; Start 11/24/18 at 09:00 Lactobacillus Rhamnosus (Culturelle) 1 cap BID PO Last administered on 9at 21:16; Start 11/23/18 at 21:00 Pantoprazole Sodium (Protonix) 40 mg DAILYAC PO Last administered on 11/27/18 07:35; Start 11/26/18 at 07:30 Pantoprazole Sodium (PROTONIX VIAL for IV PUSH) 40 mg BIDAC IVP Last administered on 11/25/18 16:03; Start 11/25/18 at 16:30; Stop 11/25/18 at 16:31; Status DC Amlodipine Besylate (Norvasc) 5 mg DAILY PO Last administered on 11/26/18 09:01; Start 11/25/18 at 15:00 Potassium Chloride (Klor-Con) 40 meq 1X ONCE PO Last administered on 11/26/18 14:26; Start 11/26/18 at 14:30; Stop 11/26/18 at 14:31; Status DC Potassium Chloride/Water 100 ml @ 100 mls/hr Q1H IV Last administered on 19:49; Start 11/26/18 at 15:00; Stop 11/26/18 at 16:59; Status DC Active Scripts Active Percocet 5-325 Mg Tablet (Oxycodone/Acetaminophen) 1 Each Tablet 1-2 Tab PO PRN Q4HRS PRN Take 1-2 tablets by mouth every 4 hours as needed for pain. Reported Aspirin 325 Mg Tablet 1 Tab PO BID Vitamin D3 (Cholecalciferol (Vitamin D3)) 500 Unit/5 Ml Liquid 500 Unit PO DAILY Meloxicam 15 Mg Tablet 1 Tab PO DAILY Pain Relief (Acetaminophen) 500 Mg Tablet 200 Mg PO PRN PRN Vitals/I & O Vital Sign - Last 24 Hours 11/26/18 11/26/18 11/26/18 11/26/18 09:01 11:00 15:00 19:00 Temp 97.9 98.2 99.0 97.9 98.2 99.0 Pulse 73 67 72 77 Resp 20 B/P (MAP) 143/47 140/45 (76) 141/53 (82) 137/54 (81) Pulse Ox 95 97 95 O2 Delivery Room Air Room Air 11/26/18 11/26/18 11/27/18 11/27/18 20:00 23:00 03:00 07:00 Temp 98.9 98.9 98.5 98.9 98.9 98.5 Pulse 77 78 52 Resp B/P (MAP) 143/53 (83) 151/58 (89) 138/69 (92) Pulse Ox 95 94 93 O2 Delivery Room Air Room Air Room Air Room Air Intake and Output 11/26/18 11/26/18 11/27/18 14:59 22:59 06:59 Intake Total 200 ml 300 ml 440 ml Balance 200 ml 300 ml 440 ml PATRICIA FITZGERALD MD Nov 27, 2018 08:31
[2018-11-27] MEDS: CIPROFLOXACIN 200MG PREMIX 100 ML IV SCH (09:39)
[2018-11-27] MEDS: ENOXAPARIN 40 MG/0.4 ML SYRINGE. SQ SCH (09:39)
[2018-11-27] MEDS: MELOXICAM 7.5 MG TABLET PO SCH (09:40)
[2018-11-27] MEDS: LACTOBACILLUS RHAMNOSUS GG 1 CAPSULE. PO SCH (09:40)
[2018-11-27] MEDS: ASPIRIN 325 MG TABLET PO SCH (09:40)
[2018-11-27] MEDS: CHOLECALCIFEROL (VITAMIN D3) 1,000 UNIT TABLET PO SCH (09:41)
[2018-11-27] MEDS: amLODIPine BESYLATE 5 MG TABLET PO SCH (09:41)
[2018-11-27 09:49] LABS: BASO # 0.1 x10^3/uL (0.0-0.2); BASO % 1 % (0-3); EOS # 0.7 x10^3/uL (0.0-0.7); EOS % 9 % (0-3); HEMATOCRIT 35.7 % (36.0-47.0); HEMOGLOBIN 12.3 g/dL (12.0-15.5); LYMPH # 2.2 x10^3/uL (1.0-4.8); LYMPH % 27 % (24-48); MEAN CORPUSCULAR HEMOGLOBIN 32 pg (25-35); MEAN CORPUSCULAR HGB CONC 35 g/dL (31-37); MEAN CORPUSCULAR VOLUME 94 fL (79-100); MONO # 0.6 x10^3/uL (0.0-1.1); MONO % 8 % (0-9); NEUT # 4.5 x10^3/uL (1.8-7.7); NEUT % 56 % (31-73); PLATELET COUNT 415 x10^3/uL (140-400); RED BLOOD COUNT 3.82 x10^6/uL (3.50-5.40); RED CELL DISTRIBUTION WIDTH 12.4 % (11.5-14.5); WHITE BLOOD COUNT 8.1 x10^3/uL (4.0-11.0)
[2018-11-27 10:04] LABS: ALBUMIN 2.9 g/dL (3.4-5.0); ALBUMIN/GLOBULIN RATIO 0.8 (1.0-1.7); CREATININE 0.7 mg/dL (0.6-1.0); GFR 80.5; POTASSIUM 3.9 mmol/L (3.5-5.1); TOTAL BILIRUBIN 0.5 mg/dL (0.2-1.0); TOTAL PROTEIN 6.7 g/dL (6.4-8.2)
[2018-11-27 11:00] VITALS: BP 143/50
--- NOTE | 2018-11-27 11:25 | PDOC ---
Subjective: Subjective: Doing much better - ate regular food for breakfast - had a little of that "funny feeling" in her stomach after but much better overall. No LLQ pain. Had a normal, formed stool. Objective: Vital Signs: Vital Signs Date Time Temp Pulse Resp B/P (MAP) Pulse Ox O2 Delivery O2 Flow Rate FiO2 11/27/18 09:41 66 138/71 11/27/18 07:00 98.5 17 93 Room Air 98.5 Labs: Laboratory Tests Test 11/27/18 08:45 White Blood Count 8.1 x10^3/uL Red Blood Count 3.82 x10^6/uL Hemoglobin 12.3 g/dL Hematocrit 35.7 % Mean Corpuscular Volume 94 fL Mean Corpuscular Hemoglobin 32 pg Mean Corpuscular Hemoglobin Concent 35 g/dL Red Cell Distribution Width 12.4 % Platelet Count 415 x10^3/uL Neutrophils (%) (Auto) 56 % Lymphocytes (%) (Auto) 27 % Monocytes (%) (Auto) 8 % Eosinophils (%) (Auto) 9 % Basophils (%) (Auto) 1 % Neutrophils # (Auto) 4.5 x10^3/uL Lymphocytes # (Auto) 2.2 x10^3/uL Monocytes # (Auto) 0.6 x10^3/uL Eosinophils # (Auto) 0.7 x10^3/uL Basophils # (Auto) 0.1 x10^3/uL Sodium Level 141 mmol/L Potassium Level 3.9 mmol/L Chloride Level 105 mmol/L Carbon Dioxide Level 27 mmol/L Anion Gap 9 Blood Urea Nitrogen 6 mg/dL Creatinine 0.7 mg/dL Estimated GFR (Cockcroft-Gault) 80.5 BUN/Creatinine Ratio 9 Glucose Level 139 mg/dL Calcium Level 9.0 mg/dL Total Bilirubin 0.5 mg/dL Aspartate Amino Transf (AST/SGOT) 34 U/L Alanine Aminotransferase (ALT/SGPT) 24 U/L Alkaline Phosphatase 85 U/L Total Protein 6.7 g/dL Albumin 2.9 g/dL Albumin/Globulin Ratio 0.8 PE: GEN: NAD - in recliner LUNGS: CTAB HEART: RRR ABD: S/ND/NT NEURO/PSYCH: A & O �3 A/P: Epigastric pain, acid reflux, LLQ pain - improved Descending/sigmoid colon diverticulitis Recent knee revision -- GI issues resolving. DC per primary on PO atbx. LISSETH THACKER Nov 27, 2018 11:25
--- NOTE | 2018-11-27 12:23 | PDOC3 ---
Discharge Summary Visit Information Date of Admission: Nov 22, 2018 Date of Discharge: Nov 27, 2018 Admitting Diagnosis: Diverticulitis Final Diagnosis Problems Medical Problems: (1) Diverticulitis large intestine Status: Acute (2) Nausea & vomiting Status: Acute Brief Hospital Course Allergies Allergies Coded Allergies Type Severity Reaction Last Updated Verified Sulfa (Sulfonamide Antibiotics) Allergy Intermediate rash 11/13/18 Yes strawberry Allergy Intermediate Hives 11/13/18 Yes Vital Signs Vital Signs Date Time Temp Pulse Resp B/P (MAP) Pulse Ox O2 Delivery O2 Flow Rate FiO2 11/27/18 09:41 66 138/71 11/27/18 07:00 98.5 17 93 Room Air 98.5 Lab Results Laboratory Tests Test 11/26/18 06:44 11/26/18 06:45 11/27/18 08:45 White Blood Count 8.4 x10^3/uL (4.0-11.0) 8.1 x10^3/uL (4.0-11.0) Red Blood Count 3.44 x10^6/uL (3.50-5.40) 3.82 x10^6/uL (3.50-5.40) Hemoglobin 11.1 g/dL (12.0-15.5) 12.3 g/dL (12.0-15.5) Hematocrit 31.8 % (36.0-47.0) 35.7 % (36.0-47.0) Mean Corpuscular Volume 92 fL (79-100) 94 fL (79-100) Mean Corpuscular Hemoglobin 32 pg (25-35) 32 pg (25-35) Mean Corpuscular Hemoglobin Concent 35 g/dL (31-37) 35 g/dL (31-37) Red Cell Distribution Width 12.4 % (11.5-14.5) 12.4 % (11.5-14.5) Platelet Count 341 x10^3/uL (140-400) 415 x10^3/uL (140-400) Neutrophils (%) (Auto) 60 % (31-73) 56 % (31-73) Lymphocytes (%) (Auto) 23 % (24-48) 27 % (24-48) Monocytes (%) (Auto) 8 % (0-9) 8 % (0-9) Eosinophils (%) (Auto) 8 % (0-3) 9 % (0-3) Basophils (%) (Auto) 1 % (0-3) 1 % (0-3) Neutrophils # (Auto) 5.0 x10^3/uL (1.8-7.7) 4.5 x10^3/uL (1.8-7.7) Lymphocytes # (Auto) 1.9 x10^3/uL (1.0-4.8) 2.2 x10^3/uL (1.0-4.8) Monocytes # (Auto) 0.7 x10^3/uL (0.0-1.1) 0.6 x10^3/uL (0.0-1.1) Eosinophils # (Auto) 0.7 x10^3/uL (0.0-0.7) 0.7 x10^3/uL (0.0-0.7) Basophils # (Auto) 0.1 x10^3/uL (0.0-0.2) 0.1 x10^3/uL (0.0-0.2) Sodium Level 144 mmol/L (136-145) 141 mmol/L (136-145) Potassium Level 3.3 mmol/L (3.5-5.1) 3.9 mmol/L (3.5-5.1) Chloride Level 108 mmol/L (98-107) 105 mmol/L (98-107) Carbon Dioxide Level 27 mmol/L (21-32) 27 mmol/L (21-32) Anion Gap 9 (6-14) 9 (6-14) Blood Urea Nitrogen 5 mg/dL (7-20) 6 mg/dL (7-20) Creatinine 0.7 mg/dL (0.6-1.0) 0.7 mg/dL (0.6-1.0) Estimated GFR (Cockcroft-Gault) 80.5 80.5 BUN/Creatinine Ratio 7 (6-20) 9 (6-20) Glucose Level 100 mg/dL (70-99) 139 mg/dL (70-99) Calcium Level 8.4 mg/dL (8.5-10.1) 9.0 mg/dL (8.5-10.1) Magnesium Level 1.8 mg/dL (1.8-2.4) Total Bilirubin 0.4 mg/dL (0.2-1.0) 0.5 mg/dL (0.2-1.0) Aspartate Amino Transf (AST/SGOT) 20 U/L (15-37) 34 U/L (15-37) Alanine Aminotransferase (ALT/SGPT) 20 U/L (14-59) 24 U/L (14-59) Alkaline Phosphatase 73 U/L (46-116) 85 U/L (46-116) Total Protein 6.0 g/dL (6.4-8.2) 6.7 g/dL (6.4-8.2) Albumin 2.6 g/dL (3.4-5.0) 2.9 g/dL (3.4-5.0) Albumin/Globulin Ratio 0.8 (1.0-1.7) 0.8 (1.0-1.7) Laboratory Tests Test 11/27/18 08:45 White Blood Count 8.1 x10^3/uL (4.0-11.0) Red Blood Count 3.82 x10^6/uL (3.50-5.40) Hemoglobin 12.3 g/dL (12.0-15.5) Hematocrit 35.7 % (36.0-47.0) Mean Corpuscular Volume 94 fL (79-100) Mean Corpuscular Hemoglobin 32 pg (25-35) Mean Corpuscular Hemoglobin Concent 35 g/dL (31-37) Red Cell Distribution Width 12.4 % (11.5-14.5) Platelet Count 415 x10^3/uL (140-400) Neutrophils (%) (Auto) 56 % (31-73) Lymphocytes (%) (Auto) 27 % (24-48) Monocytes (%) (Auto) 8 % (0-9) Eosinophils (%) (Auto) 9 % (0-3) Basophils (%) (Auto) 1 % (0-3) Neutrophils # (Auto) 4.5 x10^3/uL (1.8-7.7) Lymphocytes # (Auto) 2.2 x10^3/uL (1.0-4.8) Monocytes # (Auto) 0.6 x10^3/uL (0.0-1.1) Eosinophils # (Auto) 0.7 x10^3/uL (0.0-0.7) Basophils # (Auto) 0.1 x10^3/uL (0.0-0.2) Sodium Level 141 mmol/L (136-145) Potassium Level 3.9 mmol/L (3.5-5.1) Chloride Level 105 mmol/L (98-107) Carbon Dioxide Level 27 mmol/L (21-32) Anion Gap 9 (6-14) Blood Urea Nitrogen 6 mg/dL (7-20) Creatinine 0.7 mg/dL (0.6-1.0) Estimated GFR (Cockcroft-Gault) 80.5 BUN/Creatinine Ratio 9 (6-20) Glucose Level 139 mg/dL (70-99) Calcium Level 9.0 mg/dL (8.5-10.1) Total Bilirubin 0.5 mg/dL (0.2-1.0) Aspartate Amino Transf (AST/SGOT) 34 U/L (15-37) Alanine Aminotransferase (ALT/SGPT) 24 U/L (14-59) Alkaline Phosphatase 85 U/L (46-116) Total Protein 6.7 g/dL (6.4-8.2) Albumin 2.9 g/dL (3.4-5.0) Albumin/Globulin Ratio 0.8 (1.0-1.7) Brief Hospital Course Ms Campos is an 78yo F admitted with vomiting/reflux, LLQ pain, change in bowel habits she underwent a left TKA 11/14/18. She has been taking oxycodone every 4 hours, states that since the surgery she has been having some gradually worsening epigastric pain, described as a burning. She has had several episodes of vomiting. She has not had any diarrhea, and reports that she has been having regular bowel movements throughout this time, including several normal bowel movements 11/22. She denies any bloody emesis or stools. Abdomen feeling better today. No SOB or CP. Her left knee has swollen a bit and the battery on her vac has been removed. Doing much better - ate regular food for breakfast - had a little of that "funny feeling" in her stomach after but much better overall. No LLQ pain. Had a normal, formed stool. Assessment/Plan Diverticulitis large intestine, acute - mild fat stranding at the desc ending/sigmoid colon junction in the area of diverticulosis which may represent a very mild diverticulitis. MODERATE PROTEIN-CALORIC MALNUTRITION Nausea and vomiting Dyspepsia Left knee OA s/p TKA on 11/14/18 gi consult - home off antibiotics Home with home health Greater than 30 minutes spent on discharge. Discharge Information Condition at Discharge: Improved Follow Up: Weeks (2) Disposition/Orders: D/C to Home w/ HH Scheduled Aspirin (Aspirin) 325 Mg Tablet, 1 TAB PO BID for patient unsure, #30 Ref 5 (Reported) Entered as Reported by: RAJESH MARLEY on 11/23/18237 Last Taken: Unknown Dose on 11/21/181999 Last Action: Continued on 11/23/181502 by DEVON CARRILLO MD Cholecalciferol (Vitamin D3) (Vitamin D3) 500 Unit/5 Ml Liquid, 500 UNIT PO DAILY for supplement, (Reported) Entered as Reported by: RAJESH MARLEY on 11/23/18237 Last Taken: Unknown Dose on 11/21/18 0800 Last Action: Converted on 11/23/181502 by DEVON CARRILLO MD Meloxicam (Meloxicam) 15 Mg Tablet, 1 TAB PO DAILY for inflammation, #30 Ref 2 (Reported) Entered as Reported by: Lana Mccrary on 11/05/18 0913 Last Taken: Unknown Dose on 11/21/181999 Last Action: Converted on 11/23/181502 by DEVON CARRILLO MD Scheduled PRN Acetaminophen (Pain Relief) 500 Mg Tablet, 200 MG PO PRN PRN for PAIN, (Reported) Entered as Reported by: SOFIYA SHI on 07/04/18 1424 Last Action: Continued on 11/23/181502 by DEVON CARRILLO MD Oxycodone/Apap 5-325 (Percocet 5-325 Mg Tablet ) 1 Each Tablet, 1-2 TAB PO PRN Q4HRS PRN for PAIN, #50 Take 1-2 tablets by mouth every 4 hours as needed for pain. Prescribed by: ROSEANN SAMANO MD on 11/16/18 1615 Last Action: HELD on 11/23/181502 by MD LIA MCPHERSON CHRISTOPHER S MD Nov 27, 2018 12:23
[2018-11-27] MEDS ORDERED: DICY10CA3 PO (12:26)
[2018-11-27] MEDS ORDERED: PANT40TA77 PO (12:26)
[2018-11-27] MEDS ORDERED: PSYL6PAC PO (12:26)
[2018-11-27] MEDS ORDERED: LACT1CAP19 PO (12:26)
--- NOTE | 2018-11-27 12:27 | SNU/HH DC ---
DISCHARGE WITH HOME HEALTH DISCHARGE INFORMATION: Discharge Date: Nov 27, 2018 Final Diagnosis: Problems Medical Problems: (1) Diverticulitis large intestine Status: Acute (2) Nausea & vomiting Status: Acute Condition on Discharge: Stable CODE STATUS: Code Status: Full HOME HEALTH: Face to Face: I certify this patient is under my care and that I, or a nurse practitioner or physician's instruction assistant principal working with me, had a face to face encounter that meets the physician face to face encounter requirements with this patient on 11/27/18. 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 For Eval/Treatment: Yes Physical Therapy For: Evalulation/Treatment Occupational Therapy For: Evaluation/Treatment Home Health Aide For: Self-care Pt Meets Homebound Status: Unsteady balance w/ amb, POST DISCHARGE ORDERS: Activity Instructions for Disc: Activity as tolerated, Progressive ambulation Weight Bearing Status after Di: As tolerated Bathing Instructions: Shower-keep dressing dry, No Tub Bath until see DIET AFTER DISCHARGE: Regular Wound/Incision Care: Ice to area for comfort, Keep wound/cast CDI, Do not change dressing CHECKS AFTER DISCHARGE: Checks after discharge: Check blood press - daily, Check your Temp as needed TREATMENT/EQUIPMENT ORDERS: Adaptive Equipment Issued: Walker CERTIFICATION STATEMENT: Certification Statement: Certification Statement: Based on the above finding, I certify that this patient is confined to the home and needs intermittent snf care, physical therapy and/or speech therapy, or continues to need occupational therapy.~ This patient is under my care, and I have initiated the establishment of the plan of care.~ This patient will be followed by myself or a community physician who will periodically review the plan of care. Home Meds Active Scripts Psyllium Husk (KONSYL) 6 Gm Packet, 6 GM PO QHS for diverticulosis for 30 Days, #30 PKT 11 Refills Prov:PATRICIA FITZGERALD MD 11/27/18 Lactobacillus Rhamnosus Gg (CULTURELLE) 1 Each Cap.sprink, 1 CAP PO BID for Diverticulitis for 30 Days, #60 CAP Prov:PATRICIA FITZGERALD MD 11/27/18 Pantoprazole Sodium (PANTOPRAZOLE SODIUM ) 40 Mg Tablet., 40 MG PO DAILYAC for Reflux for 30 Days, #30 TAB.SR Prov:PATRICIA FITZGERALD MD 11/27/18 Dicyclomine Hcl (DICYCLOMINE HCL) 10 Mg Capsule, 10 MG PO PRN TID PRN for abd pain, 2ND CHOICE for 10 Days, #10 CAP Prov:PATRICIA FITZGERADL MD 11/27/18 Reported Medications Aspirin (ASPIRIN) 325 Mg Tablet, 1 TAB PO BID for patient unsure, #30 TAB 5 Refills 11/23/18 Cholecalciferol (Vitamin D3) (Vitamin D3) 500 Unit/5 Ml Liquid, 500 UNIT PO DAILY for supplement, LIQUID 11/23/18 Meloxicam (MELOXICAM) 15 Mg Tablet, 1 TAB PO DAILY for inflammation, #30 TAB 2 Refills 11/05/18 Acetaminophen (PAIN RELIEF) 500 Mg Tablet, 200 MG PO PRN PRN for PAIN, TAB 07/04/18 Discontinued Scripts Oxycodone/Apap 5-325 (PERCOCET 5-325 MG TABLET ) 1 Each Tablet, 1-2 TAB PO PRN Q4HRS PRN for PAIN, #50 TAB Take 1-2 tablets by mouth every 4 hours as needed for pain. Prov:ROSEANN SAMANO MD 11/16/18 PATRICIA FITZGERALD MD Nov 27, 2018 12:27
[2018-11-27 15:00] VITALS: BP 142/61
--- NOTE | 2018-11-27 16:35 | NUR ---
SW following Pt. Nurse navigator has arranged HH through [facility]. No other SW needs.
--- NOTE | 2018-11-27 18:53 | PDOC2 ---
CONSULT Date of Consult Date of Consult DATE: 11/27/18 TIME: 18:50 Reason for Consult Reason for Consult: Follow-up after knee arthroplasty revision surgery Identification/Chief Complaint Chief Complaint Follow-up left knee surgery Source Source: Chart review, Patient History of Present Illness Reason for Visit: She had revision knee surgery 2 weeks ago. She was admitted with vomiting and diarrhea but is doing better now. Past Medical History Cardiovascular: No pertinent hx Pulmonary: No pertinent hx GI: No pertinent hx Endocrine: No pertinent hx Past Surgical History Past Surgical History: Total knee replacement Family History Family History: Diabetes, Heart Disease, Hypertension, Stroke Social History # pack years ALCOHOL: none Drugs: None Current Problem List Problem List Problems Medical Problems: (1) Diverticulitis large intestine Status: Acute (2) Nausea & vomiting Status: Acute Current Medications Current Medications Current Medications Multi-Ingredient Mouthwash/Gargle (Gi Cocktail) 20 ml 1X ONCE SWSW Last administered on 11/22/18at 16:40; Start 11/22/18 at 15:45; Stop 11/22/18 at 15:55; Status DC Sodium Chloride 1,000 ml @ 100 mls/hr Q10H IV Last administered on 11/22/18at 16:40; Start 11/22/18 at 15:44; Stop 11/23/18 at 01:43; Status DC Ondansetron HCl (Zofran) 4 mg 1X ONCE IV Last administered on 11/22/18at 16:40; Start 11/22/18 at 15:45; Stop 11/22/18 at 15:55; Status DC Iohexol (Omnipaque 300 Mg/ml) 75 ml 1X ONCE IV ; Start 11/22/18 at 17:00; Stop 11/22/18 at 17:01; Status DC Info (CONTRAST GIVEN -- Rx MONITORING) 1 each PRN DAILY PRN MC SEE COMMENTS; Start 11/22/18 at 17:00; Stop 11/24/18 at 16:59; Status DC Fentanyl Citrate (Fentanyl 2ml Vial) 50 mcg 1X ONCE IV Last administered on 11/22/18at 20:19; Start 11/22/18 at 20:00; Stop 11/22/18 at 20:01; Status DC Ondansetron HCl (Zofran) 4 mg 1X ONCE IV Last administered on 11/22/18at 22:15; Start 11/22/18 at 20:00; Stop 11/22/18 at 20:01; Status DC Ciprofloxacin/ Dextrose 200 ml @ 200 mls/hr 1X ONCE IV Last administered on 11/22/18at 20:19; Start 11/22/18 at 20:00; Stop 11/22/18 at 20:59; Status DC Metronidazole 100 ml @ 100 mls/hr Q8HRS IV Last administered on 11/27/18at 14:54; Start 11/22/18 at 22:00 Ondansetron HCl (Zofran) 4 mg PRN Q8HRS PRN IV NAUSEA/VOMITING Last administered on 11/23/18at 12:17; Start 11/22/18 at 20:00; Stop 11/23/18 at 19:59; Status DC Fentanyl Citrate (Fentanyl 2ml Vial) 25 mcg PRN Q1HR PRN IV PAIN Last admin istered on 11/23/18at 14:43; Start 11/22/18 at 20:00; Stop 11/23/18 at 19:59; Status DC Sodium Chloride 1,000 ml @ 100 mls/hr Q10H IV Last administered on 11/23/18at 12:45; Start 11/22/18 at 20:00; Stop 11/23/18 at 19:59; Status DC Acetaminophen (Tylenol) 650 mg PRN Q4HRS PRN PO FEVER; Start 11/22/18 at 20:00; Stop 11/23/18 at 19:59; Status DC Pantoprazole Sodium (PROTONIX VIAL for IV PUSH) 40 mg BIDAC IVP Last administered on 11/25/18at 09:02; Start 11/23/18 at 16:30; Stop 11/25/18 at 13:41; Status DC Ciprofloxacin/ Dextrose 100 ml @ 100 mls/hr Q12HR IV Last administered on 11/27/18at 09:41; Start 11/23/18 at 10:00 Multi-Ingredient Mouthwash/Gargle (Gi Cocktail) 20 ml PRN QID PRN PO abd pain, 1ST CHOICE Last administered on 11/24/18at 20:47; Start 11/23/18 at 09:45 Calcium Carbonate/ Glycine (Tums) 500 mg PRN AFTMEALHC PRN PO INDIGESTION; Start 11/23/18 at 09:45 Dicyclomine HCl (Bentyl) 10 mg PRN TID PRN PO abd pain, 2ND CHOICE; Start 11/23/18 at 09:45 Acetaminophen (Tylenol) 500 mg PRN Q4HRS PRN PO FEVER/HEADACHE; Start 11/23/18 at 15:00 Aspirin (Lolis Aspirin) 325 mg BID PO Last administered on 11/27/18 09:41; Start 11/23/18 at 21:00 Vitamin D (Vitamin D3) 1,000 unit DAILY PO Last administered on 11/27/18 09:41; Start 11/24/18 at 09:00 Meloxicam (Mobic) 15 mg DAILY PO Last administered on 11/27/18 09:41; Start 11/24/18 at 09:00 Enoxaparin Sodium (Lovenox 40mg Syringe) 40 mg Q24H SQ Last administered on 11/27/18 09:41; Start 11/24/18 at 09:00 Lactobacillus Rhamnosus (Culturelle) 1 cap BID PO Last administered on 11/27/18 09:41; Start 11/23/18 at 21:00 Pantoprazole Sodium (Protonix) 40 mg DAILYAC PO Last administered on 11/27/18at 07:35; Start 11/26/18 at 07:30 Pantoprazole Sodium (PROTONIX VIAL for IV PUSH) 40 mg BIDAC IVP Last administered on 11/25/18 16:03; Start 11/25/18 at 16:30; Stop 11/25/18 at 16:31; Status DC Amlodipine Besylate (Norvasc) 5 mg DAILY PO Last administered on 11/27/18 09:41; Start 11/25/18 at 15:00 Potassium Chloride (Klor-Con) 40 meq 1X ONCE PO Last administered on 11/26/18 14:26; Start 11/26/18 at 14:30; Stop 11/26/18 at 14:31; Status DC Potassium Chloride/Water 100 ml @ 100 mls/hr Q1H IV Last administered on 11/26/18at 19:49; Start 11/26/18 at 15:00; Stop 11/26/18 at 16:59; Status DC Active Scripts Active Konsyl (Psyllium Husk) 6 Gm Packet 6 Gm PO QHS 30 Days Culturelle (Lactobacillus Rhamnosus Gg) 1 Each Cap.sprink 1 Cap PO BID 30 Days Pantoprazole Sodium (Pantoprazole Sodium) 40 Mg Tablet.dr 40 Mg PO DAILYAC 30 Days Dicyclomine Hcl 10 Mg Capsule 10 Mg PO PRN TID PRN 10 Days Reported Aspirin 325 Mg Tablet 1 Tab PO BID Vitamin D3 (Cholecalciferol (Vitamin D3)) 500 Unit/5 Ml Liquid 500 Unit PO DAILY Meloxicam 15 Mg Tablet 1 Tab PO DAILY Pain Relief (Acetaminophen) 500 Mg Tablet 200 Mg PO PRN PRN Allergies Allergies: Coded Allergies: Sulfa (Sulfonamide Antibiotics) (Verified Allergy, Intermediate, rash, 11/13/18) strawberry (Verified Allergy, Intermediate, Hives, 11/13/18) Physical Exam Extremities: Other (The incision is dry and intact without erythema. The SP dressing was removed today, and Steri-Strips were placed. Range of motion is 0- 100 degrees. The patient is using a walker without difficulty. The calf is soft and nontender with a negative Homans sign, and no evidence of DVT. There is no evidence of neurovascular injury.) Vitals VITALS Vital Signs Date Time Temp Pulse Resp B/P (MAP) Pulse Ox O2 Delivery O2 Flow Rate FiO2 11/27/18 15:00 98.6 71 18 142/61 (88) 95 Room Air 98.6 Labs Labs Laboratory Tests Test 11/26/18 06:44 11/26/18 06:45 11/27/18 08:45 White Blood Count 8.4 x10^3/uL (4.0-11.0) 8.1 x10^3/uL (4.0-11.0) Red Blood Count 3.44 x10^6/uL (3.50-5.40) 3.82 x10^6/uL (3.50-5.40) Hemoglobin 11.1 g/dL (12.0-15.5) 12.3 g/dL (12.0-15.5) Hematocrit 31.8 % (36.0-47.0) 35.7 % (36.0-47.0) Mean Corpuscular Volume 92 fL (79-100) 94 fL (79-100) Mean Corpuscular Hemoglobin 32 pg (25-35) 32 pg (25-35) Mean Corpuscular Hemoglobin Concent 35 g/dL (31-37) 35 g/dL (31-37) Red Cell Distribution Width 12.4 % (11.5-14.5) 12.4 % (11.5-14.5) Platelet Count 341 x10^3/uL (140-400) 415 x10^3/uL (140-400) Neutrophils (%) (Auto) 60 % (31-73) 56 % (31-73) Lymphocytes (%) (Auto) 23 % (24-48) 27 % (24-48) Monocytes (%) (Auto) 8 % (0-9) 8 % (0-9) Eosinophils (%) (Auto) 8 % (0-3) 9 % (0-3) Basophils (%) (Auto) 1 % (0-3) 1 % (0-3) Neutrophils # (Auto) 5.0 x10^3/uL (1.8-7.7) 4.5 x10^3/uL (1.8-7.7) Lymphocytes # (Auto) 1.9 x10^3/uL (1.0-4.8) 2.2 x10^3/uL (1.0-4.8) Monocytes # (Auto) 0.7 x10^3/uL (0.0-1.1) 0.6 x10^3/uL (0.0-1.1) Eosinophils # (Auto) 0.7 x10^3/uL (0.0-0.7) 0.7 x10^3/uL (0.0-0.7) Basophils # (Auto) 0.1 x10^3/uL (0.0-0.2) 0.1 x10^3/uL (0.0-0.2) Sodium Level 144 mmol/L (136-145) 141 mmol/L (136-145) Potassium Level 3.3 mmol/L (3.5-5.1) 3.9 mmol/L (3.5-5.1) Chloride Level 108 mmol/L (98-107) 105 mmol/L (98-107) Carbon Dioxide Level 27 mmol/L (21-32) 27 mmol/L (21-32) Anion Gap 9 (6-14) 9 (6-14) Blood Urea Nitrogen 5 mg/dL (7-20) 6 mg/dL (7-20) Creatinine 0.7 mg/dL (0.6-1.0) 0.7 mg/dL (0.6-1.0) Estimated GFR (Cockcroft-Gault) 80.5 80.5 BUN/Creatinine Ratio 7 (6-20) 9 (6-20) Glucose Level 100 mg/dL (70-99) 139 mg/dL (70-99) Calcium Level 8.4 mg/dL (8.5-10.1) 9.0 mg/dL (8.5-10.1) Magnesium Level 1.8 mg/dL (1.8-2.4) Total Bilirubin 0.4 mg/dL (0.2-1.0) 0.5 mg/dL (0.2-1.0) Aspartate Amino Transf (AST/SGOT) 20 U/L (15-37) 34 U/L (15-37) Alanine Aminotransferase (ALT/SGPT) 20 U/L (14-59) 24 U/L (14-59) Alkaline Phosphatase 73 U/L (46-116) 85 U/L (46-116) Total Protein 6.0 g/dL (6.4-8.2) 6.7 g/dL (6.4-8.2) Albumin 2.6 g/dL (3.4-5.0) 2.9 g/dL (3.4-5.0) Albumin/Globulin Ratio 0.8 (1.0-1.7) 0.8 (1.0-1.7) Laboratory Tests Test 11/27/18 08:45 White Blood Count 8.1 x10^3/uL (4.0-11.0) Red Blood Count 3.82 x10^6/uL (3.50-5.40) Hemoglobin 12.3 g/dL (12.0-15.5) Hematocrit 35.7 % (36.0-47.0) Mean Corpuscular Volume 94 fL (79-100) Mean Corpuscular Hemoglobin 32 pg (25-35) Mean Corpuscular Hemoglobin Concent 35 g/dL (31-37) Red Cell Distribution Width 12.4 % (11.5-14.5) Platelet Count 415 x10^3/uL (140-400) Neutrophils (%) (Auto) 56 % (31-73) Lymphocytes (%) (Auto) 27 % (24-48) Monocytes (%) (Auto) 8 % (0-9) Eosinophils (%) (Auto) 9 % (0-3) Basophils (%) (Auto) 1 % (0-3) Neutrophils # (Auto) 4.5 x10^3/uL (1.8-7.7) Lymphocytes # (Auto) 2.2 x10^3/uL (1.0-4.8) Monocytes # (Auto) 0.6 x10^3/uL (0.0-1.1) Eosinophils # (Auto) 0.7 x10^3/uL (0.0-0.7) Basophils # (Auto) 0.1 x10^3/uL (0.0-0.2) Sodium Level 141 mmol/L (136-145) Potassium Level 3.9 mmol/L (3.5-5.1) Chloride Level 105 mmol/L (98-107) Carbon Dioxide Level 27 mmol/L (21-32) Anion Gap 9 (6-14) Blood Urea Nitrogen 6 mg/dL (7-20) Creatinine 0.7 mg/dL (0.6-1.0) Estimated GFR (Cockcroft-Gault) 80.5 BUN/Creatinine Ratio 9 (6-20) Glucose Level 139 mg/dL (70-99) Calcium Level 9.0 mg/dL (8.5-10.1) Total Bilirubin 0.5 mg/dL (0.2-1.0) Aspartate Amino Transf (AST/SGOT) 34 U/L (15-37) Alanine Aminotransferase (ALT/SGPT) 24 U/L (14-59) Alkaline Phosphatase 85 U/L (46-116) Total Protein 6.7 g/dL (6.4-8.2) Albumin 2.9 g/dL (3.4-5.0) Albumin/Globulin Ratio 0.8 (1.0-1.7) Assessment/Plan Assessment/Plan She may now shower. Steri-Strips can be removed in about a week. Office follow- up in 1-2 weeks. Weight-bear as tolerated, using a walker, may progress to a cane as tolerated. ROSEANN SAMANO MD Nov 27, 2018 18:53
--- NOTE | 2018-11-27 19:54 | NUR ---
Discharge Note: PATO CLARK Discharge instructions and discharge home medications reviewed with Patient and a copy given. All questions have been answered and understanding verbalized. The following instructions and handouts were given: wound care, diverticulitis Discontinued lines and drains: peripheral line. Patient discharged to Home w/services with Family Member via Wheelchair
== END 2018-11-27 19:55 | disposition home health service (06) | DRG 392 ==
LOC: ER 15:03 → 5 SOUTH 20:03
PROVIDERS: ADMIT Family Medicine; ATTEND Family Medicine
DX: K57.32 Diverticulitis of large intestine without perforation or abscess without bleeding (principal); E44.0 Moderate protein-calorie malnutrition; K21.9 Gastro-esophageal reflux disease without esophagitis; M17.12 Unilateral primary osteoarthritis, left knee; Z96.612 Presence of left artificial shoulder joint; Z82.3 Family history of stroke; Z82.49 Family history of ischemic heart disease and other diseases of the circulatory system; Z90.49 Acquired absence of other specified parts of digestive tract; Z96.652 Presence of left artificial knee joint; Z83.3 Family history of diabetes mellitus; M19.90 Unspecified osteoarthritis, unspecified site; Z68.22 Body mass index [BMI] 22.0-22.9, adult; Z88.2 Allergy status to sulfonamides; Z88.8 Allergy status to other drugs, medicaments and biological substances
CPT/HCPCS: 36415; 74177; 80048; 80053; 81001; 83690; 83735; 84484; 85025; 85610; 87045; 87493; 93005; 96361; 96365; 96375; C9113; J0744; J1650; J2405; J3010; J3480; J3490; J7030; 97116; 97530; 97535; 99285-25; G0378

== ENCOUNTER → 2018-12-17 | Day surgery (SDC) | payer OTHER ==
[~2018-12-17] MED LIST changes: +ASPI325T8 PO; +CHOL500L2 PO; +DICY10CA3 PO; +IV RINGERS,LACTATED 1000ML 1,000 ML IV SCH; +LACT1CAP19 PO; +LIDOCAINE 2% PF 5 ML VIAL. ONE; +PANT40TA77 PO; +PROPOFOL 20 ML IV ONE; +PSYL6PAC PO
--- NOTE | 2018-12-17 15:20 | PDOC4 ---
PROCEDURE Procedure EGD/biopsies Indication: Dyspepsia Meds: per anesthesia Findings: E--Healing, probably grade A or so, reflux esophagitis at 35cm. G--Small prepyloric ulcer, 4-5mm w/o bleeding. Antral erythema, patchy, biopsies. D--Normal to second portion. Esdras. well. IMP: Small Reflux esophagitis. REC: continue PPI. Await biopsies. F/u with me in 2 weeks. Re-EGD 6-8 weeks to confirm ulcer healing. RAUL ROMERO MD Dec 17, 2018 15:20
[2018-12-17 15:47] VITALS: BP 143/76
--- NOTE | 2018-12-19 14:07 | PATHOLOGY ---
[facility] Accession Number: [id number] . 01 Material submitted: . stomach - ANTRUM . 01 Clinical history: . Dyspepsia . 02 Diagnosis: Gastric biopsies, antrum: - Chronic gastritis, moderate, with small focus of intestinal metaplasia. ([facility] 12/19/2018) [facility] 12/19/2018 0917 Local . 02 Comment: Sections of the gastric antral biopsy show congestion and moderate chronic inflammation. There is a small focus of intestinal metaplasia. A properly controlled stain for Helicobacter is negative for Helicobacter organisms. There is no evidence of malignancy. (JPM:[facility] 12/19/2018) . Special stain performed: Immunoperoxidase for Helicobacter . 02 Electronically signed: . Srinivas Sr MD, Pathologist NPI- [id number] . 01 Gross description: . The specimen is received in formalin, labeled "Ferstl, Adore, antrum BX", are two irregular segments of park soft tissue measuring 0.2 cm and is 0.3 cm in greatest dimension. Entirely submitted in A1. ([facility]; 12/18/2018) [facility] 12/18/2018 1728 Local . 02 Pathologist provided ICD-10: K29.50 . 02 CPT . 725912, [id number] Specimen Comment: A courtesy copy of this report has been sent to Specimen Comment: [phone], . Specimen Comment: Report sent to / DR ORSARIO Performed at: [address] [facility] [address], [place], [place] [id number] MD Williams Riggs MD Phone: [phone] Performed at: 02 [facility] [address], [place] [id number] MD Srinivas Sr MD Phone: [phone]
== END ==
LOC: ENDOS 14:08
PROVIDERS: ATTEND Internal Medicine Gastroenterology
DX: R10.13 Epigastric pain (principal); K29.50 Unspecified chronic gastritis without bleeding; K21.0 Gastro-esophageal reflux disease with esophagitis; K25.9 Gastric ulcer, unspecified as acute or chronic, without hemorrhage or perforation; F32.9 Major depressive disorder, single episode, unspecified; E66.9 Obesity, unspecified; Z68.34 Body mass index [BMI] 34.0-34.9, adult; Z90.49 Acquired absence of other specified parts of digestive tract; Z98.890 Other specified postprocedural states; Z87.39 Personal history of other diseases of the musculoskeletal system and connective tissue; Z96.612 Presence of left artificial shoulder joint
CPT/HCPCS: 43239; J2001; J2704; 88305; 88342

== ENCOUNTER → 2021-01-04 | Outpatient (CLI) | payer MEDICARE ==
[2018-12-17 15:47] VITALS: BP 143/76
[~2021-01-04] MED LIST changes: -DICL100G18 TP; +DICL100G54 TP; +IOHEXOL 180 MG/ML 10 ML VIAL. ONE; -IV RINGERS,LACTATED 1000ML 1,000 ML IV SCH; -LIDOCAINE 2% PF 5 ML VIAL. ONE; -PROPOFOL 20 ML IV ONE; +PSYL1PAC3 PO; -PSYL6PAC PO; +methylPREDNISolone ACETATE 40 MG/ML VIAL. ONE; +methylPREDNISolone ACETATE 80 MG/ML VIAL. ONE
--- NOTE | 2021-01-04 11:11 | PDOC ---
Progress Note - Pain Clinic Date of Service: DOS: DATE: 01/04/21 TIME: 11:08 Diagnosis: Dx: Lumbar radiculopathy with lumbar degenerative disc disease lumbar spinal stenosis Cervical radiculopathy with cervical degenerative disc disease History or Present Illness: HPI: 80-year-old female with history of pain low back bilateral lower extremities right greater than left last seen August 2018 patient did very well after treatment and reports pain is returning now in the low back and right lower extremity posterior gluteus posterior lateral thigh lateral anterior thigh anteromedial thigh medial lower leg patient is been through surgery for breast cancer as well as a left total knee replacement since her last visit reports her pain in her back is becoming more noticeable with walking standing changing position specially getting up from a seated position patient reports it wakes her from sleep at least once every 5 hours at night worse with walking standing bending stooping again getting up from a seated position patient reports the pain is a 9 to a 10 on scale 10 is worst an average and 8 at its least and is an 8 today patient ports is aching constant severe unbearable radiating shooting stabbing in the right leg patient reports no bowel or bladder incontinence. Patient reports no loss of motor function with significant fatigability of the right leg with ambulation. Physical Exam: VS: Blood pressure is 177/74 pulse 77 respirations 18 temperature is 98.3 F height is 5 foot 1 his weight is 179 pounds PE: PHYSICAL EXAMINATION: GENERAL: The patient is awake, alert, oriented, appropriate, very pleasant in demeanor HEENT: Shows normocephalic, atraumatic. Extraocular movements are intact and symmetrical. Oral cavity: Mucous membranes moist and pink. NECK: Shows anterior throat supple without palpable lymphadenopathy noted. Swallow reflex symmetrical. CHEST: Shows normal on inspection. Breath sounds are clear bilaterally, distant but no rales or rhonchi. HEART: Shows S1, S2 clear. No murmurs auscultated. ABDOMEN: Soft, nontender, nondistended, obese. No palpable organomegaly is noted. BACK: Shows spine grossly in the midline. Normal-appearing cervical lordotic curvature. There is slightly increased thoracic kyphosis, some minor flattening of the lumbar lordotic curvature. Lumbar paraspinous muscles show symmetrical on inspection, on palpation shows some moderate tenderness diffusely throughout the upper, middle and lower distribution of the paraspinous muscles bilaterally and also into the lower thoracic paraspinous musculature, firm and tender, but without specific trigger points, without radiation of pain. The patient has good rotational motion of the lumbar spine, both laterally as well as extension and flexion without significant difficulty. No tenderness over the spinous processes, sacrum or sacroiliac regions. EXTREMITIES: Lower extremities show deep tendon reflexes 1+ in the patellar and tendo calcaneus tendons. Motor exam is 4 on a scale of 5 with right dorsiflexio n, extension, quadriceps and hamstring flexion and 5/5 on the left. Peripheral pulses are 1+ posterior tibial. No peripheral edema is noted bilaterally. Lower extremities are warm and dry to touch, equal in color and appearance. SKIN: Shows warm and dry, good turgor. No edema. No sores, rashes or bruising throughout. Procedure: Procedure: Options were discussed with the patient. Patient chart reviews her current medication regimen updated current review of systems updated today as well. We will proceed with a lumbar epidural steroid injection today with fluoroscopic guidance. Risks were discussed including but not limited to: Bleeding, infection, possibility of epidural hematoma and subsequent neurological compromise, dural puncture, headaches, spinal cord and/or nerve damage, side effects of steroid medication, and poor results regarding pain control. Patient understands and wished to proceed. Patient return to clinic in approximate 2 weeks for follow-up, was counseled return appointment, typical, and side effects beware. 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 Medication Injected: Med Injected: Procedure is lumbar epidural steroid injection under local anesthetic using sterile prep and drape at the L4-5 level using C-arm fluoroscopic guidance in both AP and lateral views medications injected is 120 mg Depo-Medrol +10mL preservative-free normal saline and 2 mL contrast- condition at discharge is stable patient tolerated procedure well had no complications. Condition at Discharge: Condition at Discharge: Condition at discharge stable, pain tolerated procedure well and had no complications. KASSI HIGGINS MD Jan 04, 2021 11:11
--- NOTE | 2021-01-04 11:11 | PDOC4 ---
Procedure Note: ICD 10 Code: ICD 10 Code: M54.16 M 48.06 M51.36 Procedure Note: Patient was consented for lumbar epidural steroid injection with fluoroscopic guidance. Risks were discussed including but not limited to: Bleeding, infection, possibility of epidural hematoma and subsequent neurological compromise, dural puncture, headaches, spinal cord and/or nerve damage, side effects of steroid medication, and poor results regarding pain control. Patient understands and wished to proceed. Procedure is lumbar epidural steroid injection under local anesthetic using binta rile prep and drape at the L4-5 level using C-arm fluoroscopic guidance in both AP and lateral views medications injected is 120 mg Depo-Medrol +10mL preservative-free normal saline and 2 mL contrast- condition at discharge is stable patient tolerated procedure well had no complications. KASSI HIGGINS MD Jan 04, 2021 11:11
== END | disposition home or self-care (01) ==
LOC: PNCL 09:41
PROVIDERS: ATTEND Anesthesiology
DX: M51.16 Intervertebral disc disorders with radiculopathy, lumbar region (principal); M48.061 Spinal stenosis, lumbar region without neurogenic claudication; M50.10 Cervical disc disorder with radiculopathy, unspecified cervical region; E66.9 Obesity, unspecified; M19.90 Unspecified osteoarthritis, unspecified site; F32.9 Major depressive disorder, single episode, unspecified; Z79.82 Long term (current) use of aspirin; Z79.899 Other long term (current) drug therapy; Z90.49 Acquired absence of other specified parts of digestive tract; Z98.890 Other specified postprocedural states; Z88.2 Allergy status to sulfonamides; Z88.8 Allergy status to other drugs, medicaments and biological substances
CPT/HCPCS: 62323; J1030; J1040; Q9965